=== PATIENT | male | born 1930 | race Caucasian/White ===

== ENCOUNTER → 2017-02-22 | Outpatient (CLI) | payer MEDICARE, OTHER ==
[~2017-02-22] MED LIST: ALPR0.5T7 PO; AMLO2.5T PO; ASP325T PO; ASPI-587 PO; ASPI-983 PO; ASPI325T32 PO; ATOR40TA PO; ATOR40TA70 PO; ATOR80TA2 PO; CETI10TA20 PO; CITA10TA7 PO; CITA10TA70 PO; DOXA2TAB2 PO; ENAL2.5T PO; FEXO180T PO; FINA5TAB6 PO; FNST5T PO; FURO20TA4 PO; MECL12.579 PO; MULT-963 PO; NEBI5TAB8 PO; NITR12SP5 TL; OMEG-13 PO; OMEG1CAP51 PO; POLY17PO6 PO; POTA10CA43 PO; POTA10TA10 PO; RIVA20TA PO; SENN8.6T10 PO; TAMS0.4C2 PO; TMSL.4C PO; TRAM50TA2 PO; WARF5TAB6 PO; WRF10T PO; WRF5T PO
== END ==
LOC: CARD 13:46
PROVIDERS: ATTEND Internal Medicine Cardiovascular Disease
DX: I25.10 Atherosclerotic heart disease of native coronary artery without angina pectoris (principal); I10 Essential (primary) hypertension; E78.2 Mixed hyperlipidemia; R06.02 Shortness of breath
CPT/HCPCS: 93306

== ENCOUNTER → 2017-05-29 | Outpatient (CLI) | payer MEDICARE, OTHER ==
[~2017-05-29] MED LIST changes: +SENN-148 PO; -SENN8.6T10 PO
--- NOTE | 2017-05-29 11:31 | Diagnostic Imaging Report ---
INDICATION: Recent fall. Now with headache. TECHNIQUE: Routine non contrast-enhanced axial images were obtained from the skull base to the vertex. COMPARISON: 05/06/2015. FINDINGS: The ventricles and cortical sulci are diffusely prominent, compatible with age-related volume loss. There are confluent areas of abnormal, low attenuation in the periventricular white matter. This is consistent with chronic small vessel ischemic changes. 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 There is no midline shift or mass-effect. No acute intra-axial hemorrhage is seen. There are no abnormal areas of increased or decreased density to suggest acute hemorrhage or edema. No extra-axial masses or collections are present. The bony calvarium is intact. The visualized paranasal sinuses show minimal mucosal thickening. The mastoid air cells are clear. IMPRESSION: 1. No acute intracranial abnormality. No CT evidence of mass, acute infarct or intracranial hemorrhage. 2. Chronic small vessel ischemic changes in the deep white matter. Dictated by: Dictated on workstation # [id number]
== END ==
LOC: RAD 11:01
PROVIDERS: ATTEND Nurse Practitioner Family
DX: R51 Headache (principal)
CPT/HCPCS: 70450

== ENCOUNTER 2017-05-31 16:06 | Observation (INO) | payer MEDICARE, OTHER ==
[~2017-05-31] VITALS: Ht 188 cm; Wt 75.8 kg
--- OUTSIDE RECORDS SUMMARY | 2017-05-31 16:13 | XMS REPORT | Continuity of Care Document ---
Author Author [facility] Organization [facility] Address Unknown Phone Unavailable Allergies Active Description Code Type Severity Reaction Onset Reported/Identified Relationship to Patient Clinical Status Yes doxycycline [id number] Drug Allergy Unknown N/A 12/23/2008 Yes loratadine [id number] Drug Allergy Unknown N/A 12/23/2008 Yes loratadine [id number] Drug Allergy Moderate HEADACHE 06/22/2015 Yes hydrocodone [id number] Drug Allergy Unknown N/A 06/22/2015 Yes loratadine [id number] Drug Allergy Unknown HEADACHE 06/22/2015 Medications Problems Date Dx Coded Attending Type Code Diagnosis Diagnosed By 04/09/2011 Ot 845.00 04/09/2011 Ot 959.7 04/09/2011 Ot E000.8 04/09/2011 Ot E888.9 08/03/2011 Ot 427.31 08/03/2011 Ot 427.81 08/08/2012 Ot 780.2 SYNCOPE AND COLLAPSE 08/08/2012 Ot 782.0 SKIN SENSATION DISTURB 08/08/2012 Ot V58.61 ANTICOAGULANTS,LT,CURRENT USE 08/08/2012 Ot V58.69 OTH MED,LT,CURRENT USE 10/07/2014 Ot 272.4 HYPERLIPIDEMIA NEC/NOS 10/07/2014 Ot 401.9 HYPERTENSION NOS 10/07/2014 Ot 414.01 CORONARY ATHEROSCLEROSIS OF [place] CORON 10/07/2014 Ot 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[place] 10/07/2014 Ot 427.31 ATRIAL FIBRILLATION 10/07/2014 Ot 427.81 SINOATRIAL NODE DYSFUNCT 10/07/2014 Ot 440.0 AORTIC ATHEROSCLEROSIS 10/07/2014 Ot 441.4 ABDOM AORTIC ANEURYSM 10/07/2014 Ot 786.50 CHEST PAIN NOS 10/07/2014 Ot 794.30 ABN CARDIOVASC STUDY NOS 10/07/2014 Ot V15.82 HISTORY OF TOBACCO USE 10/07/2014 Ot V45.81 AORTOCORONARY BYPASS 10/07/2014 Ot V58.61 ANTICOAGULANTS,LT,CURRENT USE 10/07/2014 Ot V58.69 OT MED,LT,CURRENT USE 05/26/2015 CAMMY DANG, RAJI Marcos Ot 780.4 05/26/2015 CAMMY DANG, RAJI Marcos Ot 781.2 06/03/2015 RAJI CHAWLA MD Ot 780.4 06/03/2015 RAJI CHAWLA MD Ot 781.2 06/22/2015 Ot 414.00 06/22/2015 Ot 424.0 06/22/2015 Ot 397.0 06/22/2015 Ot 401.9 06/22/2015 Ot 414.00 06/22/2015 Ot 424.0 06/22/2015 Ot 428.0 06/22/2015 Ot 427.31 06/22/2015 Ot 427.81 06/22/2015 Ot 272.4 06/22/2015 Ot 397.0 06/22/2015 Ot 401.9 06/22/2015 Ot 414.00 06/22/2015 Ot 424.0 06/22/2015 Ot 272.4 06/22/2015 Ot 401.9 06/22/2015 Ot 414.00 06/22/2015 RASTA DANG, BETZY Whaley Ot 787.91 06/22/2015 BETZY MAGDALENO MD Ot 789.00 06/22/2015 NICOLETTE PA, RASHAD K Ot 397.0 06/22/2015 NICOLETTE PA, RASHAD K Ot 401.9 06/22/2015 SKINNY-ABRAM PA, RASHAD K Ot 414.00 06/22/2015 SKINNY-ABRAM PA, RASHAD K Ot 424.0 06/22/2015 BABB-ABRAM PA, RASHAD K Ot 427.1 06/22/2015 BABB-ABRAM PA, RASHAD K Ot 427.31 06/22/2015 BABB-ABRAM PA, RASHAD K Ot 441.4 06/22/2015 BABB-ABRAM PA, RASHAD K Ot 780.2 06/22/2015 BABB-ABRAM PA, RASHAD K Ot 780.4 06/22/2015 BABB-ABRAM PA, RASHAD K Ot 272.4 06/22/2015 SKINNY-ABRAM PA, RASHAD K Ot 414.00 06/22/2015 SKINNYRASHAD VALVERDE Ot 427.31 06/22/2015 RASHAD DONATO Ot 429.3 06/22/2015 RASHAD DONATO Ot 780.2 06/22/2015 RASHAD DONATO Ot 780.4 06/22/2015 CAMMY DANG, RAJI Marcos Ot 780.4 06/22/2015 RAJI CHAWLA MD Ot 781.2 06/22/2015 ALY BAKER MD Ot I71.4 06/22/2015 Ot 427.31 06/22/2015 Ot 427.81 06/22/2015 Ot 427.31 06/22/2015 Ot 427.81 06/22/2015 Ot 427.31 06/22/2015 Ot 427.81 06/23/2015 RAJI CHAWLA MD Ot D64.9 ANEMIA, UNSPECIFIED 06/23/2015 RAJI CHAWLA MD Ot I10 ESSENTIAL (PRIMARY) HYPERTENSION 06/23/2015 RAJI CHAWLA MD Ot K56.41 FECAL IMPACTION 06/23/2015 RAJI CHAWLA MD Ot R33.9 RETENTION OF URINE, UNSPECIFIED 06/23/2015 RAJI CHAWLA MD Ot T85.698D [facility] COMPL OF INTERNAL PROSTH DEV/GRFT , 07/02/2015 ALY BAKER MD Ot I71.4 07/19/2015 ALY BAKER MD Ot I71.4 10/07/2015 Ot 414.00 10/07/2015 Ot 424.0 10/07/2015 Ot 397.0 10/07/2015 Ot 401.9 10/07/2015 Ot 414.00 10/07/2015 Ot 424.0 10/07/2015 Ot 428.0 10/07/2015 Ot 427.31 10/07/2015 Ot 427.81 10/07/2015 Ot 272.4 10/07/2015 Ot 397.0 10/07/2015 Ot 401.9 10/07/2015 Ot 414.00 10/07/2015 Ot 424.0 10/07/2015 Ot 272.4 10/07/2015 Ot 401.9 10/07/2015 Ot 414.00 10/07/2015 BETZY MAGDALENO MD Ot 787.91 10/07/2015 BETZY MAGDALENO MD Ot 789.00 10/07/2015 BABB-ABRAM PA, RASHAD K Ot 397.0 10/07/2015 BABB-ABRAM PA, RASHAD K Ot 401.9 10/07/2015 BABB-ABRAM PA, RASHAD K Ot 414.00 10/07/2015 BABB-ABRAM PA, RASHAD K Ot 424.0 10/07/2015 BABB-ABRAM PA, RASHAD K Ot 427.1 10/07/2015 BABB-ABRAM PA, RASHAD K Ot 427.31 10/07/2015 BABB-ABRAM PA, RASHAD K Ot 441.4 10/07/2015 BABB-ABRAM PA, RASHAD K Ot 780.2 10/07/2015 BABB-ABRAM PA, RASHAD K Ot 780.4 10/07/2015 BABB-ABRAM PA, RASHAD K Ot 272.4 10/07/2015 BABB-ABRAM PA, RASHAD K Ot 414.00 10/07/2015 BABB-ABRAM PA, RASHAD K Ot 427.31 10/07/2015 BABB-ABRAM PA, RASHAD K Ot 429.3 10/07/2015 BABB-ABRAM PA, RASHAD K Ot 780.2 10/07/2015 BABB-ABRAM PA, RASHAD K Ot 780.4 10/07/2015 CAMMY DANG, RAJI Marcos Ot 780.4 10/07/2015 RAJI CHAWLA MD Ot 781.2 10/07/2015 SAMUEL DANG, ALY Arora Ot I71.4 10/28/2015 JANET DANG, RAS Estrada Ot I48.91 10/28/2015 JANET DANG, RAS Estrada Ot E78.2 10/28/2015 JANET DANG, RAS Estrada Ot I10 10/28/2015 JANET DANG, RAS Estrada Ot I25.10 10/28/2015 JANET DANG, RAS Estrada Ot I48.0 10/28/2015 JANET DANG, RAS Estrada Ot I73.9 11/01/2015 JANET DANG, RAS Estrada Ot I48.91 11/16/2015 JANET DANG, RAS Estrada Ot E78.2 11/16/2015 JANET DANG, RAS Estrada Ot I10 11/16/2015 JANET DANG, RAS Estrada Ot I25.10 11/16/2015 RAS GONZALES MD Ot I48.0 11/16/2015 RAS GONZALES MD Ot I73.9 12/07/2015 RAS GONZALES MD Ot E78.2 MIXED HYPERLIPIDEMIA 12/07/2015 RAS GONZALES MD Ot I10 ESSENTIAL (PRIMARY) HYPERTENSION 12/07/2015 RAS GONZALES MD Ot I25.10 ATHSCL HEART DISEASE OF [place] CORONARY 12/07/2015 RAS GONZALES MD Ot I48.0 PAROXYSMAL ATRIAL FIBRILLATION 12/07/2015 RAS GONZALES MD Ot I73.9 PERIPHERAL VASCULAR DISEASE, UNSPECIFIED 02/22/2017 Ot 272.4 HYPERLIPIDEMIA NEC/NOS 02/22/2017 Ot 397.0 TRICUSPID VALVE DISEASE 02/22/2017 Ot 401.9 HYPERTENSION NOS 02/22/2017 Ot 414.00 CORON ATHEROSCLER NOS TYPE VESSEL, NATIV 02/22/2017 Ot 424.0 MITRAL VALVE DISORDER 02/22/2017 Ot 272.4 HYPERLIPIDEMIA NEC/NOS 02/22/2017 Ot 401.9 HYPERTENSION NOS 02/22/2017 Ot 414.00 CORON ATHEROSCLER NOS TYPE VESSEL, NATIV 02/22/2017 RASTA DANG, BETZY Whaley Ot 787.91 DIARRHEA 02/22/2017 RASTA DANG, BETZY Whaley Ot 789.00 ABDOMINAL PAIN, UNSPECIFIED SITE 02/22/2017 RASHAD DONATO Ot 397.0 TRICUSPID VALVE DISEASE 02/22/2017 RASHAD DONATO Ot 401.9 HYPERTENSION NOS 02/22/2017 RASHAD DONATO Ot 414.00 CORON ATHEROSCLER NOS TYPE VESSEL, NATIV 02/22/2017 RASHAD DONATO Ot 424.0 MITRAL VALVE DISORDER 02/22/2017 RASHAD DONATO Ot 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 02/22/2017 RASHAD DONATO Ot 427.31 ATRIAL FIBRILLATION 02/22/2017 RASHAD DONATO Ot 441.4 ABDOM AORTIC ANEURYSM 02/22/2017 RASHAD DONATO Ot 780.2 SYNCOPE AND COLLAPSE 02/22/2017 RASHAD DONATO Ot 780.4 DIZZINESS AND GIDDINESS 02/22/2017 RASHAD DONATO Ot 272.4 HYPERLIPIDEMIA NEC/NOS 02/22/2017 RASHAD DONATO Ot 414.00 CORON ATHEROSCLER NOS TYPE VESSEL, NATIV 02/22/2017 RASHAD DONATO Ot 427.31 ATRIAL FIBRILLATION 02/22/2017 RASHAD DONATO Ot 429.3 CARDIOMEGALY 02/22/2017 RASHAD DONATO Ot 780.2 SYNCOPE AND COLLAPSE 02/22/2017 RASHAD DONATO Ot 780.4 DIZZINESS AND GIDDINESS 02/22/2017 RAJI CHAWLA MD Ot 780.4 DIZZINESS AND GIDDINESS 02/22/2017 RAJI CHAWLA MD Ot 781.2 ABNORMALITY OF GAIT 02/22/2017 SAMUEL DANG, ALY Arora Ot I71.4 ABDOMINAL AORTIC ANEURYSM, 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 02/22/2017 RAS GONZALES MD Ot I48.91 UNSPECIFIED ATRIAL FIBRILLATION 02/22/2017 RAS GONZALES MD Ot E78.2 MIXED HYPERLIPIDEMIA 02/22/2017 RAS GONZALES MD Ot I10 ESSENTIAL (PRIMARY) HYPERTENSION 02/22/2017 RAS GONZALES MD Ot I25.10 ATHSCL HEART DISEASE OF [place] CORONARY 02/22/2017 RAS GONZALES MD Ot I48.0 PAROXYSMAL ATRIAL FIBRILLATION 02/22/2017 RAS GONZALES MD Ot I73.9 PERIPHERAL VASCULAR DISEASE, UNSPECIFIED 02/23/2017 RAS GONZALES MD Ot E78.2 MIXED HYPERLIPIDEMIA 02/23/2017 RAS GONZALES MD Ot I10 ESSENTIAL (PRIMARY) HYPERTENSION 02/23/2017 RAS GONZALES MD Ot I25.10 ATHSCL HEART DISEASE OF [place] CORONARY 02/23/2017 RAS GONZALES MD Ot R06.02 SHORTNESS OF BREATH 02/26/2017 RAS GONZALES MD Ot E78.2 MIXED HYPERLIPIDEMIA 02/26/2017 RAS GONZALES MD Ot I10 ESSENTIAL (PRIMARY) HYPERTENSION 02/26/2017 RAS GONZALES MD Ot I25.10 ATHSCL HEART DISEASE OF [place] CORONARY 02/26/2017 RAS GONZALES MD Ot R06.02 SHORTNESS OF BREATH 02/26/2017 RAS GONZALES MD Ot E78.2 MIXED HYPERLIPIDEMIA 02/26/2017 RAS GONZALES MD J Ot I10 ESSENTIAL (PRIMARY) HYPERTENSION 02/26/2017 RAS GONZALES MD Ot I25.10 ATHSCL HEART DISEASE OF [place] CORONARY 02/26/2017 RAS GONZALES MD Ot R06.02 SHORTNESS OF BREATH 02/26/2017 RAS GONZALES MD Ot E78.2 MIXED HYPERLIPIDEMIA 02/26/2017 RAS GONZALES MD J Ot I10 ESSENTIAL (PRIMARY) HYPERTENSION 02/26/2017 RAS GONZALES MD Ot I25.10 ATHSCL HEART DISEASE OF [place] CORONARY 02/26/2017 RAS GONZALES MD Ot R06.02 SHORTNESS OF BREATH 02/26/2017 RAS GONZALES MD Ot E78.2 MIXED HYPERLIPIDEMIA 02/26/2017 RAS GONZALES MD Ot I10 ESSENTIAL (PRIMARY) HYPERTENSION 02/26/2017 RAS GONZALES MD Ot I25.10 ATHSCL HEART DISEASE OF [place] CORONARY 02/26/2017 RAS GONZALES MD Ot R06.02 SHORTNESS OF BREATH 02/26/2017 RAS GONZALES MD Ot E78.2 MIXED HYPERLIPIDEMIA 02/26/2017 RAS GONZALES MD Ot I10 ESSENTIAL (PRIMARY) HYPERTENSION 02/26/2017 RAS GONZALES MD Ot I25.10 ATHSCL HEART DISEASE OF [place] CORONARY 02/26/2017 RAS GONZALES MD Ot R06.02 SHORTNESS OF BREATH 02/26/2017 RAS GONZALES MD Ot E78.2 MIXED HYPERLIPIDEMIA 02/26/2017 RAS GONZALES MD Ot I10 ESSENTIAL (PRIMARY) HYPERTENSION 02/26/2017 RAS GONZALES MD Ot I25.10 ATHSCL HEART DISEASE OF [place] CORONARY 02/26/2017 RAS GONZALES MD Ot R06.02 SHORTNESS OF BREATH 03/16/2017 RAS GONZALES MD Ot E78.2 MIXED HYPERLIPIDEMIA 03/16/2017 RAS GONZALES MD J Ot I10 ESSENTIAL (PRIMARY) HYPERTENSION 03/16/2017 RAS GONZALES MD Ot I25.10 ATHSCL HEART DISEASE OF [place] CORONARY 03/16/2017 RAS GONZALES MD J Ot R06.02 SHORTNESS OF BREATH 03/26/2017 RAS GONZALES MD Ot E78.2 MIXED HYPERLIPIDEMIA 03/26/2017 RAS GONZALES MD Ot I10 ESSENTIAL (PRIMARY) HYPERTENSION 03/26/2017 RAS GONZALES MD Ot I25.10 ATHSCL HEART DISEASE OF [place] CORONARY 03/26/2017 RAS GONZALES MD Ot R06.02 SHORTNESS OF BREATH Procedures Results Encounters ACCT No. Visit Date/Time Discharge Status Pt. Type Provider Facility Loc./Unit Complaint [id number] 02/22/2017 13:46:00 2016 23:59:59 CLS Outpatient RAS GONZALES MD [facility] CARD CAD I25.10,HTN I10 [id number] 10/25/2015 08:11:00 2015 23:59:59 CLS Outpatient RAS GONZALES MD [facility] CARD AF,CAD,HTN,MIXED HYPERLIPIDEMIA,PVD [id number] 10/07/2015 13:42:00 2015 23:59:59 CLS Outpatient RAS GONZALES MD [facility] CARD AF NON TRAMATIC TEAR OF SKIN [id number] 06/21/2015 20:56:00 2014 09:36:00 DIS Inpatient RAJI CHAWLA MD [facility] 4TH FECAL IMPACTION,ENDOLEAK OF ANEURYSM, ANEMIA, [id number] 06/09/2015 09:33:00 2014 23:59:59 CLS Outpatient ALY BAKER MD [facility] RT AAA [id number] 05/06/2015 09:07:00 2014 23:59:59 CLS Outpatient RAJI CHAWLA MD [facility] RAD DIZZINESS, GAIT ABNORMALITIY, MILD MEMORY LOSS [id number] 04/22/2014 07:27:00 2013 23:59:59 CLS Outpatient RASHAD DONATO [facility] CARD AF,CAD,HTN,HLP [id number] 04/21/2014 07:34:00 2013 23:59:59 CLS Outpatient NICOLETTE KAPLAN, RASHAD Albarran [facility] CARD AF,CAD,HTN,HLP [id number] 10/22/2013 10:03:00 2013 23:59:59 CLS Outpatient BETZY MAGDALENO MD [facility] RAD DIARRHEA,ABD PAIN [id number] 06/22/2015 01:20:00 Document Registration [id number] 10/07/2014 07:48:00 Document Registration [id number] 09/25/2012 07:16:00 Document Registration [id number] 09/24/2012 10:02:00 Document Registration [id number] 08/08/2012 09:56:00 Document Registration [id number] 08/04/2011 09:00:00 Document Registration [id number] 05/05/2011 08:31:00 Document Registration [id number] 04/25/2011 08:45:00 Document Registration [id number] 04/09/2011 08:37:00 Document Registration [id number] 04/20/2010 08:17:00 Document Registration
--- NOTE | 2017-05-31 16:21 | ED Neurological Problem ---
General Chief Complaint: Neuro-Stroke Like Symptoms Stated Complaint: STROKE SYMPTOMS;NUMB MOUTH AND ARM Nursing Triage Note: per patient has been having difficulty speaking for the last 30 minutes, patient reports that patient has periods that are worse than others and times where he is normal. Patient reports that he has had weakness and was dropping stuff with his L hand yesterday and today Nursing Sepsis Screen: No Definite Risk Source: patient Exam Limitations: no limitations History of Present Illness Time seen by provider: 16:10 Initial Comments Here from home with who reports difficulty speaking for the last 30 minutes. Apparently yesterday he woke up and had weakness and was drop and step with his left hand intermittently yesterday and today. That had resolved and then he was doing okay but then was having intermittent speech difficulty. Complains of headache. Apparently had a fall a couple weeks ago and had a CT scan afterwards. Patient is on Xarelto. He reports that he has the speech staff where he can't get his words out. Timing/Duration: 1/2 hour Severity: moderate Associated Symptoms: confusion, No fever/chills, No loss of consciousness, No muscle spasms, slurred speech, weakness Allergies and Home Medications Allergies Coded Allergies: doxycycline (Verified Allergy, Unknown, 12/23/08) hydrocodone (Unverified Allergy, Unknown, 06/22/15) loratadine (Verified Adverse Reaction, Intermediate, HEADACHE, 06/22/15) Home Medications Alprazolam 0.5 Mg Tablet, 0.25-0.5 MG PO BID PRN for ANXIETY, (Reported) Aspirin 81 Mg Tablet.dr, 81 MG PO DAILY, (Reported) Atorvastatin Calcium 40 Mg Tablet, 40 MG PO HS, (Reported) Cetirizine HCl 10 Mg Tablet, 10 MG PO DAILY, (Reported) Citalopram Hydrobromide 10 Mg Tablet, 10 MG PO DAILY, (Reported) Doxazosin Mesylate 2 Mg Tablet, 2 MG PO HS, (Reported) LAST FILLED 01-12-15 #90 Enalapril Maleate 2.5 Mg Tablet, 2.5 MG PO BID, (Reported) Finasteride 5 Mg Tablet, 5 MG PO DAILY, (Reported) Furosemide 20 Mg Tablet, 20 MG PO DAILY PRN for SWELLING, (Reported) Multivitamin 1 Each Tablet, 1 TAB PO DAILY, (Reported) Nebivolol HCl 5 Mg Tablet, 5 MG PO HS, (Reported) Nitroglycerin 12 Gm [place], 1 SPRAY TL UD PRN for CHEST PAIN, (Reported) [place]-3 Fatty Acids/Fish Oil 1 Each Capsule, 1,200 MG PO BID, (Reported) Polyethylene Glycol 3350 17 Gm Powd.pack, 17 GM PO DAILY, #30 Ref 1 Prescribed by: RAJI PALOMARES on 06/23/15 0935 Potassium Chloride 10 Meq Tablet.er, 10 MEQ PO DAILY PRN for WHEN TAKING FUROSEMIDE, (Reported) Rivaroxaban 20 Mg Tablet, 20 MG PO DAILY @ 1800, (Reported) Sennosides 8.6 Mg Tablet, 8.6 MG PO BID PRN for CONSTIPATION, #60 Ref 1 Prescribed by: RAJI PALOMARES on 06/23/15 0935 Tramadol HCl 50 Mg Tablet, 50 MG PO Q6H PRN for PAIN, (Reported) Constitutional: see HPI, No chills, No fever Eyes: No Symptoms Reported Ears, Nose, Mouth, Throat: no symptoms reported Respiratory: no symptoms reported Cardiovascular: no symptoms reported Gastrointestinal: No abdominal pain, No nausea, No vomiting Genitourinary: no symptoms reported Musculoskeletal: see HPI, muscle weakness Skin: no symptoms reported Psychiatric/Neurological: See HPI, Headache, Weakness Endocrine: No Symptoms Reported All Other Systems Reviewed Negative Unless Noted: Yes Past Shjpuqf-Fkpxjz-Trpfbj Hx Patient Social History Alcohol Use: Denies Use Recreational Drug Use: No Smoking Status: Former Smoker 2nd Hand Smoke Exposure: No Recent Foreign Travel: No Contact w/Someone Who Travel: No Recent Infectious Disease Expo: No Immunizations Up To Date Tetanus Booster (TDap): Unknown Date of Pneumonia Vaccine: May 20, 2013 Date of Influenza Vaccine: May 19, 2015 Surgeries History of Surgeries: Yes Surgeries: Abdominal, CABG, Pacemaker, Vascular Surgery Respiratory History of Respiratory Disorde: No Cardiovascular History of Cardiac Disorders: Yes Cardiac Disorders: Aneurysm, Atrial Fibrillation, Coronary Artery Disease, Hypertension, Valvular Heart Disease Neurological History of Neurological Disord: No Reproductive System Hx Reproductive Disorders: No Sexually Transmitted Disease: No HIV/AIDS: No Genitourinary Genitourinary Disorders: Benign Prostatic Hyperpl Gastrointestinal History of Gastrointestinal Di: Yes (FECAL IMPACTION 06/22/15) Musculoskeletal History of Musculoskeletal Dis: Yes Musculoskeletal Disorders: Arthritis Endocrine History of Endocrine Disorders: No HEENT HEENT Disorders: Cataract Loss of Vision: Denies Hearing Impairment: Denies Cancer History of Cancer: No Psychosocial History of Psychiatric Problem: Yes Behavioral Health Disorders: Anxiety Integumentary History of Skin or Integumenta: No Blood Transfusions History of Blood Disorders: No Adverse Reaction to a Blood Tr: No Reviewed Nursing Assessment Reviewed/Agree w Nursing PMH: Yes Family Medical History Significant Family History: Heart Disease, Hypertension, Stroke Family Medial History: FH: lung cancer G8 BROTHER FH: stroke 19 FATHER Myocardial infarction 19 FATHER G8 SISTER Physical Exam Vital Signs Vital Sign - Last 12Hours 05/31/17 16:12 Temp 98.2 Pulse 76 Resp 18 B/P (MAP) 163/76 Pulse Ox 98 Capillary Refill : Less Than 3 Seconds General Appearance: WD/WN, no apparent distress HEENT: PERRL/EOMI, pharynx normal Neck: full range of motion, supple Respiratory: lungs clear, normal breath sounds Cardiovascular: regular rate, rhythm, no murmur Gastrointestinal: non tender, soft Back: normal inspection, no CVA tenderness, no vertebral tenderness Extremities: normal range of motion, non-tender, normal inspection, no pedal edema Neurologic/Psychiatric: alert, normal mood/affect, oriented x 3 Crainal Nerves: normal hearing, other (intermittent speech difficulty with word searching and garbled speech and then clears) Coordination/Gait: normal finger to nose, normal gait Motor/Sensory: no motor deficit, no sensory deficit, no pronator drift Skin: normal color, warm/dry Progress/Results/Core Measures Results/Orders Lab Results Laboratory Tests Test 05/31/17 16:30 Range/Units White Blood Count 5.5 4.3-11.0 10^3/uL Red Blood Count 3.66 L 4.35-5.85 10^6/uL Hemoglobin 11.8 L 13.3-17.7 G/DL Hematocrit 36 L 40-54 % Mean Corpuscular Volume 98 80-99 FL Mean Corpuscular Hemoglobin 32 25-34 PG Mean Corpuscular Hemoglobin Concent 33 32-36 G/DL Red Cell Distribution Width 14.2 10.0-14.5 % Platelet Count 181 130-400 10^3/uL Mean Platelet Volume 9.3 7.4-10.4 FL Neutrophils (%) (Auto) 70 42-75 % Lymphocytes (%) (Auto) 21 12-44 % Monocytes (%) (Auto) 9 0-12 % Eosinophils (%) (Auto) 0 0-10 % Basophils (%) (Auto) 0 0-10 % Neutrophils # (Auto) 3.9 1.8-7.8 X 10^3 Lymphocytes # (Auto) 1.1 1.0-4.0 X 10^3 Monocytes # (Auto) 0.5 0.0-1.0 X 10^3 Eosinophils # (Auto) 0.0 0.0-0.3 10^3/uL Basophils # (Auto) 0.0 0.0-0.1 10^3/uL Prothrombin Time 15.6 H 12.2-14.7 SEC INR Comment 1.2 0.8-1.4 Activated Partial Thromboplast Time 36 H 24-35 SEC D-Dimer 1.18 H 0.00-0.49 UG/ML Sodium Level 137 135-145 MMOL/L Potassium Level 4.2 3.6-5.0 MMOL/L Chloride Level 104 98-107 MMOL/L Carbon Dioxide Level 25 21-32 MMOL/L Anion Gap 8 5-14 MMOL/L Blood Urea Nitrogen 19 H 7-18 MG/DL Creatinine 1.56 H 0.60-1.30 MG/DL Estimat Glomerular Filtration Rate 42 BUN/Creatinine Ratio 12 Glucose Level 114 H 70-105 MG/DL Calcium Level 9.5 8.5-10.1 MG/DL Total Bilirubin 0.7 0.1-1.0 MG/DL Aspartate Amino Transf (AST/SGOT) 18 5-34 U/L Alanine Aminotransferase (ALT/SGPT) 11 0-55 U/L Alkaline Phosphatase 68 40-136 U/L Troponin I < 0.30 <0.30 NG/ML Total Protein 7.5 6.4-8.2 GM/DL Albumin 4.1 3.2-4.5 GM/DL My Orders Orders - ABHI MOCK MD Cbc With Automated Diff (05/31/17 16:18) Protime With Inr (05/31/17 16:18) Partial Thromboplastin Time (05/31/17 16:18) Comprehensive Metabolic Panel (05/31/17 16:18) Fibrin Degradation Products (05/31/17 16:18) Troponin I (05/31/17 16:18) Ua Culture If Indicated (05/31/17 16:18) Chest 1 View, Ap/Pa Only (05/31/17 16:18) Ekg Tracing (05/31/17 16:18) Nothing By Mouth (05/31/17 Dinner) Accucheck Stat ONCE (05/31/17:18) Saline Lock/Iv-Start (05/31/17 16:18) Vital Signs - Stroke Q15M (05/31/17 16:18) Ct Head Wo-R/O Stroke (05/31/17 16:18) O2 (05/31/17:18) Intake & Output 06,14,22 (05/31/17 16:18) Monitor-Rhythm Ecg Trace Only (05/31/17 16:18) Dysphagia Screening Tool (05/31/17:) Vital Signs/I&O Vital Sign - Last 12Hours 05/31/17 16:12 Temp 98.2 Pulse 76 Resp 18 B/P (MAP) 163/76 Pulse Ox 98 Blood Pressure Mean: 105 Progress Note : Progress Note Seen and evaluated on arrival. Stroke team activation initiated. Rapid assessment completed. Patient's symptoms resolved after removing the patient but then had garbled speech to for a few minutes and then that resolved again. Stroke scale 0 at time of evaluation. Rapid CT assessment ordered. Patient is not candidate for TPA due to low stroke scale and rapidly resolving symptoms as well as being on Xarelto. Labs, UA, EKG and chest x-ray ordered. Monitor patient. Patient was able to walk without difficulty and passed his dysphagia screen. I did discuss the case with Dr. Palomares at 1728. We will admit the patient for observation. Patient has elevated d-dimer. He is on Xarelto 20 mg daily and is taking that as directed. We will go ahead and initiate a dose of that now and give ASA 325 milligrams by mouth. Patient is complaining of headache. Tramadol 50 mg by mouth given as he said Tylenol is not helping. Admit, observation status. Dr. Palomares accepts patient for admission. Patient and family agree with plan. Carotid ultrasound in a.m. ECG Initial ECG Impression Date: May 31, 2017 Initial ECG Impression Time: 16:31 Initial ECG Rate: 72 Comment Ventricular paced rhythm with nonspecific intraventricular conduction delay. No evidence of ST elevation [place]. Similar to previous. Interpreted by me. Diagnostic Imaging Diagonstic Imaging: CT Plain Films/CT/US/NM/MRI: head Comments NAME: VISHAL MILLER [facility] REC#: [id number] PT STATUS: REG ER : 1929 PHYSICIAN: ABHI MOCK MD ADMIT DATE: 05/31/17/ER Signed Date of Exam: 05/31/17 CT HEAD WO-R/O STROKE CLINICAL INDICATION: Patient with intermittent left hand weakness, numbness x2 days. Patient has intermittent slurred speech. EXAM: Axial CT scan of brain performed without IV contrast. COMPARISON: Head CT without IV contrast dated 05/29/2017. Head CT without IV contrast dated 04/23/2008. FINDINGS: There is no evidence of acute cerebral infarct, intracranial hemorrhage, or gross mass effect. Stable prominent perivascular space versus chronic lacunar infarct involving right basal ganglia region. There is stable focal area of low attenuation involving the medial right thalamus which is seen on the comparison head CT dated 04/23/2008. Again seen diffuse brain parenchymal volume loss. There is normal tim-white matter distinction. There is no significant midline shift or herniation. There is no evidence of hydrocephalus. The basal cisterns are unremarkable. The skull, extracranial soft tissue, and orbits are unremarkable. The paranasal sinuses are unremarkable. IMPRESSION: Stable CT scan of brain with no evidence of interval acute intracranial process. If there is continued concern for acute cerebral infarct, then MRI of the brain would better evaluate. Dictated by: Dictated on workstation # [id number] Dict: 05/31/17 1629 Trans: 05/31/17 173 Interpreted by: ENEDINA SARAVIA MD Electronically signed by: ENEDINA SARAVIA MD 05/31/17 1734 Diagonstic Imaging: Xray Plain Films/CT/US/NM/MRI: chest Comments NAME: VISHAL MILLER [facility] REC#: [id number] PT STATUS: REG ER : 1929 PHYSICIAN: ABHI MOCK MD ADMIT DATE: 05/31/17/ER Signed Date of Exam: 05/31/17 CHEST 1 VIEW, AP/PA ONLY INDICATION: Stroke protocol. COMPARISON: 10/07/2014. EXAMINATION: Single frontal radiographic view of the chest was obtained. FINDINGS: Moderate cardiomegaly. Pulmonary vasculature, however, is within normal limits. Left-sided single lead pacemaker and sternotomy wires are noted. There is aortic atherosclerosis. Lungs are clear and show no focal consolidations, large effusion or pneumothoraces. Bony structures show no gross acute abnormality. IMPRESSION: Moderate cardiomegaly, but no evidence of overt failure. Dictated by: Dictated on workstation # [id number] Dict: 05/31/17 1629 Trans: 05/31/17 1737 Interpreted by: KISHORE DAVIS MD Electronically signed by: KISHORE DAVIS MD 05/31/17 1737 Departure Communication (Admissions) Time/Spoke to Admitting Phy: 17:28 Impression Impression: Primary Impression: Transient cerebral ischemia Qualified Codes: G45.9 - Transient cerebral ischemic attack, unspecified Disposition: ADMITTED INPATIENT Condition: Stable Admissions Decision to Admit Reason: Admit from ER (General) Decision to Admit/Date: May 31, 2017 Time/Decision to Admit Time: 17:28 Departure-Patient Inst. Referrals: RAJI PALOMARES MD (PCP/Family) Primary Care Physician ABHI MOCK MD May 31, 2017 16:21
--- NOTE | 2017-05-31 16:34 | Diagnostic Imaging Report ---
INDICATION: Stroke protocol. COMPARISON: 10/07/2014. EXAMINATION: Single frontal radiographic view of the chest was obtained. FINDINGS: Moderate cardiomegaly. Pulmonary vasculature, however, is within normal limits. Left-sided single lead pacemaker and sternotomy wires are noted. There is aortic atherosclerosis. Lungs are clear and show no focal consolidations, large effusion or pneumothoraces. Bony structures show no gross acute abnormality. IMPRESSION: Moderate cardiomegaly, but no evidence of overt failure. Dictated by: Dictated on workstation # [id number]
--- NOTE | 2017-05-31 16:38 | Diagnostic Imaging Report ---
CLINICAL INDICATION: Patient with intermittent left hand weakness, numbness x2 days. Patient has intermittent slurred speech. EXAM: Axial CT scan of brain performed without IV contrast. COMPARISON: Head CT without IV contrast dated 05/29/2017. Head CT without IV contrast dated 04/23/2008. FINDINGS: There is no evidence of acute cerebral infarct, intracranial hemorrhage, or gross mass effect. Stable prominent perivascular space versus chronic lacunar infarct involving right basal ganglia region. There is stable focal area of low attenuation involving the medial right thalamus which is seen on the comparison head CT dated 04/23/2008. Again seen diffuse brain parenchymal volume loss. There is normal tim-white matter distinction. There is no significant midline shift or herniation. There is no evidence of hydrocephalus. The basal cisterns are unremarkable. The skull, extracranial soft tissue, and orbits are unremarkable. The paranasal sinuses are unremarkable. IMPRESSION: Stable CT scan of brain with no evidence of interval acute intracranial process. If there is continued concern for acute cerebral infarct, then MRI of the brain would better evaluate. Dictated by: Dictated on workstation # [id number]
[2017-05-31 16:39] LABS: BASOPHILS % (AUTO) 0 % (0-10); EOSINOPHILS % (AUTO) 0 % (0-10); LYMPHOCYTES # (AUTO) 1.1 X 10^3 (1.0-4.0); LYMPHOCYTES % (AUTO) 21 % (12-44); MEAN CORPUSCULAR HEMOGLOBIN 32 PG (25-34); MEAN CORPUSCULAR HGB CONC 33 G/DL (32-36); MEAN CORPUSCULAR VOLUME 98 FL (80-99); MEAN PLATELET VOLUME 9.3 FL (7.4-10.4); MONOCYTES # (AUTO) 0.5 X 10^3 (0.0-1.0); MONOCYTES % (AUTO) 9 % (0-12); NEUTROPHILS # (AUTO) 3.9 X 10^3 (1.8-7.8); NEUTROPHILS % (AUTO) 70 % (42-75); PLATELET COUNT 181 10^3/uL (130-400); RED BLOOD COUNT 3.66 10^6/uL (4.35-5.85); RED CELL DISTRIBUTION WIDTH 14.2 % (10.0-14.5); WHITE BLOOD COUNT 5.5 10^3/uL (4.3-11.0)
[2017-05-31 16:49] LABS: INR 1.2 (0.8-1.4); PROTHROMBIN TIME PATIENT 15.6 SEC (12.2-14.7)
[2017-05-31 16:57] LABS: ALANINE AMINOTRANSFERASE 11 U/L (0-55); ALBUMIN 4.1 GM/DL (3.2-4.5); ANION GAP 8 MMOL/L (5-14); ASPARTATE AMINO TRANSFERASE 18 U/L (5-34); BILIRUBIN,TOTAL 0.7 MG/DL (0.1-1.0); BLOOD UREA NITROGEN 19 MG/DL (7-18); BUN/CREATININE RATIO 12; CALCIUM 9.5 MG/DL (8.5-10.1); CARBON DIOXIDE 25 MMOL/L (21-32); CHLORIDE 104 MMOL/L (98-107); CREATININE SERUM 1.56 MG/DL (0.60-1.30); GFR ESTIMATED 42; GLUCOSE 114 MG/DL (70-105); POTASSIUM 4.2 MMOL/L (3.6-5.0); SODIUM 137 MMOL/L (135-145); TOTAL PROTEIN 7.5 GM/DL (6.4-8.2)
[2017-05-31 17:03] LABS: TROPONIN I < 0.30 NG/ML (<0.30)
[2017-05-31] MEDS ORDERED: NS IV 1000 ML 1,000 ML IV ONE (17:36)
[2017-05-31] MEDS ORDERED: ASPIRIN 325 MG (5 GR) TABLET PO STA (17:43)
[2017-05-31] MEDS ORDERED: RIVAROXABAN 20 MG TABLET (XARELTO) PO ONE (17:45)
--- OUTSIDE RECORDS SUMMARY | 2017-05-31 17:53 | XMS REPORT | Continuity of Care Document ---
Author Author [facility] Organization [facility] Address Unknown Phone Unavailable Allergies Active Description Code Type Severity Reaction Onset Reported/Identified Relationship to Patient Clinical Status Yes doxycycline [id number] Drug Allergy Unknown N/A 12/23/2008 Yes loratadine [id number] Drug Allergy Unknown N/A 12/23/2008 Yes loratadine [id number] Drug Allergy Moderate HEADACHE 06/22/2015 Yes hydrocodone [id number] Drug Allergy Unknown N/A 06/22/2015 Yes loratadine [id number] Drug Allergy Unknown HEADACHE 06/22/2015 Medications Problems [...] NOS 10/07/2014 Ot 414.01 CORONARY ATHEROSCLEROSIS OF [place] CORON 10/07/2014 Ot 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 [...] UNSPECIFIED 06/23/2015 RAJI CHAWLA MD Ot T85.698D [facility] COMPL OF INTERNAL PROSTH DEV/GRFT , 07/02/2015 [...] BETZY MAGDALENO MD Ot 787.91 10/07/2015 BETZY MAGDALNEO MD Ot 789.00 10/07/2015 BABB-ABRAM PA, RASHAD [...] MD Ot I25.10 ATHSCL HEART DISEASE OF [place] CORONARY 12/07/2015 RAS GONZALES MD Ot I48.0 [...] MD Ot I25.10 ATHSCL HEART DISEASE OF [place] CORONARY 02/22/2017 RAS GONZALES MD Ot I48.0 PAROXYSMAL ATRIAL FIBRILLATION 02/22/2017 RAS GONZALES MD Ot I73.9 PERIPHERAL VASCULAR DISEASE, UNSPECIFIED 02/23/2017 RAS GONZALES MD Ot E78.2 MIXED HYPERLIPIDEMIA 02/23/2017 RAS GONZALES MD Ot I10 ESSENTIAL (PRIMARY) HYPERTENSION 02/23/2017 RAS GONZALES MD Ot I25.10 ATHSCL HEART DISEASE OF [place] CORONARY 02/23/2017 RAS GONZALES MD Ot R06.02 SHORTNESS OF BREATH 02/26/2017 RAS GONZALES MD Ot E78.2 MIXED HYPERLIPIDEMIA 02/26/2017 RAS GONZALES MD Ot I10 ESSENTIAL (PRIMARY) HYPERTENSION 02/26/2017 RAS GONZALES MD Ot I25.10 ATHSCL HEART DISEASE OF [place] CORONARY 02/26/2017 RAS GONZALES MD Ot R06.02 SHORTNESS OF BREATH 02/26/2017 RAS GONZALES MD Ot E78.2 MIXED HYPERLIPIDEMIA 02/26/2017 RAS GONZALES MD J Ot I10 ESSENTIAL (PRIMARY) HYPERTENSION 02/26/2017 RAS GONZALES MD Ot I25.10 ATHSCL HEART DISEASE OF [place] CORONARY 02/26/2017 RAS GONZALES MD Ot R06.02 SHORTNESS OF BREATH 02/26/2017 RAS GONZALES MD Ot E78.2 MIXED HYPERLIPIDEMIA 02/26/2017 RAS GONZALES MD J Ot I10 ESSENTIAL (PRIMARY) HYPERTENSION 02/26/2017 RAS GONZALES MD Ot I25.10 ATHSCL HEART DISEASE OF [place] CORONARY 02/26/2017 RAS GONZALES MD Ot R06.02 SHORTNESS OF BREATH 02/26/2017 RAS GONZALES MD Ot E78.2 MIXED HYPERLIPIDEMIA 02/26/2017 RAS GONZALES MD Ot I10 ESSENTIAL (PRIMARY) HYPERTENSION 02/26/2017 RAS GONZALES MD Ot I25.10 ATHSCL HEART DISEASE OF [place] CORONARY 02/26/2017 RAS GONZALES MD Ot R06.02 SHORTNESS OF BREATH 02/26/2017 RAS GONZALES MD Ot E78.2 MIXED HYPERLIPIDEMIA 02/26/2017 RAS GONZALES MD Ot I10 ESSENTIAL (PRIMARY) HYPERTENSION 02/26/2017 RAS GONZALES MD Ot I25.10 ATHSCL HEART DISEASE OF [place] CORONARY 02/26/2017 RAS GONZALES MD Ot R06.02 SHORTNESS OF BREATH 02/26/2017 RAS GONZALES MD Ot E78.2 MIXED HYPERLIPIDEMIA 02/26/2017 RAS GONZALES MD Ot I10 ESSENTIAL (PRIMARY) HYPERTENSION 02/26/2017 RAS GONZALES MD Ot I25.10 ATHSCL HEART DISEASE OF [place] CORONARY 02/26/2017 RAS GONZALES MD Ot R06.02 SHORTNESS OF BREATH 03/16/2017 RAS GONZALES MD Ot E78.2 MIXED HYPERLIPIDEMIA 03/16/2017 RAS GONZALES MD J Ot I10 ESSENTIAL (PRIMARY) HYPERTENSION 03/16/2017 RAS GONZALES MD Ot I25.10 ATHSCL HEART DISEASE OF [place] CORONARY 03/16/2017 RAS GONZALES MD J Ot R06.02 SHORTNESS OF BREATH 03/26/2017 RAS GONZALES MD Ot E78.2 MIXED HYPERLIPIDEMIA 03/26/2017 RAS GONZALES MD Ot I10 ESSENTIAL (PRIMARY) HYPERTENSION 03/26/2017 RAS GONZALES MD Ot I25.10 ATHSCL HEART DISEASE OF [place] CORONARY 03/26/2017 RAS GONZALES MD Ot R06.02 SHORTNESS OF BREATH Procedures Results Encounters ACCT No. Visit Date/Time Discharge Status Pt. Type Provider Facility Loc./Unit Complaint [id number] 02/22/2017 13:46:00 2016 23:59:59 CLS Outpatient RAS GONZALES MD [facility] CARD CAD I25.10,HTN I10 [id number] 10/25/2015 08:11:00 2015 23:59:59 CLS Outpatient RAS GONZALES MD [facility] CARD AF,CAD,HTN,MIXED HYPERLIPIDEMIA,PVD [id number] 10/07/2015 13:42:00 2015 23:59:59 CLS Outpatient RAS GONZALES MD [facility] CARD AF NON TRAMATIC TEAR OF SKIN [id number] 06/21/2015 20:56:00 2014 09:36:00 DIS Inpatient RAJI CHAWLA MD [facility] 4TH FECAL IMPACTION,ENDOLEAK OF ANEURYSM, ANEMIA, [id number] 06/09/2015 09:33:00 2014 23:59:59 CLS Outpatient ALY BAKER MD [facility] RT AAA [id number] 05/06/2015 09:07:00 2014 23:59:59 CLS Outpatient RAJI CHAWLA MD [facility] RAD DIZZINESS, GAIT ABNORMALITIY, MILD MEMORY LOSS [id number] 04/22/2014 07:27:00 2013 23:59:59 CLS Outpatient RASHAD DONATO [facility] CARD AF,CAD,HTN,HLP [id number] 04/21/2014 07:34:00 2013 23:59:59 CLS Outpatient NICOLETTE KAPLAN, RASHAD Albarran [facility] CARD AF,CAD,HTN,HLP [id number] 10/22/2013 10:03:00 2013 23:59:59 CLS Outpatient BETZY MAGDALENO MD [facility] RAD DIARRHEA,ABD PAIN [id number] 06/22/2015 01:20:00 Document Registration [id number] 10/07/2014 07:48:00 Document Registration [id number] 09/25/2012 07:16:00 Document Registration [id number] 09/24/2012 10:02:00 Document Registration [id number] 08/08/2012 09:56:00 Document Registration [id number] 08/04/2011 09:00:00 Document Registration [id number] 05/05/2011 08:31:00 Document Registration [id number] 04/25/2011 08:45:00 Document Registration [id number] 04/09/2011 08:37:00 Document Registration [id number] 04/20/2010 08:17:00 Document Registration
[2017-05-31 18:30] VITALS: BP 128/61
[2017-05-31] MEDS ORDERED: CATHETER FLUSH 10 ML SYR IV PRN (18:45)
[2017-05-31] MEDS: NS IV 1000 ML 1,000 ML IV SCH (18:58)
[2017-05-31 19:35] VITALS: BP 149/66
[2017-05-31] MEDS ORDERED: ACETAMINOPHEN 325 MG TABLET/CAPLET (TYLENOL) ONE (21:50)
[2017-05-31] MEDS: ACETAMINOPHEN 325 MG TABLET/CAPLET (TYLENOL) PO PRN (22:01)
[2017-05-31 22:27] LABS: BILIRUBIN,URINE NEGATIVE (NEGATIVE); KETONES,URINE 2+ (NEGATIVE); LEUKOCYTE ESTERASE ,URINE 1+ (NEGATIVE); NITRITE,URINE NEGATIVE (NEGATIVE); PH,URINE 5 (5-9); PROTEIN,URINE 2+ (NEGATIVE); UROBILINOGEN,URINE NORMAL (NORMAL)
[2017-05-31 23:35] VITALS: BP 128/64
[2017-06-01 04:15] VITALS: BP 120/61
[2017-06-01] MEDS: NS IV 1000 ML 1,000 ML IV SCH ×2 (04:51→15:11)
[2017-06-01 06:21] LABS: BASOPHILS % (AUTO) 0 % (0-10); EOSINOPHILS # (AUTO) 0.1 10^3/uL (0.0-0.3); EOSINOPHILS % (AUTO) 1 % (0-10); LYMPHOCYTES % (AUTO) 22 % (12-44); MEAN CORPUSCULAR HEMOGLOBIN 33 PG (25-34); MEAN CORPUSCULAR HGB CONC 33 G/DL (32-36); MEAN CORPUSCULAR VOLUME 99 FL (80-99); MEAN PLATELET VOLUME 10.2 FL (7.4-10.4); MONOCYTES # (AUTO) 0.4 X 10^3 (0.0-1.0); MONOCYTES % (AUTO) 9 % (0-12); NEUTROPHILS # (AUTO) 3.1 X 10^3 (1.8-7.8); NEUTROPHILS % (AUTO) 67 % (42-75); PLATELET COUNT 133 10^3/uL (130-400); RED BLOOD COUNT 3.25 10^6/uL (4.35-5.85); RED CELL DISTRIBUTION WIDTH 14.2 % (10.0-14.5); WHITE BLOOD COUNT 4.6 10^3/uL (4.3-11.0)
[2017-06-01 06:52] LABS: ALANINE AMINOTRANSFERASE 10 U/L (0-55); ALBUMIN 3.4 GM/DL (3.2-4.5); ANION GAP 9 MMOL/L (5-14); ASPARTATE AMINO TRANSFERASE 18 U/L (5-34); BILIRUBIN,TOTAL 0.6 MG/DL (0.1-1.0); BLOOD UREA NITROGEN 19 MG/DL (7-18); BUN/CREATININE RATIO 18; CALCIUM 8.5 MG/DL (8.5-10.1); CARBON DIOXIDE 19 MMOL/L (21-32); CHLORIDE 108 MMOL/L (98-107); CREATININE SERUM 1.07 MG/DL (0.60-1.30); GFR ESTIMATED > 60; GLUCOSE 87 MG/DL (70-105); POTASSIUM 4.1 MMOL/L (3.6-5.0); SODIUM 136 MMOL/L (135-145); TOTAL PROTEIN 6.3 GM/DL (6.4-8.2)
[2017-06-01] MEDS: ASPIRIN 325 MG (5 GR) TABLET PO SCH (07:54)
[2017-06-01] MEDS: ACETAMINOPHEN 325 MG TABLET/CAPLET (TYLENOL) PO PRN ×2 (07:55→16:43)
[2017-06-01 08:00] VITALS: BP 159/72
[2017-06-01] MEDS ORDERED: TAMS0.4C2 PO (08:27)
[2017-06-01] MEDS ORDERED: MULT-35 PO (08:27)
[2017-06-01] MEDS ORDERED: OMEG-109 PO (08:27)
[2017-06-01] MEDS ORDERED: NFNEB10T PO (08:27)
--- NOTE | 2017-06-01 08:52 | ST Cognitive Linguistic Eval ---
Speech Evaluation-General Medical Diagnosis TIA Onset Date: May 31, 2017 Therapy Diagnosis Therapy Diagnosis: Cognitive Lingiustic Skills WNL Precautions Precautions/Isolations: Fall Prevention, Standard Precautions Referral Referring Physician: Dr. Deepti Palomares Reason for Referral: Evaluation/Treatment Cognitive, Speech, and Language Evaluation Medical History Pertinent Medical History: Atrial Fib, Arthritis, CABG, CAD, HTN Current History The patient arrived at [facility] on 05/31/17 with "garbled speech" and reports of weakness. Reviewed History: Yes Speech PLF-Current Status Prior Level of Function The patient reported he was independent with all communication interactions prior to the TIA. Additionally, the patient and the patient's report the patient's speech and language skills have returned to baseline. Subjective The patient was seated upright in bed upon entrance. The patient greeted the clinician appropriately and was agreeable to participation in the speech and language evaluation. Language Eval: Auditory Comprehends Simple Yes/No Ques: Functional Indent/Objects Multiple [place]: Functional Ident/Pics in Multiple [place]: Functional Follows 1-Step Commands: Functional Follows General Conversations: Functional Language Eval: Verbal Language Completes Spontaneous Greeting: Functional Produces Auto, Serial Info: Functional Imitates Simple Words/Phrases: Functional Word Finding: Functional Requests Basic Needs: Functional States Basic Personal Info: Functional Expresses Complex Ideas: Functional Language Evaluation: Reading Per patient, reading is difficult due to double vision which he had experienced prior to admission. Cognitive Patient Orientation The patient was oriented to month, location, city, and day of week. Objective Cognitive Domain Attention: WNL Memory: WNL Problem Solving: Functional Executive Functions: WNL Objective Impression The patient displayed speech and language skills within normal limits. Per patient and , the patient's speech and language has returned to baseline. Speech-Plan Treatment Plan Speech Therapy Treatment Plan: Discontinue ST Evaluation, only. If signs/symptoms of aphasia return, please reconsult speech pathology. Frequency: 1 time per week (Evaluation, only.) Estimated Hrs Per Day: Other (Evaluation, only.) Rehab Potential: Good Safety Risks/Education Teaching Recipient: Patient, Significant Other Teaching Methods: Discussion Response to Teaching: Verbalize Understanding Education Topics Provided: Results, Recommendations Time Speech Therapy Time In: 08:15 Speech Therapy Time Out: 08:30 Total Billed Time: 15 Billed Treatment Time 1, SPSNDCOMP Speech GCodes Complexity Level Test(s)/Tool Used to Determine: Level of Assistance Scale Functional Limitation-Current Current: JENNIFER Modifier: Functional Limitation-Goal Goal: SPELANGOAL Modifier: Functional Limitation-D/C Discharge: [facility] Modifier: DARRON LEWIS Jun 01, 2017 08:52
[2017-06-01] MEDS ORDERED: methylPREDNISolone 125 MG (Solu-MEDROL) VIAL IM NR (09:15)
--- NOTE | 2017-06-01 09:16 | History & Physicial ---
History of Present Illness History of Present Illness Reason for visit/HPI PT REPORTS THAT HE WAS HAVING SOME ISSUES WITH WEAKNESS OF HIS LEFT ARM/HAND TWICE ON SUNDAY - THIS PROMPTED HIM TO GO TO THE HOSPITAL. HIS REPORTS THAT HE HAD SOME CONFUSION OF HIS SPEECH YESTERDAY IN THE EMERGENCY DEPARTMENT AND HE THEN QUICKLY HAD RESOLUTION OF HIS ABNORMAL SPEECH PATTERNS. HE ALSO HAS REPORTED TO THIS PROVIDER THAT HE HAS SOME "FLOATERS" IN HIS VISION WITH THE FLOATERS TURNING INTO FIGURES THAT HE THINKS ABOUT - SUCH A SPIDERWEB ON THE WALL, THE OUTLINE OF A PERSON, OR A NET AROUND MY HEAD. Date of Admission May 31, 2017 at 17:35 Date Seen by Provider: Jun 01, 2017 Time Seen by Provider: 09:00 Attending Physician Raji Palomares MD Admitting Physician Raji Palomares MD Consult Allergies and Home Medications Allergies Coded Allergies: doxycycline (Verified Allergy, Severe, DIZZINESS/NAUSEA, 06/01/17) hydrocodone (Verified Allergy, Intermediate, DIZZINESS, 06/01/17) loratadine (Verified Adverse Reaction, Intermediate, HEADACHE, 06/22/15) Home Medications Acetaminophen 500 Mg Tablet, 1,000 MG PO Q6H PRN for PAIN-MILD, (Reported) Atorvastatin Calcium 40 Mg Tablet, 40 MG PO HS, (Reported) Cetirizine HCl 10 Mg Tablet, 10 MG PO DAILY, (Reported) Citalopram Hydrobromide 10 Mg Tablet, 15 MG PO DAILY, (Reported) TAKES 1 & 1/2 (10MG) TABLET Enalapril Maleate 2.5 Mg Tablet, 2.5 MG PO BID, (Reported) Finasteride 5 Mg Tablet, 5 MG PO DAILY, (Reported) Multivitamin 1 Each Tablet, 1 TAB PO DAILY, (Reported) Nebivolol HCl 10 Mg Tab, 10 MG PO HS, (Reported) Nitroglycerin 12 Gm [place], 1 SPRAY TL UD PRN for CHEST PAIN, (Reported) [place]-3 Fatty Acids/Fish Oil 1 Each Capsule, 1,200 MG PO BID, (Reported) Rivaroxaban 20 Mg Tablet, 20 MG PO 1800, (Reported) Tamsulosin HCl 0.4 Mg Cap.er.24h, 0.4 MG PO HS, (Reported) Past Mgmzuzi-Ortqbh-Ezmemd Hx Patient Social History Marrital Status: Living Status: LIVES AT HOME WITH SPOUSE Employed/Student: retired Alcohol Use: Denies Use Recreational Drug Use: No Smoking Status: Former Smoker Former Smoker, Quit: Aug 20, 1978 2nd Hand Smoke Exposure: No Physical Abuse Screen: No Sexual Abuse: No Recent Foreign Travel: No Contact w/other who traveled: No Recent Hopitalizations: No Recent Infectious Disease Expo: No Immunizations Up To Date Tetanus Booster (TDap): Unknown Date of Pneumonia Vaccine: May 20, 2013 Date of Influenza Vaccine: May 16, 2017 Seasonal Allergies Seasonal Allergies: Yes Surgeries Yes Abdominal, CABG, Pacemaker, Vascular Surgery Respiratory No Cardiovascular Yes Aneurysm, Atrial Fibrillation, Coronary Artery Disease, Hypertension, Valvular Heart Disease Neurological Yes Headaches /Migraines Reproductive System Hx Reproductive Disorders: No Sexually Transmitted Disease: No HIV/AIDS: No Genitourinary Yes Benign Prostatic Hyperpl Gastrointestinal Yes (FECAL IMPACTION 06/22/15) Chronic Constipation Musculoskeletal Yes Arthritis Endocrine History of Endocrine Disorders: No HEENT History of HEENT Disorders: Yes HEENT Disorders: Cataract Loss of Vision: Denies Hearing Impairment: Denies Cancer No Psychosocial History of Psychiatric Problem: Yes Behavioral Health Disorders: Anxiety Integumentary History of Skin or Integumenta: No Blood Transfusions History of Blood Disorders: No Adverse Reaction to a Blood Tr: No Reviewed Nursing Assessment Reviewed/Agree w Nursing PMH: Yes Family Medical History Significant Family History: Heart Disease, Cancer, Hypertension, Stroke Family Hx: FH: lung cancer G8 BROTHER FH: stroke 19 FATHER Myocardial infarction 19 FATHER G8 SISTER Constitutional: No chills, No diaphoresis, No fever, malaise, No weakness EENTM: hearing loss, blurred vision (WITH "FLOATERS") Respiratory: No cough, No dyspnea on exertion, No short of breath Cardiovascular: Hx of Intervention, No palpitations, No syncope Gastrointestinal: No abdominal pain, No constipation, No diarrhea Genitourinary: no symptoms reported, No decreased output, frequency Musculoskeletal: back pain, No muscle weakness Skin: other (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 - TENDER TO PALPATION OVER THOSE SITES) Psychiatric/Neurological: Denies Anxiety, Denies Depressed, Weakness All Other Systems Reviewed Negative Unless Noted: Yes Physical Exam Vital Signs Vital Sign - Last 12Hours 05/31/17 16:12 Temp 98.2 Pulse 76 Resp 18 B/P (MAP) 163/76 Pulse Ox 98 O2 Delivery Room Air Capillary Refill : Less Than 3 Seconds General Appearance: No Apparent Distress, WD/WN Eyes: Bilateral Eye Normal Inspection, Bilateral Eye PERRL, Bilateral Eye EOMI HEENT: PERRL/EOMI, Pharynx Normal, Other (TTP OVER RIGHT ADVENTISM) Neck: Full Range of Motion, Supple Respiratory: Chest Non Tender, Lungs Clear, Normal Breath Sounds, No Accessory Muscle Use Cardiovascular: Regular Rate, Rhythm, Systolic Murmur (II/) Gastrointestinal: Normal Bowel Sounds, No Organomegaly, No Pulsatile Mass, Non Tender, Soft Rectal: Deferred Back: Normal Inspection Extremity: Normal Capillary Refill, Non Tender, No Pedal Edema Neurologic/Psychiatric: Alert, Oriented x3, No Motor/Sensory Deficits, Normal Mood/Affect, computer systems manager II-XII Norm as Tested Skin: Normal Color, Warm/Dry, No Diaphoresis, No Ecchymosis, No Erythema, No Jaundice, No Mottled Lymphatic: No Adenopathy Assessment/Plan Assessment and Plan HEADACHE VISION CHANGES TIA HX OF AORTIC ANEURYSM HYPERTENSION CHRONIC ANTICOAGULATION HEADACHE WITH VISION CHANGES - HX OF MIGRAINE HEADACHES - REPEAT CT OF HEAD WITH CONTRAST DID NOT SHOW THAT HE HAD A RECENT STROKE - PT IS UNABLE TO UNDERGO AN MRI - WILL CONTINUE WITH FLUIDS, WATCH PT OVERNIGHT, IF NO REPEAT SYMPTOMS, WILL THEN RELEASE TO HOME. CRP AND ESR WERE NEGATIVE - THEREFORE POSSIBILITY OF TEMPORAL ARTERITIS IS RULED OUT. TIA - LIKELY - WILL KEEP PT ON XARELTO, ADD LOW DOSE ASPIRIN DAILY TO REGIMEN ON DISCHARGE. HX OF AORTIC ANEURYSM - PT IS STATUS POST REPAIR - CONTINUE CHRONIC ANTICOAGULATION PER DR. BAKER. HYPERTENSION - RESUME HOME MEDICATION. HYPERLIPIDEMIA - RESUME HOME MEDICATION. CHRONIC ANTICOAGULATION - RESUMED XARELTO LAST NIGHT. Problems: Admission Diagnosis HEADACHE VISION CHANGES TIA HX OF AORTIC ANEURYSM HYPERTENSION CHRONIC ANTICOAGULATION Clinical Quality Measures DVT/VTE Risk/Contraindication: Risk Factor Score Per Nursin RFS Level Per Nursing on Admit: 4+=Very High RAJI PALOMARES MD Jun 01, 2017 09:16
[2017-06-01] MEDS ORDERED: ACET-2267 PO (09:22)
--- NOTE | 2017-06-01 10:26 | Diagnostic Imaging Report ---
PROCEDURE: US Carotid Duplex Bilateral. TECHNIQUE: Multiple real-time grayscale images were obtained over the carotid arteries in various projections bilaterally. Additional duplex Doppler and color Doppler images were also obtained. INDICATION: TIA FINDINGS: Grayscale images demonstrate mild atherosclerotic plaque along the carotid bifurcations bilaterally. The color Doppler demonstrates patency of the left common, internal and external carotid arteries and the common and internal carotid arteries on the right side. The external carotid artery on the right side is not seen suggestive of occlusion. The vertebral arteries demonstrate antegrade flow bilaterally. Peak systolic velocities in the right ICA are 111, 114 and 120 cm/s from proximal to distal and on the left are 74, and 94 and 152 cm/s. ICA versus a ratios are to one point the 7 on the right and up to 1.7 and the left. IMPRESSION: 1. The velocities are minimally elevated and the internal carotid artery is more on the left side without significant suggested stenosis. Estimated underlying stenosis is less than 50% bilaterally. 2. The right external carotid artery is not visualized suggestive of occlusion. Dictated by: Dictated on workstation # [id number]
[2017-06-01] MEDS ORDERED: NS 100 ML (IVPB) BAG IV ONE (10:45)
[2017-06-01] MEDS ORDERED: IOHEXOL 350 MG/ML 100 ML (OMNIPAQUE 350) VIAL IV ONE (10:45)
[2017-06-01 12:00] VITALS: BP 145/68
--- NOTE | 2017-06-01 14:56 | Diagnostic Imaging Report ---
PROCEDURE: CT head with contrast. TECHNIQUE: Multiple contiguous axial images were obtained through the brain after the administration of intravenous contrast. INDICATION: Headache. COMPARISON: Noncontrast CT head 05/31/2017. FINDINGS: No space-occupying mass or pathologic enhancement. No large central arterial occlusion. Sau[place]a-white matter differentiation is preserved. No hydrocephalus or midline shift. Age-appropriate atrophy. No acute calvarial abnormality. Paranasal sinuses and mastoid air cells are clear. Visualized orbits are unremarkable. IMPRESSION: 1. No acute intracranial process by postcontrast imaging. Dictated by: Dictated on workstation # [id number]
[2017-06-01] MEDS ORDERED: ASPI-983 PO (15:31)
[2017-06-01 16:29] VITALS: BP 131/60
[2017-06-01] MEDS ORDERED: RIVAROXABAN 20 MG TABLET (XARELTO) PO SCH (17:00)
[2017-06-01 20:00] VITALS: BP 141/65
[2017-06-02] VITALS: BP 156/74
[2017-06-02] MEDS: ACETAMINOPHEN 325 MG TABLET/CAPLET (TYLENOL) PO PRN (00:56)
[2017-06-02] MEDS: NS IV 1000 ML 1,000 ML IV SCH ×2 (01:19→10:45)
[2017-06-02 04:00] VITALS: BP 146/68
[2017-06-02 08:00] VITALS: BP 150/66
[2017-06-02] MEDS: ASPIRIN 325 MG (5 GR) TABLET PO SCH (09:01)
[2017-06-02] MEDS ORDERED: ACETAMINOPHEN 500 MG TAB (TYLENOL) PO PRN (11:30)
[2017-06-02] MEDS ORDERED: NITROGLYCERIN TL PRN (11:30)
--- NOTE | 2017-06-02 13:25 | Discharge Summary-Hospitalist ---
Diagnosis/Chief Complaint Date of Admission May 31, 2017 at 18:20 Date of Discharge Discharge Date: Jun 02, 2017 Discharge Diagnosis (1) TIA (transient ischemic attack) Status: Resolved Assessment & Plan: ASA 81mg daily (2) Hallucinations Status: Resolved (3) Hypertension Status: Chronic Discharge Summary Discharge Physical Examination Allergies: Coded Allergies: doxycycline (Verified Allergy, Severe, DIZZINESS/NAUSEA, 06/01/17) hydrocodone (Verified Allergy, Intermediate, DIZZINESS, 06/01/17) loratadine (Verified Adverse Reaction, Intermediate, HEADACHE, 06/22/15) Vitals & I&Os Vital Signs Date Time Temp Pulse Resp B/P (MAP) Pulse Ox O2 Delivery O2 Flow Rate FiO2 06/02/17 08:00 Room Air 06/02/17 08:00 99.3 79 20 150/66 97 Hospital Course 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 Pt is aware that he is seeing things Pt has a Pt has showered and ate breakfast Pt would like BP meds. Patient Interview: Pt states he is doing well and ready to go. DC was discussed Issues that might occur after his mini-stroke/TIA were discussed Pt states Dr. Palomares is okay with DC today Pt states that the steroid shot he was given stopped his pain and he wondered if he could have it again. I informed him that buttermaker helper use can have risks and this was discussed, Tylenol was suggested for further pain issues. Pt was advised to talk to Dr. Palomares for further pain management. Pt was assured that the steroid's benefits will last for awhile yet. Physical exam stable. Lungs sound perfect Pt confirms eating breakfast Pt asked my opinion one whether he should have his teeth pulled and I informed him that he will need to discuss this with Dr. Palomares Pt also asked when he could drive, I informed him that this will also need to be discussed with Dr. Palomares AFVSS, Ple[place], sitting in bed, at bedside, O x 3 RRR, CTAB No edema Assessment: TIA HTN Hallucinations? Plan: Follow up with Dr. Palomares next week No driving until ok with PCP ASA at [place] Scribed by Cassidy Gonzalez under the direct supervision of Dr. Zamora. Discharge Home Medications: Active Scripts Active Aspirin EC (Aspirin) 81 Mg Tablet. 81 Mg PO DAILY 30 Days Reported Tylenol Extra Strength (Acetaminophen) 500 Mg Tablet 1,000 Mg PO Q6H PRN Bystolic (Nebivolol HCl) 10 Mg Tab 10 Mg PO HS Tamsulosin HCl 0.4 Mg Cap.er.24h 0.4 Mg PO HS Fish Oil 1,200 mg Softgel ([place]-3 Fatty Acids/Fish Oil) 1 Each Capsule 1,200 Mg PO BID Daily Multiple Vitamin (Multivitamin) 1 Each Tablet 1 Tab PO DAILY Nitrolingual (Nitroglycerin) 12 Gm [place] 1 [place] TL UD PRN Zyrtec (Cetirizine HCl) 10 Mg Tablet 10 Mg PO DAILY Finasteride 5 Mg Tablet 5 Mg PO DAILY Citalopram HBr (Citalopram Hydrobromide) 10 Mg Tablet 15 Mg PO DAILY TAKES 1 & 1/2 (10MG) TABLET Atorvastatin Calcium 40 Mg Tablet 40 Mg PO HS Enalapril Maleate 2.5 Mg Tablet 2.5 Mg PO BID Xarelto (Rivaroxaban) 20 Mg Tablet 20 Mg PO 1800 Instructions to patient/family Please see electronic discharge instructions given to patient. Clinical Quality Measures DVT/VTE Risk/Contraindication: Risk Factor Score Per Nursin RFS Level Per Nursing on Admit: 4+=Very High Problem Qualifiers (1) TIA (transient ischemic attack): Transient cerebral ischemia type: unspecified Qualified Codes: G45.9 - Transient cerebral ischemic attack, unspecified (2) Hypertension: Hypertension type: essential hypertension Qualified Codes: I10 - Essential ( primary) hypertension PLACIDO ZAMORA DO Jun 02, 2017 13:25
[2017-06-02] MEDS ORDERED: RIVAROXABAN 20 MG TABLET (XARELTO) PO SCH (18:00)
[2017-06-02] MEDS ORDERED: NON-FORMULARY MEDICATION 1 EA EA (Omega-3 Fatty Acids/Fish Oil (Fish Oil 1,200 mg Softgel) PO SCH (21:00)
[2017-06-02] MEDS ORDERED: NON-FORMULARY MEDICATION 1 EA EA (Nebivolol HCl (Bystolic) 10 MG) PO SCH (21:00)
[2017-06-02] MEDS ORDERED: ATORVASTATIN 40 MG (LIPITOR) TABLET PO SCH (21:00)
[2017-06-02] MEDS ORDERED: ENALAPRIL 2.5 MG (VASOTEC) TAB PO SCH (21:00)
[2017-06-02] MEDS ORDERED: NON-FORMULARY MEDICATION 1 EA EA (Tamsulosin HCl 0.4 MG) PO SCH (21:00)
[2017-06-03] MEDS ORDERED: NON-FORMULARY MEDICATION 1 EA EA (Finasteride 5 MG) PO SCH (09:00)
[2017-06-03] MEDS ORDERED: NON-FORMULARY MEDICATION 1 EA EA (Cetirizine HCl (Zyrtec) 10 MG) PO SCH (09:00)
[2017-06-03] MEDS ORDERED: NON-FORMULARY MEDICATION 1 EA EA (Multivitamin (Daily Multiple Vitamin) 1 TAB) PO SCH (09:00)
== END 2017-06-02 12:36 | disposition home or self-care (01) ==
LOC: EDUNIT# 16:06 → ER 16:08 → UNDOADMOB 17:35 → 4TH 17:35
PROVIDERS: ADMIT Family Medicine; ATTEND Family Medicine
DX: G45.9 Transient cerebral ischemic attack, unspecified (principal); H53.9 Unspecified visual disturbance; I51.7 Cardiomegaly; I25.10 Atherosclerotic heart disease of native coronary artery without angina pectoris; I48.2 Chronic atrial fibrillation; I10 Essential (primary) hypertension; E78.5 Hyperlipidemia, unspecified; Z79.82 Long term (current) use of aspirin; Z79.01 Long term (current) use of anticoagulants; Z79.899 Other long term (current) drug therapy; Z95.0 Presence of cardiac pacemaker; Z95.1 Presence of aortocoronary bypass graft; Z86.79 Personal history of other diseases of the circulatory system
CPT/HCPCS: 36415; 70450; 70460; 71010; 80053; 81000; 84484; 85025; 85379; 85610; 85652; 85730; 86141; 93005; 93041; 93880; 96360; G0378

== ENCOUNTER 2017-06-09 13:19 | Emergency (ER) | payer MEDICARE, OTHER ==
[~2017-06-09] VITALS: Ht 185.4 cm; Wt 76.2 kg
[~2017-06-09 13:19] MED LIST changes: +ACET-2267 PO; +MULT-35 PO; +NFNEB10T PO; +OMEG-109 PO
[2017-06-09] MEDS ORDERED: fentaNYL INJECTION 100 MCG/2 ML AMP ONE (13:36)
[2017-06-09] MEDS ORDERED: ONDANSETRON 4 MG/2 ML (SDV) Z0FRAN ONE (13:45)
[2017-06-09 13:54] LABS: BASOPHILS % (AUTO) 0 % (0-10); EOSINOPHILS % (AUTO) 0 % (0-10); LYMPHOCYTES # (AUTO) 1.5 X 10^3 (1.0-4.0); LYMPHOCYTES % (AUTO) 21 % (12-44); MEAN CORPUSCULAR HEMOGLOBIN 32 PG (25-34); MEAN CORPUSCULAR HGB CONC 33 G/DL (32-36); MEAN CORPUSCULAR VOLUME 99 FL (80-99); MEAN PLATELET VOLUME 9.9 FL (7.4-10.4); MONOCYTES # (AUTO) 0.7 X 10^3 (0.0-1.0); MONOCYTES % (AUTO) 10 % (0-12); NEUTROPHILS % (AUTO) 68 % (42-75); PLATELET COUNT 192 10^3/uL (130-400); RED BLOOD COUNT 3.68 10^6/uL (4.35-5.85); RED CELL DISTRIBUTION WIDTH 14.3 % (10.0-14.5); WHITE BLOOD COUNT 7.2 10^3/uL (4.3-11.0)
--- NOTE | 2017-06-09 13:57 | ED Neurological Problem ---
General Chief Complaint: Neuro-Stroke Like Symptoms Stated Complaint: MIGRANE Source: patient Exam Limitations: no limitations (AARON ALTMAN APRN) History of Present Illness Time seen by provider: 13:53 Initial Comments To ER accompanied by his with reports of "the worst headache ever". This began this morning at just after 1030 a.m. At 1030 a.m. and the patient both report that he began dropping things with both hands and both upper extremities were very weak but there was no one side was weaker than the other. Just after the weakness he developed a severe headache also states that he was confused. She called a friend to bring him to the hospital and he asked who they were when she states he should've known who the person was. She also states that he kind of gave her a blank stare after she would say something to him but he wouldn't respond to her as he typically does. The bilateral weakness has improved, his speech has returned and is clear and appropriate in the confusion seems gone at this time. His only complaint is of severe headache. He states that he was recently treated with steroids for his headaches and that it did improve his symptoms but he finished them about 3 or 4 days ago. He is also on aspirin and Xarelto Timing/Duration: 1 week Associated Symptoms: confusion (AARON ALTMAN APRN) Allergies and Home Medications Allergies Coded Allergies: doxycycline (Verified Allergy, Severe, DIZZINESS/NAUSEA, 06/01/17) hydrocodone (Verified Allergy, Intermediate, DIZZINESS, 06/01/17) loratadine (Verified Adverse Reaction, Intermediate, HEADACHE, 06/22/15) Home Medications Acetaminophen 500 Mg Tablet, 1,000 MG PO Q6H PRN for PAIN-MILD, (Reported) Alprazolam 0.5 Mg Tablet, (Reported) Aspirin 81 Mg Tablet., 81 MG PO DAILY for 30 Days, #30 Ref 3 Prescribed by: RAJI CHAWLA on 06/01/17 1531 Atorvastatin Calcium 40 Mg Tablet, 40 MG PO HS, (Reported) Cetirizine HCl 10 Mg Tablet, 10 MG PO DAILY, (Reported) Citalopram Hydrobromide 10 Mg Tablet, 15 MG PO DAILY, (Reported) TAKES 1 & 1/2 (10MG) TABLET Enalapril Maleate 2.5 Mg Tablet, 2.5 MG PO BID, (Reported) Finasteride 5 Mg Tablet, 5 MG PO DAILY, (Reported) Multivitamin 1 Each Tablet, 1 TAB PO DAILY, (Reported) Nebivolol HCl 10 Mg Tab, 10 MG PO HS, (Reported) Nitroglycerin 12 Gm [place], 1 SPRAY TL UD PRN for CHEST PAIN, (Reported) Minter-3 Fatty Acids/Fish Oil 1 Each Capsule, 1,200 MG PO BID, (Reported) Rivaroxaban 20 Mg Tablet, 20 MG PO 1800, (Reported) Tamsulosin HCl 0.4 Mg Cap.er.24h, 0.4 MG PO HS, (Reported) Tramadol HCl 50 Mg Tablet, (Reported) Constitutional: see HPI Eyes: No Symptoms Reported Ears, Nose, Mouth, Throat: no symptoms reported Respiratory: no symptoms reported Cardiovascular: no symptoms reported Genitourinary: no symptoms reported Musculoskeletal: no symptoms reported Skin: no symptoms reported Psychiatric/Neurological: See HPI, Cognitive Dysfunction, Headache (AARON ALTMAN APRN) Past Jqcubxp-Xqasut-Rfvrvw Hx Patient Social History Former Smoker, Quit: Aug 20, 1978 2nd Hand Smoke Exposure: No Recent Foreign Travel: No Contact w/Someone Who Travel: No Recent Hopitalizations: No (AARON ALTMAN APRN) Immunizations Up To Date Tetanus Booster (TDap): Unknown Date of Pneumonia Vaccine: May 20, 2013 Date of Influenza Vaccine: May 16, 2017 (AARON ALTMAN APRN) Seasonal Allergies Seasonal Allergies: Yes (AARON ALTMAN APRN) Surgeries History of Surgeries: Yes Surgeries: Abdominal, CABG, Pacemaker, Vascular Surgery (AARON ALTMAN APRN) Respiratory History of Respiratory Disorde: No (AARON ALTMAN APRN) Cardiovascular History of Cardiac Disorders: Yes Cardiac Disorders: Aneurysm, Atrial Fibrillation, Coronary Artery Disease, Hypertension, Valvular Heart Disease (AARON ALTMAN APRN) Neurological History of Neurological Disord: Yes Neurological Disorders: Headaches /Migraines (AARON ALTMAN APRN) Reproductive System Hx Reproductive Disorders: No Sexually Transmitted Disease: No HIV/AIDS: No (AARON ALTMAN APRN) Genitourinary History of Genitourinary Disor: Yes Genitourinary Disorders: Benign Prostatic Hyperpl (AARON ALTMAN APRN) Gastrointestinal History of Gastrointestinal Di: Yes (FECAL IMPACTION 06/22/15) Gastrointestinal Disorders: Chronic Constipation (AARON ALTMAN APRN) Musculoskeletal History of Musculoskeletal Dis: Yes Musculoskeletal Disorders: Arthritis (AARON ALTMAN APRN) Endocrine History of Endocrine Disorders: No (AARON ALTMAN APRN) HEENT History of HEENT Disorders: Yes HEENT Disorders: Cataract Loss of Vision: Denies Hearing Impairment: Denies (AARON ALTMAN APRN) Cancer History of Cancer: No (AARON ALTMAN APRN) Psychosocial History of Psychiatric Problem: Yes Behavioral Health Disorders: Anxiety (AARON ALTMAN APRN) Integumentary History of Skin or Integumenta: No (AARON ALTMAN APRN) Blood Transfusions History of Blood Disorders: No Adverse Reaction to a Blood Tr: No (AARON ALTMAN APRN) Family Medical History Significant Family History: Heart Disease, Cancer, Hypertension, Stroke Family Medial History: FH: lung cancer G8 BROTHER FH: stroke 19 FATHER Myocardial infarction 19 FATHER G8 SISTER (AARON ALTMAN APRN) Family Medial History: FH: lung cancer G8 BROTHER FH: stroke 19 FATHER Myocardial infarction 19 FATHER G8 SISTER (ABHI MOCK MD) Physical Exam Vital Signs Vital Sign - Last 12Hours 06/09/17 13:45 Temp 97.9 Pulse 72 Resp 18 B/P (MAP) 139/85 Pulse Ox 97 (ABHI MOCK MD) Vital Signs Capillary Refill : (AARON ALTMAN APRN) General Appearance: WD/WN, no apparent distress, other (very talkative and well -appearing without any neurologic deficits. His initial NIH stroke scale score is 0.) HEENT: PERRL/EOMI, normal ENT inspection, TMs normal Neck: non-tender, full range of motion Respiratory: normal breath sounds, no respiratory distress, no accessory muscle use Cardiovascular: regular rate, rhythm, no murmur Gastrointestinal: normal bowel sounds, non tender, soft Extremities: normal range of motion, non-tender, other (fisher dip net and strength are equal and both upper extremities. Strength is equal in both lower 20s. No drift.) Neurologic/Psychiatric: alert, normal mood/affect, oriented x 3 Crainal Nerves: normal hearing, normal speech, PERRL Skin: normal color, warm/dry (AARON ALTMAN APRN) Stroke Onset of Symptoms Date of Onset of Symptoms: Jun 09, 2017 Time of Symptom Onset: 10:30 Onset of Symptoms: Yes (AARON ALTMAN APRN) NIH Stroke Scale Assessment Select: Initial Level of Consciousness: 0=Alert (0), Level of Consciousness- Questions: 0=Answers both month/age (0), LOC Commands: 0=Performs both tasks (0) , Visual [place]berg: 0=No visual loss (0), Facial Movement (Facial Paresis): 0= Normal symmetrical mnt (0), Motor Function-Arms Right: 0=No drift (0), Motor Function-Arms Left: 0=No drift (0), Motor Function-Legs Right: 0=No drift (0), Motor Function-Legs Left: 0=No drift (0), Limb Ataxia: 0=Absent (0), Sensory: 0= Normal:no loss (0), Best Language: 0=No aphasia (0), Dysarthria: 0=Normal (0), Extinction & Inattention: 0=No abnormality (0), Total: 0 Stroke Thrombolytic Exclusion Age 18 or Over: Yes (AARON ALTMAN APRN) Progress/Results/Core Measures Results/Orders Lab Results Laboratory Tests Test 06/09/17 13:45 06/09/17 14:15 06/09/17 14:40 06/09/17 14:54 Range/Units White Blood Count 7.2 4.3-11.0 10^3/uL Red Blood Count 3.68 L 4.35-5.85 10^6/uL Hemoglobin 11.9 L 13.3-17.7 G/DL Hematocrit 36 L 40-54 % Mean Corpuscular Volume 99 80-99 FL Mean Corpuscular Hemoglobin 32 25-34 PG Mean Corpuscular Hemoglobin Concent 33 32-36 G/DL Red Cell Distribution Width 14.3 10.0-14.5 % Platelet Count 192 130-400 10^3/uL Mean Platelet Volume 9.9 7.4-10.4 FL Neutrophils (%) (Auto) 68 42-75 % Lymphocytes (%) (Auto) 21 12-44 % Monocytes (%) (Auto) 10 0-12 % Eosinophils (%) (Auto) 0 0-10 % Basophils (%) (Auto) 0 0-10 % Neutrophils # (Auto) 5.0 1.8-7.8 X 10^3 Lymphocytes # (Auto) 1.5 1.0-4.0 X 10^3 Monocytes # (Auto) 0.7 0.0-1.0 X 10^3 Eosinophils # (Auto) 0.0 0.0-0.3 10^3/uL Basophils # (Auto) 0.0 0.0-0.1 10^3/uL Prothrombin Time 18.1 H 12.2-14.7 SEC INR Comment 1.5 H 0.8-1.4 Activated Partial Thromboplast Time 30 24-35 SEC Sodium Level 134 L 135-145 MMOL/L Potassium Level 4.6 3.6-5.0 MMOL/L Chloride Level 102 98-107 MMOL/L Carbon Dioxide Level 27 21-32 MMOL/L Anion Gap 5 5-14 MMOL/L Blood Urea Nitrogen 14 7-18 MG/DL Creatinine 0.97 0.60-1.30 MG/DL Estimat Glomerular Filtration Rate > 60 BUN/Creatinine Ratio 14 Glucose Level 102 70-105 MG/DL Calcium Level 8.8 8.5-10.1 MG/DL Magnesium Level 1.6 L 1.8-2.4 MG/DL Total Bilirubin 0.8 0.1-1.0 MG/DL Aspartate Amino Transf (AST/SGOT) 14 5-34 U/L Alanine Aminotransferase (ALT/SGPT) 13 0-55 U/L Alkaline Phosphatase 59 40-136 U/L C-Reactive Protein High Sensitivity 0.03 0.00-0.50 MG/DL Total Protein 6.8 6.4-8.2 GM/DL Albumin 3.7 3.2-4.5 GM/DL Urine Color YELLOW Urine Clarity CLEAR Urine pH 5 5-9 Urine Specific [place] 1.005 L 1.016-1.022 Urine Protein 1+ H NEGATIVE Urine Glucose (UA) NEGATIVE NEGATIVE Urine Ketones 1+ H NEGATIVE Urine Nitrite NEGATIVE NEGATIVE Urine Bilirubin NEGATIVE NEGATIVE Urine Urobilinogen NORMAL NORMAL MG/DL Urine Leukocyte Esterase NEGATIVE NEGATIVE Urine RBC (Auto) 1+ H NEGATIVE Urine RBC NONE /HPF Urine WBC NONE /HPF Urine Squamous Epithelial Cells RARE /HPF Urine Crystals NONE /LPF Urine Bacteria NEGATIVE /HPF Urine Casts NONE /LPF Urine Mucus NEGATIVE /LPF Urine Culture Indicated NO (ABHI MOCK MD) Medications Given in ED Current Medications Medications Dose Ordered Sig/Neli Route Start Time Stop Time Status Last Admin Dose Admin Fentanyl Citrate 100 mcg STK-MED ONCE .ROUTE 10/21/17 13:36 06/09/17 13:45 DC 06/09/17 13:45 100 MCG Iohexol 100 ml ONCE ONCE IV 06/09/17 14:00 06/09/17 14:01 DC 06/09/17 14:10 100 ML Ketorolac Tromethamine 15 mg ONCE ONCE IVP 06/09/17 14:30 06/09/17 14:31 DC 06/09/17 14:28 15 MG Ondansetron HCl 8 mg ONCE ONCE IVP 06/09/17 14:00 06/09/17 14:01 DC 06/09/17 13:55 8 MG Sodium Chloride 100 ml ONCE ONCE IV 06/09/17 14:00 06/09/17 14:01 DC 06/09/17 14:10 80 ML Tetracaine HCl 4 ml STK-MED ONCE .ROUTE 06/09/17 14:20 06/09/17 14:28 DC 06/09/17 14:28 4 ML (ABHI MOCK MD) Vital Signs/I&O Vital Sign - Last 12Hours 06/09/17 13:45 Temp 97.9 Pulse 72 Resp 18 B/P (MAP) 139/85 Pulse Ox 97 (ABHI MOCK MD) Progress Note : Progress Note I have seen and evaluated the patient with Aaron Altman APRN. I have reviewed the data from this visit as well as from the previous visit when I admitted him for similar symptoms. CT is do not indicate any stroke. This is likely TIA although there is a component of migraine as well. He does have abnormality of the mediastinum that can be evaluated as outpatient. We will give 10 mg of Decadron IV prior to discharge. Patient states he would like to go home. Discharged home with return precautions. Patient verbalize understanding instructions and agreement with plan. (ABHI MOCK MD) Diagnostic Imaging Diagonstic Imaging: CT Comments NAME: VISHAL MILLER Lakshmi MED REC#: [id number] PT STATUS: REG ER : 1930 PHYSICIAN: AARON ALTMAN APRN ADMIT DATE: 06/09/17/ER Draft Date of Exam:06/09/17 CT HEAD WO PROCEDURE: CT head without contrast. TECHNIQUE: Multiple contiguous axial images were obtained through the brain without the use of intravenous contrast. INDICATION: Migraine. FINDINGS: There is no mass, shift of the midline or hemorrhage to suggest an acute intracranial abnormality. 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 These findings are similar to the prior exam of 06/01/17. The cortical atrophy and the periventricular encephalomalacia seen on the previous study are again evident and no different. There is no sign of an asymmetric hyperdense vessel. The bone window shows no evidence for fracture or for a destructive lesion. The orbits are symmetrical and within normal limits. The sinuses are generally clear. IMPRESSION: 1. There is no evidence for acute intracranial abnormality. When compared to the prior study, there has been no significant change. 2. If clinical concern regarding an underlying abnormality persists, a short-term (24 hour) followup CT head exam would be recommended. The patient does have a pacemaker in place and this would preclude further evaluation by MRI. Dictated on workstation # [id number] Dict: 06/09/17 1411 Trans: 06/09/17 1419 [facility] [id number] Interpreted by: ILENE GOOD MD Electronically signed by: MED REC#: [id number] PT STATUS: REG ER : 1930 PHYSICIAN: AARON ALTMAN APRN ADMIT DATE: 06/09/17/ER Draft Date of Exam:06/09/17 CT ANGIO HEAD/NECK PROCEDURE: CT angiography of the head and CT angiography of the neck with and without contrast. TECHNIQUE: Contiguous noncontrast images were obtained from the skull base through the vertex. After intravenous contrast administration, helical CT angiography of the neck was performed. Source data was reformatted into multiple MIP projections. Delayed post contrast acquisition was also obtained. INDICATION: Migraine. FINDINGS: The CT head exam performed earlier today failed to show any sign of an acute intracranial abnormality. On this study, there is no defect within the intracranial arterial system to suggest a thrombus. There is no sign of an aneurysm of the [place] of [place] either. The vertebrobasilar system is generally unremarkable. The right vertebral artery is dominant. The images through the neck failed to show any sign of a hemodynamically significant stenosis of the common or internal carotid arteries. 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 There is blood flow within the vessel, however. There is no mass or adenopathy involving the neck. The jugular vein is quite prominent on the right. This is most likely a developmental variant. The images through the lung apices do show pleural thickening bilaterally. However, there is an asymmetric pleural-based density along the superior mediastinum on the right. This density measures approximately 1.3 x 1.6 cm. This could be neoplastic in nature. Unless there are previous CT chest examinations available to demonstrate that this finding is stable, then CT of the chest would be recommended for further evaluation. The bone window show no evidence for a fracture or for destructive lesion. IMPRESSION: 1. There is no defect within the intracranial arterial system to suggest a thrombus. There is no sign of an aneurysm of the [place] either. 2. 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 3. The vertebral arteries are opacified and the right vertebral artery is dominant. 4. The parenchymal density adjacent to the superior mediastinum on the right is of uncertain etiology. This could be neoplastic in nature, however. Recommendations as above. These results will be discussed with Aaron Altman APRN. Dictated on workstation # [id number] Dict: 06/09/17 1421 Trans: 06/09/17 1442 [id number] Interpreted by: ILENE GOOD MD Electronically signed by: (AARON ALTMAN APRN) Departure Communication (Admissions) Progress Notes 1435-patient is very talkative and smiling and interactive with staff. When he is speaking he doesn't appear to be in much pain. I feel that anxiety is at least contributing to his headache. I did check intraocular pressures. Right is 17mmHg, left is 18mmHg so I'm not worried about glaucoma. His sedimentation rate and CRP were both normal last week and I would presume them to remain normal this week so temporal arteritis appears to be out of the question. He states that this time his headache has moved to the back of his head.. (AARON ALTMAN APRN) Impression Impression: Primary Impression: Headache Additional Impression: Mediastinal Incidentaloma Disposition: HOME, SELF-CARE Condition: Stable Departure-Patient Inst. Decision time for Depature: 16:17 (AARON ALTMAN APRN) Referrals: RAJI CHAWLA MD (PCP/Family) Primary Care Physician Patient Instructions: Headache, Adult (DC) Add. Discharge Instructions: 1. Follow-up with Dr. Chawla later this week 2. Return to ER for any concerns All discharge instructions reviewed with patient and/or family. Voiced understanding. Copy Copies To 1: RAJI CHAWLA MD, PETER J APRN Jun 09, 2017 13:57 ABHI MOCK MD Jun 09, 2017 16:26
[2017-06-09] MEDS ORDERED: ONDANSETRON 4 MG/2 ML (SDV) Z0FRAN IVP ONE (14:00)
[2017-06-09] MEDS ORDERED: IOHEXOL 350 MG/ML 100 ML (OMNIPAQUE 350) VIAL IV ONE (14:00)
[2017-06-09] MEDS ORDERED: NS 100 ML (IVPB) BAG IV ONE (14:00)
--- NOTE | 2017-06-09 14:19 | Diagnostic Imaging Report ---
PROCEDURE: CT head without contrast. TECHNIQUE: Multiple contiguous axial images were obtained through the brain without the use of intravenous contrast. INDICATION: Migraine. FINDINGS: There is no mass, shift of the midline or hemorrhage to suggest an acute intracranial abnormality. 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 These findings are similar to the prior exam of 06/01/17. The cortical atrophy and the periventricular encephalomalacia seen on the previous study are again evident and no different. There is no sign of an asymmetric hyperdense vessel. The bone window shows no evidence for fracture or for a destructive lesion. The orbits are symmetrical and within normal limits. The sinuses are generally clear. IMPRESSION: 1. There is no evidence for acute intracranial abnormality. When compared to the prior study, there has been no significant change. 2. If clinical concern regarding an underlying abnormality persists, a short-term (24 hour) followup CT head exam would be recommended. The patient does have a pacemaker in place and this would preclude further evaluation by MRI. Dictated by: Dictated on workstation # [id number]
[2017-06-09] MEDS ORDERED: TETRACAINE 0.5% OPHTH SOLN 4 ML BTL (SINGLE DOSE ONLY) ONE (14:20)
[2017-06-09] MEDS: NS IV 500 ML 500 ML IV SCH ×2 (14:28→14:41)
--- NOTE | 2017-06-09 14:29 | Diagnostic Imaging Report ---
INDICATION: Weakness and nausea. Stroke-like symptoms. COMPARISON: 05/31/2017 FINDINGS: Upright portable view of the chest is obtained. Pacer device in the left chest is stable. Postoperative changes in the mediastinum from prior CABG are again noted. Heart size is moderately enlarged but unchanged. There is no central venous congestion. No pneumothorax or pleural fluid suspected. There are chronic findings of COPD. The lungs are otherwise clear. IMPRESSION: Stable cardiomegaly without evidence of failure. No new or acute abnormality is seen when compared to the prior exam. Dictated by: Dictated on workstation # [id number]
[2017-06-09] MEDS ORDERED: KETOROLAC 30 MG/ML VIAL IVP ONE (14:30)
[2017-06-09 14:35] LABS: INR 1.5 (0.8-1.4); PROTHROMBIN TIME PATIENT 18.1 SEC (12.2-14.7)
[2017-06-09] MEDS ORDERED: ALPR0.5T7 (14:35)
[2017-06-09] MEDS ORDERED: TRAM50TA2 (14:35)
--- NOTE | 2017-06-09 14:42 | Diagnostic Imaging Report ---
PROCEDURE: CT angiography of the head and CT angiography of the neck with and without contrast. TECHNIQUE: Contiguous noncontrast images were obtained from the skull base through the vertex. After intravenous contrast administration, helical CT angiography of the neck was performed. Source data was reformatted into multiple MIP projections. Delayed post contrast acquisition was also obtained. INDICATION: Migraine. FINDINGS: The CT head exam performed earlier today failed to show any sign of an acute intracranial abnormality. On this study, there is no defect within the intracranial arterial system to suggest a thrombus. There is no sign of an aneurysm of the [place] either. The vertebrobasilar system is generally unremarkable. The right vertebral artery is dominant. The images through the neck failed to show any sign of a hemodynamically significant stenosis of the common or internal carotid arteries. 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 There is blood flow within the vessel, however. There is no mass or adenopathy involving the neck. The jugular vein is quite prominent on the right. This is most likely a developmental variant. The images through the lung apices do show pleural thickening bilaterally. However, there is an asymmetric pleural-based density along the superior mediastinum on the right. This density measures approximately 1.3 x 1.6 cm. This could be secondary to scar formation. The possibility that this is neoplastic in nature should also be considered. Unless there are previous CT chest examinations available to demonstrate that this finding is stable, then CT of the chest would be recommended for further evaluation. The bone window show no evidence for a fracture or for destructive lesion. IMPRESSION: 1. There is no defect within the intracranial arterial system to suggest a thrombus. There is no sign of an aneurysm of the [place] either. 2. 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 3. The vertebral arteries are opacified and the right vertebral artery is dominant. 4. The parenchymal density adjacent to the superior mediastinum on the right is of uncertain etiology. This could be neoplastic in nature, however. Recommendations as above. These results were discussed with Dr. Afshin Yadav in the ER. Dictated by: Dictated on workstation # [id number]
[2017-06-09] MEDS ORDERED: ALPRAZolam 0.5 MG (XANAX) TAB PO SCH (14:45)
[2017-06-09 15:01] LABS: BILIRUBIN,URINE NEGATIVE (NEGATIVE); KETONES,URINE 1+ (NEGATIVE); LEUKOCYTE ESTERASE ,URINE NEGATIVE (NEGATIVE); NITRITE,URINE NEGATIVE (NEGATIVE); PH,URINE 5 (5-9); PROTEIN,URINE 1+ (NEGATIVE); UROBILINOGEN,URINE NORMAL (NORMAL)
[2017-06-09 15:05] LABS: ALANINE AMINOTRANSFERASE 13 U/L (0-55); ALBUMIN 3.7 GM/DL (3.2-4.5); ANION GAP 5 MMOL/L (5-14); ASPARTATE AMINO TRANSFERASE 14 U/L (5-34); BILIRUBIN,TOTAL 0.8 MG/DL (0.1-1.0); BLOOD UREA NITROGEN 14 MG/DL (7-18); BUN/CREATININE RATIO 14; CALCIUM 8.8 MG/DL (8.5-10.1); CARBON DIOXIDE 27 MMOL/L (21-32); CHLORIDE 102 MMOL/L (98-107); CREATININE SERUM 0.97 MG/DL (0.60-1.30); GFR ESTIMATED > 60; GLUCOSE 102 MG/DL (70-105); MAGNESIUM 1.6 MG/DL (1.8-2.4); POTASSIUM 4.6 MMOL/L (3.6-5.0); SODIUM 134 MMOL/L (135-145); TOTAL PROTEIN 6.8 GM/DL (6.4-8.2); hs C REACTIVE PROTEIN 0.03 MG/DL (0.00-0.50)
[2017-06-09 15:10] LABS: SQUAMOUS EPITHELIAL CELL,UR RARE /HPF
[2017-06-09] MEDS ORDERED: DEXAMETHASONE 10 MG/ML (DECADRON) 1 ML VIAL ONE (16:11)
[2017-06-09] MEDS ORDERED: DEXAMETHASONE PF 10 MG/ML (DECADRON) VIAL IV ONE (16:15)
[2017-06-09 16:25] VITALS: BP 139/85
== END 2017-06-09 16:32 | disposition home or self-care (01) ==
LOC: EDUNIT# 13:19 → ER 13:20
DX: G43.909 Migraine, unspecified, not intractable, without status migrainosus (principal); D35.1 Benign neoplasm of parathyroid gland; N40.0 Benign prostatic hyperplasia without lower urinary tract symptoms; F41.9 Anxiety disorder, unspecified; I48.91 Unspecified atrial fibrillation; I25.10 Atherosclerotic heart disease of native coronary artery without angina pectoris; I10 Essential (primary) hypertension; Z95.0 Presence of cardiac pacemaker; Z79.82 Long term (current) use of aspirin; Z95.1 Presence of aortocoronary bypass graft; Z79.01 Long term (current) use of anticoagulants; Z87.891 Personal history of nicotine dependence; Z80.1 Family history of malignant neoplasm of trachea, bronchus and lung; Z82.49 Family history of ischemic heart disease and other diseases of the circulatory system
CPT/HCPCS: 36415; 70450; 70496; 70498; 71010; 80053; 81000; 83735; 85025; 85610; 85730; 86141; 93005; 96361; 96374; 96375

== ENCOUNTER → 2017-06-15 | Outpatient (CLI) | payer MEDICARE, OTHER ==
[~2017-06-15] MED LIST changes: +ALPR0.5T7; +CATHETER FLUSH 10 ML SYR IV PRN; +IOHEXOL 350 MG/ML 100 ML (OMNIPAQUE 350) VIAL IV ONE; +NS 100 ML (IVPB) BAG IV ONE; +TRAM50TA2
--- NOTE | 2017-06-15 11:42 | Diagnostic Imaging Report ---
PROCEDURE: CT chest with contrast only. TECHNIQUE: Multiple contiguous axial images were obtained through the chest after administration of intravenous contrast. INDICATION: Lung nodule seen on CTA of the neck from 06/09/2017. There is no prior study for comparison available otherwise. FINDINGS: The nodule seen in the medial aspect of the right upper lobe is again noted measuring 1.5 cm in size. It is not significantly different from 06/09/2017. There is a mild groundglass halo around it. There is pleural thickening in the lung apices. This however appears to be a nodule within the lung parenchyma. There are no other suspicious nodules or masses seen. A focal area of consolidation in the left lung base is favored to be atelectasis or scarring. Similar finding was seen on 06/21/2015 CTA. The thoracic aorta is mildly ectatic with atherosclerotic changes seen. The heart is mildly enlarged. There is a healed sternotomy. Pacemaker leads are seen. The right atrium and left atrium are particularly dilated. There is no mediastinal mass or significantly enlarged lymph node. Visualized portions of the upper abdomen demonstrate tiny cyst in the liver less than a centimeter in size and top portion of a stented graft in the abdominal aorta is seen. The osseous structures demonstrate depressed fracture of the inferior endplate of T9 of indeterminate age. IMPRESSION: 1. A 1.5 cm nodule in the medial aspect of the right upper lobe is indeterminate, and neoplasm is not excluded. Further evaluation with PET/CT is recommended. 2. Cardiomegaly with prominent dilatation of the right and left atria seen. Dictated by: Dictated on workstation # [id number]
== END ==
LOC: RAD 09:44
PROVIDERS: ATTEND Nurse Practitioner Family
DX: R91.8 Other nonspecific abnormal finding of lung field (principal)
CPT/HCPCS: 71260

== ENCOUNTER → 2017-07-03 | Outpatient (CLI) | payer MEDICARE, OTHER ==
[~2017-07-03] MED LIST changes: -CATHETER FLUSH 10 ML SYR IV PRN; -IOHEXOL 350 MG/ML 100 ML (OMNIPAQUE 350) VIAL IV ONE; -NS 100 ML (IVPB) BAG IV ONE
--- NOTE | 2017-07-03 18:58 | Diagnostic Imaging Report ---
EXAMINATION: PET-CT TECHNIQUE: Serum glucose level at the time of the study is: 103 mg/dL. 11.8 mCi of FDG was administered intravenously followed by obtaining PET images with corresponding noncontrast CT scan images. The CT scan was performed for anatomic correlation and attenuation correction and was not performed according to the diagnostic protocol of the areas covered. The scan was performed from the head to mid thighs. INDICATION: Lung mass. Correlation with CT chest from 06/15/17 is reviewed. FINDINGS: There is symmetric FDG uptake in the brain. In the right side of the neck, there is a mild focus of hypermetabolism with maximum SUV of 3.6. This appears to project over the right carotid space with no significant lymphadenopathy seen at this location. The degree of FDG uptake is not significant to be specific for a neoplastic process and is probably secondary to an inflammatory process. There is a nodule seen in the medial aspect of the right upper lobe on previous CT scan. This is not associated with significantly increased degree of hypermetabolism with maximum SUV of 2.7 which would favor a benign etiology such as focal pneumonitis. The nodule maximum dimension is 1.5 cm similar to the prior studies. There is unchanged groundglass opacity around it. In the abdomen and pelvis: There is an abdominal aortic aneurysm with an endograft repair seen. There is physiologic uptake and excretion in the urinary tract and in bowel loops with suspicious hypermetabolism seen. IMPRESSION: Minimal increased FDG uptake with an 1.5 cm nodule in the medial aspect of the right upper lobe is in favor of benign etiology. A followup CT chest in 3 months is recommended to reevaluate and ensure stability. Dictated by: Dictated on workstation # [id number]
== END ==
LOC: RAD 11:44
PROVIDERS: ATTEND Thoracic Surgery (Cardiothoracic Vascular Surgery)
DX: R91.1 Solitary pulmonary nodule (principal); Z85.118 Personal history of other malignant neoplasm of bronchus and lung

== ENCOUNTER → 2017-10-16 | Outpatient (CLI) | payer MEDICARE, OTHER ==
[~2017-10-16] MED LIST changes: +IOHEXOL 350 MG/ML 100 ML (OMNIPAQUE 350) VIAL IV ONE; +NS 250 ML (IVPB) BAG IV ONE
[2017-10-16 08:23] LABS: CALCIUM 9.3 MG/DL (8.5-10.1); CREATININE SERUM 1.2 MG/DL (0.60-1.30); POTASSIUM 3.9 MMOL/L (3.6-5.0)
--- NOTE | 2017-10-16 12:28 | Diagnostic Imaging Report ---
PROCEDURE: CT chest with contrast only. TECHNIQUE: Multiple contiguous axial images were obtained through the chest after administration of intravenous contrast. INDICATION: Followup lung nodule. COMPARISON: 06/08/2017 FINDINGS: Evaluation of lung lopez again demonstrates juxtapleural nodular density within the medial margins of the right upper lobe. There is some surrounding groundglass density. Abdominal portion of the lesion measures 1.1 x 1.7 cm. This is essentially stable compared to 1 x 1.6 cm on exam dated 06/15/2017. There is some mild image degradation of the left apex secondary to metallic streak artifact from patient's left-sided pacemaker. There is also small left effusion with some associated atelectasis. Otherwise, no other suspicious pulmonary nodules or masses are seen. There is no focal consolidation or pneumothorax on either side. Cardiomediastinal structures show moderate cardiomegaly. There is no large pericardial effusion. There is moderate calcified aortic and coronary atherosclerosis. Note is also made of reflux of contrast in the IVC and hepatic veins. Bony structures show age-related degenerative changes. No acute osseous abnormalities are identified. Included portions of the upper abdomen show postsurgical changes of previous aortobiiliac stent graft repair. Nonobstructive right renal calculus is also noted. IMPRESSION: 1. Stable juxtapleural pulmonary nodule in the right upper lobe. Continued short interval 3-4 month followup is recommended to ensure ongoing stability. 2. Small left effusion with some associated left basilar atelectasis. 3. Moderate cardiomegaly. 4. Moderate calcified aortic and coronary atherosclerosis. 5. Reflux of contrast into the IVC and hepatic veins. Findings raise suspicion for underlying right heart failure. Dictated by: Dictated on workstation # [id number]
== END ==
LOC: RAD 07:47
PROVIDERS: ATTEND Thoracic Surgery (Cardiothoracic Vascular Surgery)
DX: I25.10 Atherosclerotic heart disease of native coronary artery without angina pectoris (principal); J90 Pleural effusion, not elsewhere classified; J98.11 Atelectasis; I51.7 Cardiomegaly; I70.0 Atherosclerosis of aorta; R91.8 Other nonspecific abnormal finding of lung field
CPT/HCPCS: 36415; 71260; 80048

== ENCOUNTER 2017-10-27 09:02 | Observation (INO) | payer MEDICARE, OTHER ==
[~2017-10-27] VITALS: Ht 185.4 cm; Wt 78.3 kg
[~2017-10-27 09:02] MED LIST changes: -ALPR0.5T7; -IOHEXOL 350 MG/ML 100 ML (OMNIPAQUE 350) VIAL IV ONE; -NS 250 ML (IVPB) BAG IV ONE
[2017-10-27] MEDS ORDERED: ONDANSETRON 4 MG/2 ML (SDV) Z0FRAN IVP ONE (09:15)
[2017-10-27] MEDS ORDERED: SCOPOLAMINE 1.5 MG (TRANSDERM-SCOP) PATCH TD ONE (09:15)
[2017-10-27 09:19] LABS: BASOPHILS % (AUTO) 0 % (0-10); EOSINOPHILS % (AUTO) 1 % (0-10); HEMATOCRIT 27 % (40-54); LYMPHOCYTES % (AUTO) 24 % (12-44); MEAN CORPUSCULAR HEMOGLOBIN 33 PG (25-34); MEAN CORPUSCULAR HGB CONC 33 G/DL (32-36); MEAN CORPUSCULAR VOLUME 100 FL (80-99); MEAN PLATELET VOLUME 9.9 FL (7.4-10.4); MONOCYTES # (AUTO) 0.3 X 10^3 (0.0-1.0); MONOCYTES % (AUTO) 8 % (0-12); NEUTROPHILS # (AUTO) 2.8 X 10^3 (1.8-7.8); NEUTROPHILS % (AUTO) 68 % (42-75); PLATELET COUNT 142 10^3/uL (130-400); RED BLOOD COUNT 2.72 10^6/uL (4.35-5.85); RED CELL DISTRIBUTION WIDTH 13.4 % (10.0-14.5); WHITE BLOOD COUNT 4.1 10^3/uL (4.3-11.0)
--- NOTE | 2017-10-27 09:25 | ED General ---
General Chief Complaint: Dizziness/Syncope Source of Information: Patient, EMS, Old Records History of Present Illness Date Seen by Provider: Oct 27, 2017 Time Seen by Provider: 09:02 Initial Comments PT ARRIVES VIA EMS FROM HOME STATES HE GOT UP AROUND 0730 AND WALKED TO THE CLOSET AND SUDDENLY FELT LIKE HE MIGHT PASS OUT AND THEN GOT VERY DIZZY--SPINNING SENSATION. THEN HE STARTED GETTING NAUSEATED MUCH WORSE WITH POSITION CHANGES AND WALKING--EMS STATE THAT PT WAS ABLE TO WALK A SHORT DISTANCE ON HIS OWN AT THE SCENE. STATES HE HAS HAD THIS SEVERAL TIMES, AND LAST TIME WAS 5 MONTHS AGO ( ACTUALLY 05/2017 ) AND STATES DR. GONZALES TOLD HIM HE HAD A STROKE--PT TAKES XARELTO STATES HE TOOK HIS BP AND IT WAS FINE--133/57. ACCUCHECK 112 BY EMS NO CHEST PAIN NO SWEATS NO SHORTNESS OF BREATH NO PALPITATIONS--PT HAS HAD A PACEMAKER FOR 20 YEARS. NO HEADACHE NO VISION CHANGES NO PARESTHESIAS OR MOTOR DEFICITS PT HAS CHRONIC LEG EDEMA, BUT STATES HIS STOMACH HAS BEEN ALOT BIGGER LATELY AND HASN'T BEEN ABLE TO BEND OVER TO TIE HIS SHOES LATELY--NOT EXACTLY SURE HOW LONG THAT HAS BEEN GOING ON, BUT STATES IS FAIRLY RECENT NO VOMITING, NO ABDOMINAL PAIN, AND HAD A NORMAL BM YESTERDAY STATES NOW HIS "HEAD FEELS FULL" "LIKE I GOT A COLD OR SOMETHING" PT STATES HE DID GET AN "ALLERGY SHOT" YESTERDAY PCP: DR. CHAWLA PERSONAL INJURY SPECIALIST: DR. GONZALES Allergies and Home Medications Allergies Coded Allergies: doxycycline (Verified Allergy, Severe, DIZZINESS/NAUSEA, 06/01/17) hydrocodone (Verified Allergy, Intermediate, DIZZINESS, 06/01/17) loratadine (Verified Adverse Reaction, Intermediate, HEADACHE, 06/22/15) Home Medications Acetaminophen 500 Mg Tablet, 1,000 MG PO Q6H PRN for PAIN-MILD, (Reported) Aspirin 81 Mg Tablet., 81 MG PO DAILY Prescribed by: RAJI CHAWLA on 06/01/17 1531 Atorvastatin Calcium 40 Mg Tablet, 40 MG PO HS, (Reported) Cetirizine HCl 10 Mg Tablet, 10 MG PO DAILY, (Reported) Citalopram Hydrobromide 10 Mg Tablet, 15 MG PO DAILY, (Reported) TAKES 1 & 1/2 (10MG) TABLET Enalapril Maleate 2.5 Mg Tablet, 2.5 MG PO BID, (Reported) Finasteride 5 Mg Tablet, 5 MG PO DAILY, (Reported) Multivitamin 1 Each Tablet, 1 TAB PO DAILY, (Reported) Nebivolol HCl 10 Mg Tab, 10 MG PO HS, (Reported) Nitroglycerin 12 Gm [place], 1 SPRAY TL UD PRN for CHEST PAIN, (Reported) [place]-3 Fatty Acids/Fish Oil 1 Each Capsule, 1,200 MG PO BID, (Reported) Rivaroxaban 20 Mg Tablet, 20 MG PO 1800, (Reported) Tamsulosin HCl 0.4 Mg Cap.er.24h, 0.4 MG PO HS, (Reported) Constitutional: No chills, No diaphoresis, dizziness, No fever, No malaise, No weakness EENTM: see HPI, nose congestion, No ear pain, No blurred vision, No double vision, No vision loss Respiratory: no symptoms reported, No cough, No dyspnea on exertion, No short of breath, No stridor, No wheezing Cardiovascular: No chest pain, edema, Hx of Intervention, No palpitations, No syncope (BUT FELT LIKE HE WAS GOING TO PASS OUT), vascular heart diseas Gastrointestinal: see HPI, No abdominal pain, No constipation, No diarrhea, nausea, No vomiting Genitourinary: no symptoms reported Musculoskeletal: no symptoms reported Skin: no symptoms reported Psychiatric/Neurological: See HPI (DIZZINESS), Denies Headache, Denies Numbness , Denies Paresthesia, Denies Seizure, Denies Tingling, Denies Tremors, Denies Weakness Hematologic/Lymphatic: No Symptoms Reported (ON XARELTO) Immunological/Allergic: no symptoms reported Past Ifniexx-Ecnmqh-Rvcgip Hx Patient Social History Type Used: Cigarettes Former Smoker, Quit: Aug 20, 1978 2nd Hand Smoke Exposure: No Recent Hopitalizations: Yes (TIA/MIGRAINE) Immunizations Up To Date Tetanus Booster (TDap): Unknown Date of Pneumonia Vaccine: May 20, 2013 Date of Influenza Vaccine: May 16, 2017 Seasonal Allergies Seasonal Allergies: Yes Surgeries History of Surgeries: Yes Surgeries: Abdominal, CABG, Pacemaker, Vascular Surgery Respiratory History of Respiratory Disorde: No Cardiovascular History of Cardiac Disorders: Yes Cardiac Disorders: Aneurysm, Atrial Fibrillation, Coronary Artery Disease, Hypertension, Valvular Heart Disease Neurological History of Neurological Disord: Yes Neurological Disorders: Headaches /Migraines Reproductive System Hx Reproductive Disorders: No Sexually Transmitted Disease: No HIV/AIDS: No Genitourinary History of Genitourinary Disor: Yes Genitourinary Disorders: Benign Prostatic Hyperpl Gastrointestinal History of Gastrointestinal Di: Yes (FECAL IMPACTION 06/22/15) Gastrointestinal Disorders: Chronic Constipation Musculoskeletal History of Musculoskeletal Dis: Yes Musculoskeletal Disorders: Arthritis Endocrine History of Endocrine Disorders: No HEENT History of HEENT Disorders: Yes HEENT Disorders: Cataract Loss of Vision: Denies Hearing Impairment: Denies Cancer History of Cancer: No Psychosocial History of Psychiatric Problem: Yes Behavioral Health Disorders: Anxiety Integumentary History of Skin or Integumenta: No Blood Transfusions History of Blood Disorders: No Adverse Reaction to a Blood Tr: No Family Medical History Significant Family History: Heart Disease, Cancer, Hypertension, Stroke Family Medial History: FH: lung cancer G8 BROTHER FH: stroke 19 FATHER Myocardial infarction 19 FATHER G8 SISTER Physical Exam Vital Signs Capillary Refill : Progress/Results/Core Measures Suspected Sepsis SIRS Temperature: Pulse: Respiratory Rate: Laboratory Tests 10/27/17 09:10: Blood Pressure / Mean: Laboratory Tests 10/27/17 09:10: Results/Orders Lab Results Laboratory Tests Test 10/27/17 09:10 Range/Units My Orders Orders - BETH,NAGA K DO Saline Lock/Iv-Start (10/27/17 09:08) Ekg Tracing (10/27/17 09:08) Monitor-Rhythm Ecg Trace Only (10/27/17 09:08) Ct Head Wo-R/O Stroke (10/27/17 09:08) Cbc With Automated Diff (10/27/17 09:08) Comprehensive Metabolic Panel (10/27/17 09:08) Creatine Kinase (10/27/17 09:08) Creatine Kinase Mb (10/27/17 09:08) Magnesium (10/27/17 09:08) Protime With Inr (10/27/17 09:08) Partial Thromboplastin Time (10/27/17 09:08) Thyroid Analyzer (10/27/17 09:08) Troponin I (10/27/17 09:08) Ua Culture If Indicated (10/27/17 09:08) Chest 1 View, Ap/Pa Only (10/27/17 09:08) Ondansetron Injection (Zofran Injectio (10/27/17 09:15) Scopolamine Patch (Transderm-Scop Patch) (10/27/17 09:15) BNP (10/27/17 09:10) Medications Given in ED Current Medications Medications Dose Ordered Sig/Neli Route Start Time Stop Time Status Last Admin Dose Admin Ondansetron HCl 4 mg ONCE ONCE IVP 10/27/17 09:15 10/27/17 09:16 DC 10/27/17 09:19 4 MG Scopolamine 1.5 mg ONCE ONCE TD 10/27/17 09:15 10/27/17 09:16 DC 10/27/17 09:19 1.5 MG Vital Signs/I&O Capillary Refill : Departure Departure-Patient Inst. Referrals: RAJI CHAWLA MD (PCP/Family) Primary Care Physician NAGA CAMPOS DO Oct 27, 2017 09:25
[2017-10-27 09:35] LABS: PROTHROMBIN TIME PATIENT 22.2 SEC (12.2-14.7)
[2017-10-27 09:43] LABS: ALANINE AMINOTRANSFERASE 15 U/L (0-55); ALBUMIN 3.6 GM/DL (3.2-4.5); ALKALINE PHOSPHATASE 56 U/L (40-136); BILIRUBIN,TOTAL 0.8 MG/DL (0.1-1.0); BUN/CREATININE RATIO 14; CALCIUM 8.6 MG/DL (8.5-10.1); CARBON DIOXIDE 24 MMOL/L (21-32); CHLORIDE 107 MMOL/L (98-107); CREATINE KINASE 91 U/L (30-200); CREATININE SERUM 1.09 MG/DL (0.60-1.30); GFR ESTIMATED > 60; GLUCOSE 103 MG/DL (70-105); MAGNESIUM 1.6 MG/DL (1.8-2.4); POTASSIUM 4.1 MMOL/L (3.6-5.0); SODIUM 139 MMOL/L (135-145); TOTAL PROTEIN 6.2 GM/DL (6.4-8.2)
[2017-10-27] MEDS ORDERED: IOHEXOL 350 MG/ML 150 ML (OMNIPAQUE 350) VIAL IV ONE (09:45)
[2017-10-27] MEDS ORDERED: NS 100 ML (IVPB) BAG IV ONE (09:45)
[2017-10-27 10:02] LABS: CREATINE KINASE MB 1.9 NG/ML (<6.6); TSH (THYROID ANALYZER) 1.29 UIU/ML (0.35-4.94)
--- NOTE | 2017-10-27 10:08 | Diagnostic Imaging Report ---
Indication: Vertigo with nausea Comparison: 06/09/2017 Procedure: Unenhanced helical CT imaging of the brain is performed. Findings: No acute intracranial hemorrhage, mass effect or edema is seen. Sauceda-white junction is preserved. Ventricles appear normal. No acute focal abnormality is suspected. Paranasal sinuses and mastoids are clear as visualized. Impression: No evidence of an acute intracranial abnormality. No significant interval change from the prior study. Dictated by: Dictated on workstation # [id number]
--- NOTE | 2017-10-27 10:39 | Diagnostic Imaging Report ---
EXAM: CT KARMA CHEST/NOANG ABD-PELV W INDICATION: Shortness of air. History of abdominal aortic aneurysm. COMPARISON: CT chest with IV contrast 10/16/2017. Nuclear medicine FDG PET/CT 07/03/2017. FINDINGS: CTA chest: Small occlusive pulmonary artery filling defects in subsegmental branches of the left lower lobe. No other pulmonary artery filling defects. Moderate atherosclerotic calcifications in the thoracic aorta. No thoracic aortic aneurysm or dissection. Cardiomegaly. No evidence of right heart strain. Stable juxtapleural pulmonary nodule along the medial right upper lobe measuring up to 1.7 cm. Increasing bilateral pleural effusions. Mildly increasing consolidation in the left lung base. No pneumothorax. Prominent mediastinal lymph nodes remain subcentimeter in short axis dimension. No hilar or axillary lymphadenopathy. No pericardial effusion. Sternotomy. No acute osseous findings. CTA abdomen and pelvis: The aortobiiliac stent graft is widely patent. No evidence of an endoleak. The celiac, superior mesenteric, bilateral renal arteries are widely patent. The inferior mesenteric artery is reconstituted by collaterals. Benign-appearing subcentimeter cyst in the liver. Cholelithiasis. The pancreas, spleen, adrenals, kidneys and collecting systems are unremarkable. Colonic diverticulosis without evidence of active diverticulitis. Normal appendix. No free intraperitoneal air or fluid. No lymphadenopathy. No evidence of bowel obstruction. IMPRESSION: 1. Small pulmonary emboli in a few sub-segmental branches of the left lower lobe. Mildly increasing consolidation in the left lower lobe. 2. Enlarging bilateral pleural effusions. 3. Stable juxtapleural pulmonary nodule in the medial right upper lobe. 4. Stable aortobiiliac stent graft. No evidence of endoleak. 5. Colonic diverticulosis without evidence of active diverticulitis. Report was called to Dr. Love [facility] by dana at 10:39 am. Dictated by: Dictated on workstation # [id number]
--- NOTE | 2017-10-27 10:41 | Diagnostic Imaging Report ---
EXAM: CHEST 1 VIEW, AP/PA ONLY INDICATION: Vertigo. Shortness of air. COMPARISON: CTA chest also performed today. FINDINGS: Cardiomegaly. Sternotomy. Cardiac pacer. Mild atelectasis in the left lung base. Small bilateral pleural effusions. No acute osseous findings. IMPRESSION: 1. Cardiomegaly. 2. Atelectasis in left lung base. Dictated by: Dictated on workstation # [id number]
[2017-10-27] MEDS ORDERED: FUROSEMIDE 40 MG/4 ML INJ (LASIX) IVP ONE (11:00)
[2017-10-27] MEDS ORDERED: MECLIZINE 25 MG (ANTIVERT) TAB PO ONE (11:00)
[2017-10-27] MEDS ORDERED: KCL 20 MEQ TAB (K-DUR) PO ONE (11:15)
[2017-10-27] MEDS ORDERED: KCL 10 MEQ TAB (MICRO K) PO ONE (11:47)
[2017-10-27 11:50] LABS: BILIRUBIN,URINE NEGATIVE (NEGATIVE); CLARITY,URINE CLEAR; COLOR,URINE YELLOW; GLUCOSE, URINE (UA) NEGATIVE (NEGATIVE); KETONES,URINE NEGATIVE (NEGATIVE); LEUKOCYTE ESTERASE ,URINE NEGATIVE (NEGATIVE); NITRITE,URINE NEGATIVE (NEGATIVE); PH,URINE 8 (5-9); PROTEIN,URINE NEGATIVE (NEGATIVE); UROBILINOGEN,URINE NORMAL (NORMAL)
[2017-10-27 12:00] VITALS: BP 136/62
[2017-10-27 12:31] LABS: BACTERIA,URINE NEGATIVE /HPF; SQUAMOUS EPITHELIAL CELL,UR 0-5 /HPF; WBC,URINE 0-2 /HPF
[2017-10-27] MEDS ORDERED: ONDANSETRON 4 MG/2 ML (SDV) Z0FRAN IV PRN (13:15)
[2017-10-27] MEDS ORDERED: CATHETER FLUSH 10 ML SYR IV PRN (13:15)
[2017-10-27] MEDS ORDERED: MECLIZINE 25 MG (ANTIVERT) TAB PO PRN (13:15)
--- NOTE | 2017-10-27 13:55 | Consultation-Cardiology ---
HPI-Cardiology Cardiology Consultation: Date of Consultation 10/27/17 Time Seen by Provider: 13:50 Date of Admission Attending Physician Raji Palomares MD Admitting Physician Raji Palomares MD Consulting Physician VINOD DASILVA MD, MA, FACP, FACC, FSCAI, CCDS HPI: Chief Complaint: Vertigo HPI: 87 yo man with chronic dizziness who had a more profound event this am: profound dizziness and vertigo associated with nausea. This prompted him to come to the ER. No syncope. Has chronic exertional shortness of breath. This has been more pronounced lately. Also has chronic bilat leg swelling that has been worse lately. Denies cp or leg discomfort. Denies fever or chills. Notes gen malaise and weakness Review of Systems-Cardiology Review of Systems Constitutional: lightheadedness, malaise, No weight loss, No weight gain Eyes: No vision change Ears/Nose/Throat: No ear discharge, No nasal drainage, No recent hearing loss Respiratory: As described under HPI Cardiovascular: As described under HPI Gastrointestinal: No constipation, No diarrhea, nausea, No vomiting Genitourinary: No dysuria, No urine frequency changes Musculoskeletal: back pain (chronic) Skin: No rash, No ulcerations Psychiatric/Neurological: No seizure, No focal weakness, No syncope Hematologic: No bleeding abnormalities OFU-Xkolsl-Gvkysk Hx Patient Social History Former smoker/When Quit: Oct 07, 1969 Type Used: Cigarettes 2nd Hand Smoke Exposure: No Recent Foreign Travel: No Recent Infectious Disease Expo: No Hospitalization with Isolation: Denies Immunizations Up To Date Tetanus Booster (TDap): Unknown Date of Pneumonia Vaccine: May 20, 2013 Date of Influenza Vaccine: May 16, 2017 Past Medical History PMH As described under Assessment. Family Medical History Family History: FH: lung cancer G8 BROTHER FH: stroke 19 FATHER Myocardial infarction 19 FATHER G8 SISTER Allergies and Home Medications Allergies Coded Allergies: doxycycline (Verified Allergy, Severe, DIZZINESS/NAUSEA, 06/01/17) hydrocodone (Verified Allergy, Intermediate, DIZZINESS, 06/01/17) loratadine (Verified Adverse Reaction, Intermediate, HEADACHE, 06/22/15) Home Medications Acetaminophen 500 Mg Tablet, 1,000 MG PO Q6H PRN for PAIN-MILD, (Reported) Aspirin 81 Mg Tablet.dr, 81 MG PO DAILY Prescribed by: RAJI PALOMARES on 06/01/17 1531 Atorvastatin Calcium 40 Mg Tablet, 40 MG PO HS, (Reported) Cetirizine HCl 10 Mg Tablet, 10 MG PO DAILY, (Reported) Citalopram Hydrobromide 10 Mg Tablet, 15 MG PO DAILY, (Reported) TAKES 1 & 1/2 (10MG) TABLET Enalapril Maleate 2.5 Mg Tablet, 2.5 MG PO BID, (Reported) Finasteride 5 Mg Tablet, 5 MG PO DAILY, (Reported) Multivitamin 1 Each Tablet, 1 TAB PO DAILY, (Reported) Nebivolol HCl 10 Mg Tab, 10 MG PO HS, (Reported) Nitroglycerin 12 Gm [place], 1 SPRAY TL UD PRN for CHEST PAIN, (Reported) [place]-3 Fatty Acids/Fish Oil 1 Each Capsule, 1,200 MG PO BID, (Reported) Rivaroxaban 20 Mg Tablet, 20 MG PO 1800, (Reported) Tamsulosin HCl 0.4 Mg Cap.er.24h, 0.4 MG PO HS, (Reported) Patient Home Medication List Home Medication List Reviewed: Yes Physical Exam-Cardiology Physical Exam Vital Signs/I&O Vital Sign - Last 12Hours 10/27/17 10/27/17 09:05 12:09 Temp 97.7 Pulse 72 72 Resp 12 18 B/P (MAP) 143/73 (96) 139/63 Pulse Ox 97 99 O2 Delivery Room Air Capillary Refill : Less Than 3 Seconds Data Review Labs Laboratory Tests 10/27/17 09:10: White Blood Count 4.1L, Red Blood Count 2.72L, Hemoglobin 9.0L, Hematocrit 27L, Mean Corpuscular Volume 100H, Mean Corpuscular Hemoglobin 33, Mean Corpuscular Hemoglobin Concent 33, Red Cell Distribution Width 13.4, Platelet Count 142, Mean Platelet Volume 9.9, Neutrophils (%) (Auto) 68, Lymphocytes (%) (Auto) 24, Monocytes (%) (Auto) 8, Eosinophils (%) (Auto) 1, Basophils (%) (Auto) 0, Neutrophils # (Auto) 2.8, Lymphocytes # (Auto) 1.0, Monocytes # (Auto) 0.3, Eosinophils # (Auto) 0.0, Basophils # (Auto) 0.0, Prothrombin Time 22.2H, INR Comment 2.0H, Activated Partial Thromboplast Time 45H, Sodium Level 139, Potassium Level 4.1, Chloride Level 107, Carbon Dioxide Level 24, Anion Gap 8, Blood Urea Nitrogen 15, Creatinine 1.09, Estimat Glomerular Filtration Rate > 60 , BUN/Creatinine Ratio 14, Glucose Level 103, Calcium Level 8.6, Magnesium Level 1.6L, Total Bilirubin 0.8, Aspartate Amino Transf (AST/SGOT) 19, Alanine Aminotransferase (ALT/SGPT) 15, Alkaline Phosphatase 56, Total Creatine Kinase 91, Creatine Kinase MB 1.9, Troponin I < 0.30, B-Type Natriuretic Peptide 439.9H , Total Protein 6.2L, Albumin 3.6, TSH [place] Testing 1.29 10/27/17 11:25: Urine Color YELLOW, Urine Clarity CLEAR, Urine pH 8, Urine Specific [place] 1.010L, Urine Protein NEGATIVE, Urine Glucose (UA) NEGATIVE, Urine Ketones NEGATIVE, Urine Nitrite NEGATIVE, Urine Bilirubin NEGATIVE, Urine Urobilinogen NORMAL, Urine Leukocyte Esterase NEGATIVE, Urine RBC (Auto) NEGATIVE, Urine RBC NONE, Urine WBC 0-2, Urine Squamous Epithelial Cells 0-5, Urine Crystals NONE, Urine Bacteria NEGATIVE, Urine Casts NONE, Urine Mucus NEGATIVE, Urine Culture Indicated NO A/P-Cardiology Assessment/Admission Diagnosis Vertigo and dizzines Worsening anemia of undetermined etiology, treated by the Medical Service Pulm emboli of unknown age: small pulmonary emboli in a few sub-segmental branches of the left lower lobe on CT angio of the chest on 10/27/17 Cannot exclude L-sided pneumonia: mildly increasing consolidation in the left lower lobe on CT angio of the chest on 10/27/17 Bilateral pleural effusions and peripheral edema; CHF suspected Acute on chronic systolic and diastolic congestive heart failure; last echocardiogram done February 2017 revealed EF 45-50 percent. Left atrium moderately dilated. Moderate tricuspid regurgitation, PA pressure 40 mmHg. Coronary artery disease status post CABG 5 in 1996 with last cardiac catheterization was in September 2014 showed severe [place] coronary artery disease, patent GUAN to LAD, one vein graft bifurcating into 5 branches, the branches to the first and second obtuse marginal branches and PDA and PLV were patent. The vein graft to the diagonal artery has severe stenosis at the anastomosis point, the artery is fairly small not amenable to intervention with small vessel disease distally. Normal left ventricular size and function, ejection fraction 60 percent Stress test of 10/25/15 showed diaphragmatic attenuation with typical male pattern no sig ischemia or infarction Paroxysmal atrial fibrillation/ sick sinus syndrome; status post permanent pacemaker placement functioning normally on eval of Jul [address] Squires's Chronic oral anticoagulation with rivaroxaban Hypertension Hyperlipidemia Abdominal aortic aneurysm, infrarenal, measuring 4.3 x 4.5 cm, monitor by [facility]; has had endovascular repair of the aneurysm with Dr. Js Lakhani in May 2015 using [id number] x166 Endurant main body inserted through right femoral access and 16 x 13 x 124 Endurant contralateral limb via the left femoral access with balloon angioplasty to the right and left common iliac arteries. PAD with BEKA 0.9 on the right and 0.72 on the left; monitored by Dr Squires and [facility] H/o carotid artery stenosis and R CEA; monitored by [facility] Orthostatic dizziness, chronic. Discussion and Recomendations * iv diuretics for CHF * Rivaroxaban for a h/o a fib and pulm emboli * Eval and treat anemia as needed ([facility]) * Eval for pneumonia ([facility]) * Monitor labs * Repeat echo * Consider IVC filter VINOD DASILVA MD FACP FACC CCDS Oct 27, 2017 13:55
[2017-10-27] MEDS: CATHETER FLUSH 10 ML SYR IV SCH ×2 (14:05→22:42)
--- NOTE | 2017-10-27 15:00 | History & Physical-Hospitalist ---
HPI History of Present Illness: HPI/Chief Complaint This is an 87-year-old white male who has had increased shortness of breath over the last day or 2. He denies having any PND or orthopnea. This morning he felt like the world was spinning and he got very dizzy and became pale and presented to the emergency room with similar complaints. The patient is well known to me and appears slightly puffy. Cardiac history is reviewed. He had a similar episode in the fall of 2016 and was diagnosed with a TIA or a small CVA. Because of his pacemaker MRI is not possible. Source: patient, old records Exam Limitations: no limitations Date Seen 10/27/17 Time Seen by Provider: 14:00 Attending Physician Deepti Palomares MD PCP Deepti Palomares MD Referring Physician Date of Admission Oct 27, 2017 at 11:00 Home Medications & Allergies Home Medications Reviewed patient Home Medication Reconciliation Form Allergies Allergies Coded Allergies doxycycline (Verified Allergy, Severe, DIZZINESS/NAUSEA, 10/27/17) hydrocodone (Verified Allergy, Intermediate, DIZZINESS, 10/27/17) loratadine (Verified Adverse Reaction, Intermediate, HEADACHE, 10/27/17) Past [id number] Hx Patient Social History Marrital Status: Employed/Student: retired Alcohol Use: Denies Use Former Smoker, Quit: Aug 20, 1978 Type Used: Cigarettes 2nd Hand Smoke Exposure: No Recent Foreign Travel: No Contact w/other who traveled: No Recent Hopitalizations: Yes (TIA/MIGRAINE) Recent Infectious Disease Expo: No Immunizations Up To Date Tetanus Booster (TDap): Unknown Date of Pneumonia Vaccine: May 20, 2013 Date of Influenza Vaccine: May 16, 2017 Seasonal Allergies Seasonal Allergies: Yes Surgeries Yes Abdominal, CABG, Pacemaker, Vascular Surgery Respiratory No Cardiovascular Yes Aneurysm, Atrial Fibrillation, Coronary Artery Disease, Hypertension, Valvular Heart Disease Neurological Yes Headaches /Migraines Reproductive System Hx Reproductive Disorders: No Sexually Transmitted Disease: No HIV/AIDS: No Genitourinary Yes Benign Prostatic Hyperpl Gastrointestinal Yes (FECAL IMPACTION 06/22/15) Chronic Constipation Musculoskeletal Yes Arthritis Endocrine History of Endocrine Disorders: No HEENT History of HEENT Disorders: Yes HEENT Disorders: Cataract Loss of Vision: Denies Hearing Impairment: Denies Cancer No Psychosocial History of Psychiatric Problem: Yes Behavioral Health Disorders: Anxiety Integumentary History of Skin or Integumenta: No Blood Transfusions History of Blood Disorders: No Adverse Reaction to a Blood Tr: No Family Medical History Significant Family History: Heart Disease, Cancer, Hypertension, Stroke Family Hx: FH: lung cancer G8 BROTHER FH: stroke 19 FATHER Myocardial infarction 19 FATHER G8 SISTER Review of Systems Constitutional: see HPI, weakness EENTM: no symptoms reported Respiratory: dyspnea on exertion Cardiovascular: no symptoms reported Gastrointestinal: no symptoms reported Genitourinary: no symptoms reported Musculoskeletal: muscle weakness Skin: no symptoms reported Psychiatric/Neurological: No Symptoms Reported Physical Exam Physical Exam Vital Signs Vital Signs - First Documented 10/27/17 09:05 Temp 97.7 Pulse 72 Resp 12 B/P (MAP) 143/73 (96) Pulse Ox 97 O2 Delivery Room Air Capillary Refill : Less Than 3 Seconds General Appearance: No Apparent Distress, WD/WN HEENT: Normal ENT Inspection Neck: Supple, Other (Witt wave) Respiratory: Lungs Clear, Decreased Breath Sounds Cardiovascular: Regular Rate, Rhythm, Systolic Murmur (10/23) Gastrointestinal: No Organomegaly, Non Tender, Soft Rectal: Deferred Back: Normal Inspection Extremity: No Pedal Edema Neurologic/Psychiatric: Alert, Oriented x3, No Motor/Sensory Deficits, Normal Mood/Affect, net applications developer II-XII Norm as Tested Skin: Normal Color, Warm/Dry Results Results/Procedures Lab Laboratory Tests 10/27/17 09:10 10/28/17 05:58 Assessment/Plan Admission Diagnosis 1. Subsegmental pulmonary emboli-on Xarelto-may require vena caval filter 2. Possible increased congestive heart failure as evidenced by pleural effusions and dyspnea-we'll repeat echo 3. History of November atrial fibrillation with sick sinus syndrome status post pacemaker placement 4. Valvular heart disease possible increased mitral valve regurgitation as evidenced by possible witt wave 5. History of abdominal aneurysm with repair by Dr. Jack no evidence of leak 6. Peripheral vascular disease- both of t extremities and carotid arteries 7. Anemia we'll check iron studies B12 and Hemoccult stools, will also check for re-tic rate 8. Neutropenia new- may require hematology consult Admission Status: Observation BETZY MAGDALENO MD Oct 27, 2017 3:00 pm
[2017-10-27] MEDS ORDERED: ALPRAZolam 0.5 MG (XANAX) TAB PO PRN (15:15)
[2017-10-27 15:40] LABS: RED BLOOD COUNT 3.37 10^6/uL (4.35-5.85); RETICULOCYTE % 1.91 % (0.50-2.40)
[2017-10-27 16:00] VITALS: BP 116/59
[2017-10-27] MEDS: RIVAROXABAN 20 MG TABLET (XARELTO) PO SCH (17:08)
[2017-10-27] MEDS: FUROSEMIDE 40 MG/4 ML INJ (LASIX) IV SCH (17:08)
[2017-10-27] MEDS: KCL 20 MEQ TAB (K-DUR) PO SCH (17:08)
[2017-10-27] MEDS: ENALAPRIL 2.5 MG (VASOTEC) TAB PO SCH ×2 (18:50→22:42)
[2017-10-27 21:00] VITALS: BP 105/53
[2017-10-27] MEDS ORDERED: ENALAPRIL 2.5 MG (VASOTEC) TAB PO SCH (21:00)
[2017-10-27] MEDS ORDERED: NON-FORMULARY MEDICATION 1 EA EA (Nebivolol HCl (Bystolic) 10 MG) PO SCH (21:00)
[2017-10-27 22:36] VITALS: BP 98/54
[2017-10-27] MEDS: NEBIVOLOL 5 MG TAB (BYSTOLIC) PO SCH (22:41)
[2017-10-27] MEDS: TAMSULOSIN 0.4 MG (FLOMAX) CAP PO SCH (22:42)
[2017-10-27] MEDS: ATORVASTATIN 40 MG (LIPITOR) TABLET PO SCH (22:42)
[2017-10-28 00:30] VITALS: BP 149/79
[2017-10-28 04:44] VITALS: BP 126/60
[2017-10-28 06:15] LABS: BASOPHILS % (AUTO) 0 % (0-10); EOSINOPHILS # (AUTO) 0.1 10^3/uL (0.0-0.3); EOSINOPHILS % (AUTO) 1 % (0-10); HEMATOCRIT 30 % (40-54); HEMOGLOBIN 9.9 G/DL (13.3-17.7); LYMPHOCYTES # (AUTO) 1.1 X 10^3 (1.0-4.0); LYMPHOCYTES % (AUTO) 20 % (12-44); MEAN CORPUSCULAR HEMOGLOBIN 33 PG (25-34); MEAN CORPUSCULAR HGB CONC 33 G/DL (32-36); MEAN CORPUSCULAR VOLUME 100 FL (80-99); MEAN PLATELET VOLUME 10.1 FL (7.4-10.4); MONOCYTES # (AUTO) 0.5 X 10^3 (0.0-1.0); MONOCYTES % (AUTO) 9 % (0-12); NEUTROPHILS # (AUTO) 3.8 X 10^3 (1.8-7.8); NEUTROPHILS % (AUTO) 70 % (42-75); PLATELET COUNT 155 10^3/uL (130-400); RED BLOOD COUNT 3.02 10^6/uL (4.35-5.85); RED CELL DISTRIBUTION WIDTH 13.6 % (10.0-14.5); WHITE BLOOD COUNT 5.4 10^3/uL (4.3-11.0)
[2017-10-28 06:33] LABS: ALBUMIN 3.7 GM/DL (3.2-4.5); BILIRUBIN,TOTAL 0.6 MG/DL (0.1-1.0); CALCIUM 9.5 MG/DL (8.5-10.1); CREATININE SERUM 1.29 MG/DL (0.60-1.30); POTASSIUM 4.1 MMOL/L (3.6-5.0); TOTAL PROTEIN 6.4 GM/DL (6.4-8.2)
[2017-10-28] MEDS: FUROSEMIDE 40 MG/4 ML INJ (LASIX) IV SCH (06:45)
[2017-10-28] MEDS: CATHETER FLUSH 10 ML SYR IV SCH ×3 (06:45→20:54)
[2017-10-28] MEDS: KCL 20 MEQ TAB (K-DUR) PO SCH (06:45)
--- OUTSIDE RECORDS SUMMARY | 2017-10-28 07:45 | XMS REPORT | Continuity of Care Document ---
Author Author [facility] Organization [facility] Address Unknown Phone Unavailable Allergies Active Description Code Type Severity Reaction Onset Reported/Identified Relationship to Patient Clinical Status Yes doxycycline [id number] Drug Allergy Unknown N/A 12/23/2008 Yes loratadine [id number] Drug Allergy Unknown N/A 12/23/2008 Yes loratadine [id number] Drug Allergy Moderate HEADACHE 06/22/2015 Yes hydrocodone [id number] Drug Allergy Unknown N/A 06/22/2015 Yes loratadine [id number] Drug Allergy Unknown HEADACHE 06/22/2015 Yes doxycycline [id number] Drug Allergy Severe DIZZINESS/NAUSE 06/01/2017 Yes hydrocodone [id number] Drug Allergy Moderate DIZZINESS 06/01/2017 Medications There is no data. 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 [...] Ot V58.61 ANTICOAGULANTS,LT,CURRENT USE 10/07/2014 Ot V58.69 OTH MED,LT, CURRENT USE 05/26/2015 CAMMY DANG, RAJI Marcos Ot 780.4 05/26/2015 CAMMY DANG, RAJI Marcos Ot 781.2 06/03/2015 CAMMY DANG, RAJI Marcos Ot 780.4 06/03/2015 CAMMY DANG, RAJI Marcos Ot 781.2 06/22/2015 Ot 414.00 06/22/2015 Ot [...] 06/22/2015 BETZY MAGDALENO MD Ot 789.00 06/22/2015 RASHAD DONATO Ot 397.0 06/22/2015 RASHAD DONATO Ot 401.9 06/22/2015 NICOLETTE PA, RASHAD K Ot 414.00 06/22/2015 RASHAD DONATO Ot 424.0 06/22/2015 RASHAD DONATO Ot 427.1 06/22/2015 RASHAD DONATO Ot 427.31 06/22/2015 RASHAD DONATO Ot 441.4 06/22/2015 RASHAD DONATO Ot 780.2 06/22/2015 RASHAD DONATO Ot 780.4 06/22/2015 RASHAD DONATO Ot 272.4 06/22/2015 NICOLETTE PA, RASHAD K Ot 414.00 06/22/2015 NICOLETTE KAPLAN, RASHAD K Ot 427.31 06/22/2015 NICOLETTE KAPLAN, RASHAD K Ot 429.3 06/22/2015 NICOLETTE KAPLAN, RASHAD K Ot 780.2 06/22/2015 NICOLETTE KAPLAN, RASHAD Albarran Ot 780.4 06/22/2015 CAMMY DANG, RAJI Marcos Ot 780.4 06/22/2015 RAJI CHAWLA MD Ot 781.2 06/22/2015 SAMUEL DANG, ALY Arora Ot I71.4 06/22/2015 Ot 427.31 06/22/2015 Ot 427.81 06/22/2015 Ot 427.31 06/22/2015 Ot 427.81 06/22/2015 Ot 427.31 06/22/2015 Ot 427.81 06/23/2015 RAJI CHAWLA MD Ot D64.9 ANEMIA, UNSPECIFIED 06/23/2015 RAJI CHAWLA MD Ot I10 ESSENTIAL (PRIMARY) HYPERTENSION 06/23/2015 RAJI CHAWLA MD Ot K56.41 FECAL IMPACTION 06/23/2015 RAJI CHAWLA MD Ot R33.9 RETENTION OF URINE, UNSPECIFIED 06/23/2015 RAJI CHAWLA MD Ot T85.698D [facility] COMPL OF INTERNAL PROSTH DEV/GRFT, 07/02/2015 ALY BAKER MD Ot I71.4 07/19/2015 [...] 10/07/2015 Ot 401.9 10/07/2015 Ot 414.00 10/07/2015 RASTA DANG, BETZY M Ot 787.91 10/07/2015 RASTA DANG, BETZY Whaley Ot 789.00 10/07/2015 BABB-ABRAM PA, RASHAD K [...] CAMMY DANG, RAJI Marcos Ot 780.4 10/07/2015 CAMMY DANG, RAJI Marcos Ot 781.2 10/07/2015 SAMUEL DANG, ALY Arora Ot I71.4 10/28/2015 JANET DANG, RAS Estrada Ot I48.91 10/28/2015 JANET DANG, RAS Estrada Ot E78.2 10/28/2015 JANET DANG, RAS Estrada Ot I10 10/28/2015 JANET DANG, RAS Estrada Ot I25.10 10/28/2015 JANET DANG, RAS Estrada Ot I48.0 10/28/2015 JANET DANG, RAS Estrada Ot I73.9 11/01/2015 JANET DANG, RAS Estrada Ot I48.91 11/16/2015 RAS GONZALES MD Ot E78.2 11/16/2015 RAS GONZALES MD Ot I10 11/16/2015 RAS GONZALES MD Ot I25.10 11/16/2015 RAS GONZALES MD Ot I48.0 11/16/2015 RAS GONZALES MD Ot I73.9 12/07/2015 RAS GONZALES MD Ot E78.2 MIXED HYPERLIPIDEMIA 12/07/2015 RAS GONZALES MD Ot I10 ESSENTIAL (PRIMARY) HYPERTENSION 12/07/2015 RAS GONZALES MD Ot I25.10 ATHSCL HEART DISEASE OF [place] CORONARY 12/07/2015 RSA GONZALES MD Ot I48.0 PAROXYSMAL ATRIAL FIBRILLATION [...] MD Ot I25.10 ATHSCL HEART DISEASE OF [place] CORONARY 02/22/2017 RAS GONZALES MD Ot I48.0 PAROXYSMAL ATRIAL FIBRILLATION 02/22/2017 RAS GONZALES MD Ot I73.9 PERIPHERAL VASCULAR DISEASE, UNSPECIFIED 02/23/2017 RAS GONZALES MD Ot E78.2 MIXED HYPERLIPIDEMIA 02/23/2017 RAS GONZALES MD Ot I10 ESSENTIAL (PRIMARY) HYPERTENSION 02/23/2017 RAS GONZALES MD Ot I25.10 ATHSCL HEART DISEASE OF [place] CORONARY 02/23/2017 RAS GONZALES MD Ot R06.02 SHORTNESS OF BREATH 02/26/2017 RAS GONZALES MD Ot E78.2 MIXED HYPERLIPIDEMIA 02/26/2017 RAS GONZALES MD Ot I10 ESSENTIAL (PRIMARY) HYPERTENSION 02/26/2017 RAS GONZALES MD Ot I25.10 ATHSCL HEART DISEASE OF [place] CORONARY 02/26/2017 RAS GONZALES MD Ot R06.02 SHORTNESS OF BREATH 02/26/2017 RAS GONZALES MD Ot E78.2 MIXED HYPERLIPIDEMIA 02/26/2017 RAS GONZALES MD J Ot I10 ESSENTIAL (PRIMARY) HYPERTENSION 02/26/2017 RAS GONZALES MD J Ot I25.10 ATHSCL HEART DISEASE OF [place] CORONARY 02/26/2017 RAS GONZALES MD J Ot R06.02 SHORTNESS OF BREATH 02/26/2017 RAS GONZALES MD Ot E78.2 MIXED HYPERLIPIDEMIA 02/26/2017 RAS GONZALES MD J Ot I10 ESSENTIAL (PRIMARY) HYPERTENSION 02/26/2017 RAS GONZALES MD Ot I25.10 ATHSCL HEART DISEASE OF [place] CORONARY 02/26/2017 RAS GONZALES MD Ot R06.02 SHORTNESS OF BREATH 02/26/2017 RAS GONZALES MD Ot E78.2 MIXED HYPERLIPIDEMIA 02/26/2017 RAS GONZALES MD J Ot I10 ESSENTIAL (PRIMARY) HYPERTENSION 02/26/2017 RAS GONZALES MD Ot I25.10 ATHSCL HEART DISEASE OF [place] CORONARY 02/26/2017 RAS GONZALES MD Ot R06.02 SHORTNESS OF BREATH 02/26/2017 RAS GONZALES MD Ot E78.2 MIXED HYPERLIPIDEMIA 02/26/2017 RAS GONZALES MD J Ot I10 ESSENTIAL (PRIMARY) HYPERTENSION 02/26/2017 RAS GONZALES MD Ot I25.10 ATHSCL HEART DISEASE OF [place] CORONARY 02/26/2017 RAS GONZALES MD Ot R06.02 SHORTNESS OF BREATH 02/26/2017 RAS GONZALES MD Ot E78.2 MIXED HYPERLIPIDEMIA 02/26/2017 RAS GONZALES MD J Ot I10 ESSENTIAL (PRIMARY) HYPERTENSION 02/26/2017 RAS GONZALES MD Ot I25.10 ATHSCL HEART DISEASE OF [place] CORONARY 02/26/2017 RAS GONZALES MD J Ot R06.02 SHORTNESS OF BREATH 03/16/2017 RAS GONZALES MD Ot E78.2 MIXED HYPERLIPIDEMIA 03/16/2017 RAS GONZALES MD J Ot I10 ESSENTIAL (PRIMARY) HYPERTENSION 03/16/2017 RAS GONZALES MD Ot I25.10 ATHSCL HEART DISEASE OF [place] CORONARY 03/16/2017 RAS GONZALES MD Ot R06.02 SHORTNESS OF BREATH 03/26/2017 RAS GONZALES MD Ot E78.2 MIXED HYPERLIPIDEMIA 03/26/2017 RAS GONZALES MD Ot I10 ESSENTIAL (PRIMARY) HYPERTENSION 03/26/2017 RAS GONZALES MD Ot I25.10 ATHSCL HEART DISEASE OF [place] CORONARY 03/26/2017 RAS GONZALES MD Ot R06.02 SHORTNESS OF BREATH 05/29/2017 Ot 272.4 HYPERLIPIDEMIA NEC/NOS 05/29/2017 Ot 397.0 TRICUSPID VALVE DISEASE 05/29/2017 Ot 401.9 HYPERTENSION NOS 05/29/2017 Ot 414.00 CORON ATHEROSCLER NOS TYPE VESSEL, NATIV 05/29/2017 Ot 424.0 MITRAL VALVE DISORDER 05/29/2017 Ot 272.4 HYPERLIPIDEMIA NEC/NOS 05/29/2017 Ot 401.9 HYPERTENSION NOS 05/29/2017 Ot 414.00 CORON ATHEROSCLER NOS TYPE VESSEL, NATIV 05/29/2017 RASTA DANG, BETZY Whaley Ot 787.91 DIARRHEA 05/29/2017 BETZY MAGDALENO MD Ot 789.00 ABDOMINAL PAIN, UNSPECIFIED SITE 05/29/2017 RASHAD DONATO Ot 397.0 TRICUSPID VALVE DISEASE 05/29/2017 RASHAD DONATO Ot 401.9 HYPERTENSION NOS 05/29/2017 RASHAD DONATO Ot 414.00 CORON ATHEROSCLER NOS TYPE VESSEL, NATIV 05/29/2017 RASHAD DONATO Ot 424.0 MITRAL VALVE DISORDER 05/29/2017 RASHAD DONATO Ot 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 05/29/2017 RASHAD DONATO Ot 427.31 ATRIAL FIBRILLATION 05/29/2017 RASHAD DONATO Ot 441.4 ABDOM AORTIC ANEURYSM 05/29/2017 RASHAD DONATO Ot 780.2 SYNCOPE AND COLLAPSE 05/29/2017 RASHAD DONATO Ot 780.4 DIZZINESS AND GIDDINESS 05/29/2017 RASHAD DONATO Ot 272.4 HYPERLIPIDEMIA NEC/NOS 05/29/2017 NICOLETTE KAPLAN RASHAD K Ot 414.00 CORON ATHEROSCLER NOS TYPE VESSEL, NATIV 05/29/2017 RASHAD DONATO Ot 427.31 ATRIAL FIBRILLATION 05/29/2017 RASHAD DONATO Ot 429.3 CARDIOMEGALY 05/29/2017 RASHAD DONATO Ot 780.2 SYNCOPE AND COLLAPSE 05/29/2017 RASHAD DONATO Ot 780.4 DIZZINESS AND GIDDINESS 05/29/2017 RAJI CHAWLA MD Ot 780.4 DIZZINESS AND GIDDINESS 05/29/2017 RAJI CHAWLA MD Ot 781.2 ABNORMALITY OF GAIT 05/29/2017 SAMUEL DANG, ALY Arora Ot I71.4 ABDOMINAL AORTIC ANEURYSM, 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 05/29/2017 RAS GONZALES MD Ot I48.91 UNSPECIFIED ATRIAL FIBRILLATION 05/29/2017 RAS GONZALES MD Ot E78.2 MIXED HYPERLIPIDEMIA 05/29/2017 RAS GONZALES MD Ot I10 ESSENTIAL (PRIMARY) HYPERTENSION 05/29/2017 RAS GONZALES MD Ot I25.10 ATHSCL HEART DISEASE OF [place] CORONARY 05/29/2017 RAS GONZALES MD Ot I48.0 PAROXYSMAL ATRIAL FIBRILLATION 05/29/2017 RAS GNOZALES MD Ot I73.9 PERIPHERAL VASCULAR DISEASE, UNSPECIFIED 05/29/2017 RAS GONZALES MD Ot E78.2 MIXED HYPERLIPIDEMIA 05/29/2017 RAS GONZALES MD Ot I10 ESSENTIAL (PRIMARY) HYPERTENSION 05/29/2017 RAS GONZALES MD Ot I25.10 ATHSCL HEART DISEASE OF [place] CORONARY 05/29/2017 RAS GONZALES MD Ot R06.02 SHORTNESS OF BREATH 05/30/2017 EDGARDO TY APRN Ot R51 HEADACHE 06/02/2017 RAJI CHAWLA MD Ot E78.5 HYPERLIPIDEMIA, UNSPECIFIED 06/02/2017 RAJI CHAWLA MD Ot G45.9 TRANSIENT CEREBRAL ISCHEMIC ATTACK, UNSP 06/02/2017 RAJI CHAWLA MD Ot H53.9 UNSPECIFIED VISUAL DISTURBANCE 06/02/2017 RAJI CHAWLA MD Ot I10 ESSENTIAL (PRIMARY) HYPERTENSION 06/02/2017 RJAI CHAWLA MD Ot I25.10 ATHSCL HEART DISEASE OF [place] CORONARY 06/02/2017 RAJI CHAWLA MD Ot I48.2 CHRONIC ATRIAL FIBRILLATION 06/02/2017 RAJI CHAWLA MD Ot 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 06/02/2017 RAJI CHAWLA MD Ot 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 06/02/2017 RAJI CHAWLA MD Ot 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 06/02/2017 RAJI CHAWLA MD Ot Z79.899 OTHER DETENTION (CURRENT) DRUG THERAPY 06/02/2017 RAJI CHAWLA MD Ot Z86.79 PERSONAL HISTORY OF OTHER DISEASES OF 06/02/2017 RAJI CHAWLA MD Ot Z95.0 PRESENCE OF CARDIAC PACEMAKER 06/02/2017 RAJI CHAWLA MD Ot Z95.1 PRESENCE OF AORTOCORONARY BYPASS GRAFT 06/02/2017 RAJI CHAWLA MD Ot E78.5 HYPERLIPIDEMIA, UNSPECIFIED 06/02/2017 RAJI CHAWLA MD Ot G45.9 TRANSIENT CEREBRAL ISCHEMIC ATTACK, UNSP 06/02/2017 RAJI CHAWLA MD Ot H53.9 UNSPECIFIED VISUAL DISTURBANCE 06/02/2017 RAJI CHAWLA MD Ot I10 ESSENTIAL (PRIMARY) HYPERTENSION 06/02/2017 RAJI CHAWLA MD Ot I25.10 ATHSCL HEART DISEASE OF [place] CORONARY 06/02/2017 RAJI CHAWLA MD Ot I48.2 CHRONIC ATRIAL FIBRILLATION 06/02/2017 RAJI CHAWLA MD Ot 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 06/02/2017 RAJI CHAWLA MD Ot Z79.01 DETENTION (CURRENT) USE OF ANTICOAGULANT 06/02/2017 RAJI CHAWLA MD Ot 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 06/02/2017 RAJI CHAWLA MD Ot Z79.899 OTHER DETENTION (CURRENT) DRUG THERAPY 06/02/2017 RAJI CHAWLA MD Ot Z86.79 PERSONAL HISTORY OF OTHER DISEASES OF TH 06/02/2017 RAJI CHAWLA MD Ot Z95.0 PRESENCE OF CARDIAC PACEMAKER 06/02/2017 RAJI CHAWLA MD Ot Z95.1 PRESENCE OF AORTOCORONARY BYPASS GRAFT 06/09/2017 ABHI MOCK MD, Ot 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 06/09/2017 ABHI MOCK MD Ot F41.9 ANXIETY DISORDER, UNSPECIFIED 06/09/2017 ABHI MOCK MD Ot G43.909 MIGRAINE, UNSP, NOT INTRACTABLE, WITHOUT 06/09/2017 ABHI MOCK MD Ot I10 ESSENTIAL (PRIMARY) HYPERTENSION 06/09/2017 ABHI MOCK MD Ot I25.10 ATHSCL HEART DISEASE OF [place] CORONARY 06/09/2017 ABHI MOCK MD Ot I48.91 UNSPECIFIED ATRIAL FIBRILLATION 06/09/2017 ABHI MOCK MD Ot N40.0 BENIGN PROSTATIC HYPERPLASIA WITHOUT LOW 06/09/2017 ABHI MOCK MD Ot R51 HEADACHE 06/09/2017 ABHI MOCK MD Ot 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 06/09/2017 ABHI MOCK MD Ot Z79.82 DETENTION (CURRENT) USE OF ASPIRIN 06/09/2017 ABHI MOCK MD Ot Z80.1 FAMILY HISTORY OF MALIG NEOPLASM OF [place] 06/09/2017 ABHI MOCK MD Ot Z82.49 FAMILY HX OF ISCHEM HEART DIS AND OTH DI 06/09/2017 ABHI MOCK MD Ot Z87.891 PERSONAL HISTORY OF NICOTINE DEPENDENCE 06/09/2017 ABHI MOCK MD Ot Z95.0 PRESENCE OF CARDIAC PACEMAKER 06/09/2017 ABHI MOCK MD Ot Z95.1 PRESENCE OF AORTOCORONARY BYPASS GRAFT 06/15/2017 ABHI MOCK MD Ot 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 06/15/2017 ABHI MOCK MD Ot F41.9 ANXIETY DISORDER, UNSPECIFIED 06/15/2017 ABHI MOCK MD Ot G43.909 MIGRAINE, UNSP, NOT INTRACTABLE, WITHOUT 06/15/2017 ABHI MOCK MD Ot I10 ESSENTIAL (PRIMARY) HYPERTENSION 06/15/2017 ABHI MOCK MD Ot I25.10 ATHSCL HEART DISEASE OF [place] CORONARY 06/15/2017 ABHI MOCK MD Ot I48.91 UNSPECIFIED ATRIAL FIBRILLATION 06/15/2017 ABHI MOCK MD Ot N40.0 BENIGN PROSTATIC HYPERPLASIA WITHOUT LOW 06/15/2017 ABHI MOCK MD Ot R51 HEADACHE 06/15/2017 ABHI MOCK MD Ot 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 06/15/2017 ABHI MOCK MD Ot Z79.82 DETENTION (CURRENT) USE OF ASPIRIN 06/15/2017 ABHI MOCK MD Ot Z80.1 FAMILY HISTORY OF MALIG NEOPLASM OF [place] 06/15/2017 ABHI MOCK MD Ot Z82.49 FAMILY HX OF ISCHEM HEART DIS AND OTH DI 06/15/2017 ABHI MOCK MD Ot Z87.891 PERSONAL HISTORY OF NICOTINE DEPENDENCE 06/15/2017 ABHI MOCK MD Ot Z95.0 PRESENCE OF CARDIAC PACEMAKER 06/15/2017 ABHI MOCK MD Ot Z95.1 PRESENCE OF AORTOCORONARY BYPASS GRAFT 06/19/2017 EDGARDO TY CALL WORKER PERSON Ot R51 HEADACHE 06/26/2017 EDGARDO TY CALL WORKER PERSON Ot R51 HEADACHE 07/02/2017 Ot 272.4 HYPERLIPIDEMIA NEC/NOS 07/02/2017 Ot 397.0 TRICUSPID VALVE DISEASE 07/02/2017 Ot 401.9 HYPERTENSION NOS 07/02/2017 Ot 414.00 CORON ATHEROSCLER NOS TYPE VESSEL, NATIV 07/02/2017 Ot 424.0 MITRAL VALVE DISORDER 07/02/2017 Ot 272.4 HYPERLIPIDEMIA NEC/NOS 07/02/2017 Ot 401.9 HYPERTENSION NOS 07/02/2017 Ot 414.00 CORON ATHEROSCLER NOS TYPE VESSEL, NATIV 07/02/2017 BETZY MAGDALENO MD Ot 787.91 DIARRHEA 07/02/2017 BETZY MAGDALENO MD Ot 789.00 ABDOMINAL PAIN, UNSPECIFIED SITE 07/02/2017 RASHAD DONATO Ot 397.0 TRICUSPID VALVE DISEASE 07/02/2017 RASHAD DONATO Ot 401.9 HYPERTENSION NOS 07/02/2017 RASHAD DONATO Ot 414.00 CORON ATHEROSCLER NOS TYPE VESSEL, NATIV 07/02/2017 NICOLETTE KAPLAN RASHAD K Ot 424.0 MITRAL VALVE DISORDER 07/02/2017 NICOLETTE KAPLAN RASHAD K Ot 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 07/02/2017 NICOLETTE KAPLAN RASHAD K Ot 427.31 ATRIAL FIBRILLATION 07/02/2017 NICOLETTE KAPLAN RASHAD K Ot 441.4 ABDOM AORTIC ANEURYSM 07/02/2017 NICOLETTE KAPLAN RASHAD K Ot 780.2 SYNCOPE AND COLLAPSE 07/02/2017 NICOLETTE KAPLAN RASHAD K Ot 780.4 DIZZINESS AND GIDDINESS 07/02/2017 NICOLETTE KAPLAN RASHAD K Ot 272.4 HYPERLIPIDEMIA NEC/NOS 07/02/2017 NICOLETTE KAPLAN RASHAD K Ot 414.00 CORON ATHEROSCLER NOS TYPE VESSEL, NATIV 07/02/2017 NICOLETTE KAPLAN RASHAD K Ot 427.31 ATRIAL FIBRILLATION 07/02/2017 NICOLETTE KAPLAN RASHAD K Ot 429.3 CARDIOMEGALY 07/02/2017 NICOLETTE KAPLAN RASHAD K Ot 780.2 SYNCOPE AND COLLAPSE 07/02/2017 NICOLETTE KAPLAN RASHAD K Ot 780.4 DIZZINESS AND GIDDINESS 07/02/2017 CAMMY DANG, RAJI aMrcos Ot 780.4 DIZZINESS AND GIDDINESS 07/02/2017 CAMMY DANG, RAJI Marcos Ot 781.2 ABNORMALITY OF GAIT 07/02/2017 SAMUEL DANG, ALY Arora Ot I71.4 ABDOMINAL AORTIC ANEURYSM, 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 07/02/2017 RAS GONZALES MD Ot I48.91 UNSPECIFIED ATRIAL FIBRILLATION 07/02/2017 RAS GONZALES MD Ot E78.2 MIXED HYPERLIPIDEMIA 07/02/2017 RAS GONZALES MD Ot I10 ESSENTIAL (PRIMARY) HYPERTENSION 07/02/2017 RAS GONZALES MD Ot I25.10 ATHSCL HEART DISEASE OF [place] CORONARY 07/02/2017 RAS GONZALES MD Ot I48.0 PAROXYSMAL ATRIAL FIBRILLATION 07/02/2017 RAS GONZALES MD Ot I73.9 PERIPHERAL VASCULAR DISEASE, UNSPECIFIED 07/02/2017 RAS GONZALES MD Ot E78.2 MIXED HYPERLIPIDEMIA 07/02/2017 RAS GONZALES MD Ot I10 ESSENTIAL (PRIMARY) HYPERTENSION 07/02/2017 RAS GONZALES MD Ot I25.10 ATHSCL HEART DISEASE OF [place] CORONARY 07/02/2017 RAS GONZALES MD Ot R06.02 SHORTNESS OF BREATH 07/02/2017 EDGARDO TY APRN Ot R51 HEADACHE 07/02/2017 EDGARDO TY CALL WORKER PERSON Ot R91.8 OTHER NONSPECIFIC ABNORMAL FINDING OF [place] 07/04/2017 ALY BAKER MD Ot R91.1 SOLITARY PULMONARY NODULE 07/04/2017 ALY BAKER MD Ot Z85.118 PERSONAL HISTORY OF MALIGNANT NEOPLASM O 07/09/2017 EDGARDO TY CALL WORKER PERSON Ot R91.8 OTHER NONSPECIFIC ABNORMAL FINDING OF [place] 07/24/2017 EDGARDO TY APRN Ot R91.8 OTHER NONSPECIFIC ABNORMAL FINDING OF [place] 07/24/2017 ALY BAKER MD Ot R91.1 SOLITARY PULMONARY NODULE 07/24/2017 ALY BAKER MD Ot Z85.118 PERSONAL HISTORY OF MALIGNANT NEOPLASM O 08/06/2017 ALY BAKER MD Ot R91.1 SOLITARY PULMONARY NODULE 08/06/2017 ALY BAKER MD Ot Z85.118 PERSONAL HISTORY OF MALIGNANT NEOPLASM O 10/17/2017 ALY BAKER MD Ot I25.10 ATHSCL HEART DISEASE OF [place] CORONARY 10/17/2017 ALY BAKER MD Ot 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 10/17/2017 ALY BAKER MD Ot I70.0 ATHEROSCLEROSIS OF AORTA 10/17/2017 ALY BAKER MD Ot J90 PLEURAL EFFUSION, NOT ELSEWHERE CLASSIFI 10/17/2017 ALY BAKER MD Ot J98.11 ATELECTASIS 10/17/2017 ALY BAKER MD Ot R91.8 OTHER NONSPECIFIC ABNORMAL FINDING OF [place] Procedures There is no data. Results Test Result Range Complete blood count (CBC) with automated white blood cell (WBC) differential - 05/31/17 16:30 Blood leukocytes automated count (number/volume) 5.5 10*3/uL 4.3-11.0 Blood erythrocytes automated count (number/volume) 3.66 10*6/uL 4.35-5.85 Venous blood hemoglobin measurement (mass/volume) 11.8 g/dL 13.3-17.7 Blood hematocrit (volume fraction) 36 % 40-54 Automated erythrocyte mean corpuscular volume 98 [foz_us] 80-99 Automated erythrocyte mean corpuscular hemoglobin (mass per erythrocyte) 32 pg 25-34 Automated erythrocyte mean corpuscular hemoglobin concentration measurement ( mass/volume) 33 g/dL 32-36 Automated erythrocyte distribution width ratio 14.2 % 10.0-14.5 Automated blood platelet count (count/volume) 181 10*3/uL 130-400 Automated blood platelet mean volume measurement 9.3 [foz_us] 7.4-10.4 Automated blood neutrophils/100 leukocytes 70 % 42-75 Automated blood lymphocytes/100 leukocytes 21 % 12-44 Blood monocytes/100 leukocytes 9 % 0-12 Automated blood eosinophils/100 leukocytes 0 % 0-10 Automated blood basophils/100 leukocytes 0 % 0-10 Blood neutrophils automated count (number/volume) 3.9 10*3 1.8-7.8 Blood lymphocytes automated count (number/volume) 1.1 10*3 1.0-4.0 Blood monocytes automated count (number/volume) 0.5 10*3 0.0-1.0 Automated eosinophil count 0.0 10*3/uL 0.0-0.3 Automated blood basophil count (count/volume) 0.0 10*3/uL 0.0-0.1 PT panel in platelet poor plasma by coagulation assay - 05/31/17 16:30 Prothrombin time (PT) in platelet poor plasma by coagulation assay 15.6 s 12.2-14.7 INR in platelet poor plasma or blood by coagulation assay 1.2 0.8-1.4 Activated partial thromboplastin time (aPTT) in platelet poor plasma bycoagulation assay - 05/31/17 16:30 Activated partial thromboplastin time (aPTT) in platelet poor plasma bycoagulation assay 36 s 24-35 Fibrin D-dimer FEU measurement in platelet poor plasma (mass/volume) - 16:30 Fibrin D-dimer FEU measurement in platelet poor plasma (mass/volume) 1.18 ug/mL 0.00-0.49 Comprehensive metabolic panel - 05/31/17 16:30 Serum or plasma sodium measurement (moles/volume) 137 mmol/L 135-145 Serum or plasma potassium measurement (moles/volume) 4.2 mmol/L 3.6-5.0 Serum or plasma chloride measurement (moles/volume) 104 mmol/L 98-107 Carbon dioxide 25 mmol/L 21-32 Serum or plasma anion gap determination (moles/volume) 8 mmol/L 5-14 Serum or plasma urea nitrogen measurement (mass/volume) 19 mg/dL 7-18 Serum or plasma creatinine measurement (mass/volume) 1.56 mg/dL 0.60-1.30 Serum or plasma urea nitrogen/creatinine mass ratio 12 NRG Serum or plasma creatinine measurement with calculation of estimated glomerular filtration rate 42 NRG Serum or plasma glucose measurement (mass/volume) 114 mg/dL 70-105 Serum or plasma calcium measurement (mass/volume) 9.5 mg/dL 8.5-10.1 Serum or plasma total bilirubin measurement (mass/volume) 0.7 mg/dL 0.1-1.0 Serum or plasma alkaline phosphatase measurement (enzymatic activity/volume) 68 U/L 40-136 Serum or plasma aspartate aminotransferase measurement (enzymatic activity/ volume) 18 U/L 5-34 Serum or plasma alanine aminotransferase measurement (enzymatic activity/volume ) 11 U/L 0-55 Serum or plasma protein measurement (mass/volume) 7.5 g/dL 6.4-8.2 Serum or plasma albumin measurement (mass/volume) 4.1 g/dL 3.2-4.5 Serum or plasma troponin i.cardiac measurement (mass/volume) - 05/31/17 16:30 Serum or plasma troponin i.cardiac measurement (mass/volume) < ng/ mL <0.30 Complete urinalysis with reflex to culture - 05/31/17 22:16 Urine color determination YELLOW NRG Urine clarity determination CLEAR NRG Urine pH measurement by test strip 5 5-9 Specific gravity of urine by test strip 1.020 1.016- 1.022 Urine protein assay by test strip, semi-quantitative 2+ NEGATIVE Urine glucose detection by automated test strip NEGATIVE NEGATIVE Erythrocytes detection in urine sediment by light microscopy NEGATIVE NEGATIVE Urine ketones detection by automated test strip 2+ NEGATIVE Urine nitrite detection by test strip NEGATIVE NEGATIVE Urine total bilirubin detection by test strip NEGATIVE NEGATIVE Urine urobilinogen measurement by automated test strip (mass/volume) NORMAL NORMAL Urine leukocyte esterase detection by dipstick 1+ NEGATIVE Automated urine sediment erythrocyte count by microscopy (number/high power field) NONE NRG Automated urine sediment leukocyte count by microscopy (number/high power field ) [HPF] NRG Bacteria detection in urine sediment by light microscopy NEGATIVE NRG Crystals detection in urine sediment by light microscopy NONE NRG Casts detection in urine sediment by light microscopy PRESENT NRG Mucus detection in urine sediment by light microscopy LARGE NRG Complete urinalysis with reflex to culture NO NRG Hyaline casts detection in urine sediment by light microscopy 10-25 NRG Coarse granular casts detection in urine sediment by light microscopy 0-2 NRG Complete blood count (CBC) with automated white blood cell (WBC) differential - 06/01/17 05:35 Blood leukocytes automated count (number/volume) 4.6 10*3/uL 4.3-11.0 Blood erythrocytes automated count (number/volume) 3.25 10*6/uL 4.35-5.85 Venous blood hemoglobin measurement (mass/volume) 10.6 g/dL 13.3-17.7 Blood hematocrit (volume fraction) 32 % 40-54 Automated erythrocyte mean corpuscular volume 99 [foz_us] 80-99 Automated erythrocyte mean corpuscular hemoglobin (mass per erythrocyte) 33 pg 25-34 Automated erythrocyte mean corpuscular hemoglobin concentration measurement ( mass/volume) 33 g/dL 32-36 Automated erythrocyte distribution width ratio 14.2 % 10.0-14.5 Automated blood platelet count (count/volume) 133 10*3/uL 130-400 Automated blood platelet mean volume measurement 10.2 [foz_us] 7.4-10.4 Automated blood neutrophils/100 leukocytes 67 % 42-75 Automated blood lymphocytes/100 leukocytes 22 % 12-44 Blood monocytes/100 leukocytes 9 % 0-12 Automated blood eosinophils/100 leukocytes 1 % 0-10 Automated blood basophils/100 leukocytes 0 % 0-10 Blood neutrophils automated count (number/volume) 3.1 10*3 1.8-7.8 Blood lymphocytes automated count (number/volume) 1.0 10*3 1.0-4.0 Blood monocytes automated count (number/volume) 0.4 10*3 0.0-1.0 Automated eosinophil count 0.1 10*3/uL 0.0-0.3 Automated blood basophil count (count/volume) 0.0 10*3/uL 0.0-0.1 Comprehensive metabolic panel - 06/01/17 05:35 Serum or plasma sodium measurement (moles/volume) 136 mmol/L 135-145 Serum or plasma potassium measurement (moles/volume) 4.1 mmol/L 3.6-5.0 Serum or plasma chloride measurement (moles/volume) 108 mmol/L 98-107 Carbon dioxide 19 mmol/L 21-32 Serum or plasma anion gap determination (moles/volume) 9 mmol/L 5-14 Serum or plasma urea nitrogen measurement (mass/volume) 19 mg/dL 7-18 Serum or plasma creatinine measurement (mass/volume) 1.07 mg/dL 0.60-1.30 Serum or plasma urea nitrogen/creatinine mass ratio 18 NRG Serum or plasma creatinine measurement with calculation of estimated glomerular filtration rate > NRG Serum or plasma glucose measurement (mass/volume) 87 mg/dL 70-105 Serum or plasma calcium measurement (mass/volume) 8.5 mg/dL 8.5-10.1 Serum or plasma total bilirubin measurement (mass/volume) 0.6 mg/dL 0.1-1.0 Serum or plasma alkaline phosphatase measurement (enzymatic activity/volume) 62 U/L 40-136 Serum or plasma aspartate aminotransferase measurement (enzymatic activity/ volume) 18 U/L 5-34 Serum or plasma alanine aminotransferase measurement (enzymatic activity/volume ) 10 U/L 0-55 Serum or plasma protein measurement (mass/volume) 6.3 g/dL 6.4-8.2 Serum or plasma albumin measurement (mass/volume) 3.4 g/dL 3.2-4.5 Serum or plasma C reactive protein measurement (mass/volume) - 06/01/17 05:35 Serum or plasma C reactive protein measurement (mass/volume) 0.15 mg /dL 0.00-0.50 Erythrocyte sedimentation rate by westergren method - 06/01/17 05:35 Erythrocyte sedimentation rate by westergren method 17 mm 0-30 Complete blood count (CBC) with automated white blood cell (WBC) differential - 06/09/17 13:45 Blood leukocytes automated count (number/volume) 7.2 10*3/uL 4.3-11.0 Blood erythrocytes automated count (number/volume) 3.68 10*6/uL 4.35-5.85 Venous blood hemoglobin measurement (mass/volume) 11.9 g/dL 13.3-17.7 Blood hematocrit (volume fraction) 36 % 40-54 Automated erythrocyte mean corpuscular volume 99 [foz_us] 80-99 Automated erythrocyte mean corpuscular hemoglobin (mass per erythrocyte) 32 pg 25-34 Automated erythrocyte mean corpuscular hemoglobin concentration measurement ( mass/volume) 33 g/dL 32-36 Automated erythrocyte distribution width ratio 14.3 % 10.0-14.5 Automated blood platelet count (count/volume) 192 10*3/uL 130-400 Automated blood platelet mean volume measurement 9.9 [foz_us] 7.4-10.4 Automated blood neutrophils/100 leukocytes 68 % 42-75 Automated blood lymphocytes/100 leukocytes 21 % 12-44 Blood monocytes/100 leukocytes 10 % 0-12 Automated blood eosinophils/100 leukocytes 0 % 0-10 Automated blood basophils/100 leukocytes 0 % 0-10 Blood neutrophils automated count (number/volume) 5.0 10*3 1.8-7.8 Blood lymphocytes automated count (number/volume) 1.5 10*3 1.0-4.0 Blood monocytes automated count (number/volume) 0.7 10*3 0.0-1.0 Automated eosinophil count 0.0 10*3/uL 0.0-0.3 Automated blood basophil count (count/volume) 0.0 10*3/uL 0.0-0.1 PT panel in platelet poor plasma by coagulation assay - 06/09/17 14:15 Prothrombin time (PT) in platelet poor plasma by coagulation assay 18.1 s 12.2-14.7 INR in platelet poor plasma or blood by coagulation assay 1.5 0.8-1.4 Activated partial thromboplastin time (aPTT) in platelet poor plasma bycoagulation assay - 06/09/17 14:15 Activated partial thromboplastin time (aPTT) in platelet poor plasma bycoagulation assay 30 s 24-35 Comprehensive metabolic panel - 06/09/17 14:40 Serum or plasma sodium measurement (moles/volume) 134 mmol/L 135-145 Serum or plasma potassium measurement (moles/volume) 4.6 mmol/L 3.6-5.0 Serum or plasma chloride measurement (moles/volume) 102 mmol/L 98-107 Carbon dioxide 27 mmol/L 21-32 Serum or plasma anion gap determination (moles/volume) 5 mmol/L 5-14 Serum or plasma urea nitrogen measurement (mass/volume) 14 mg/dL 7-18 Serum or plasma creatinine measurement (mass/volume) 0.97 mg/dL 0.60-1.30 Serum or plasma urea nitrogen/creatinine mass ratio 14 NRG Serum or plasma creatinine measurement with calculation of estimated glomerular filtration rate > NRG Serum or plasma glucose measurement (mass/volume) 102 mg/dL 70-105 Serum or plasma calcium measurement (mass/volume) 8.8 mg/dL 8.5-10.1 Serum or plasma total bilirubin measurement (mass/volume) 0.8 mg/dL 0.1-1.0 Serum or plasma alkaline phosphatase measurement (enzymatic activity/volume) 59 U/L 40-136 Serum or plasma aspartate aminotransferase measurement (enzymatic activity/ volume) 14 U/L 5-34 Serum or plasma alanine aminotransferase measurement (enzymatic activity/volume ) 13 U/L 0-55 Serum or plasma protein measurement (mass/volume) 6.8 g/dL 6.4-8.2 Serum or plasma albumin measurement (mass/volume) 3.7 g/dL 3.2-4.5 Magnesium - 06/09/17 14:40 Magnesium 1.6 mg/dL 1.8-2.4 Serum or plasma C reactive protein measurement (mass/volume) - 06/09/17 14:40 Serum or plasma C reactive protein measurement (mass/volume) 0.03 mg /dL 0.00-0.50 Complete urinalysis with reflex to culture - 06/09/17 14:54 Urine color determination YELLOW NRG Urine clarity determination CLEAR NRG Urine pH measurement by test strip 5 5-9 Specific gravity of urine by test strip 1.005 1.016- 1.022 Urine protein assay by test strip, semi-quantitative 1+ NEGATIVE Urine glucose detection by automated test strip NEGATIVE NEGATIVE Erythrocytes detection in urine sediment by light microscopy 1+ NEGATIVE Urine ketones detection by automated test strip 1+ NEGATIVE Urine nitrite detection by test strip NEGATIVE NEGATIVE Urine total bilirubin detection by test strip NEGATIVE NEGATIVE Urine urobilinogen measurement by automated test strip (mass/volume) NORMAL NORMAL Urine leukocyte esterase detection by dipstick NEGATIVE NEGATIVE Automated urine sediment erythrocyte count by microscopy (number/high power field) NONE NRG Automated urine sediment leukocyte count by microscopy (number/high power field ) NONE NRG Bacteria detection in urine sediment by light microscopy NEGATIVE NRG Squamous epithelial cells detection in urine sediment by light microscopy RARE NRG Crystals detection in urine sediment by light microscopy NONE NRG Casts detection in urine sediment by light microscopy NONE NRG Mucus detection in urine sediment by light microscopy NEGATIVE NRG Complete urinalysis with reflex to culture NO NRG Whole blood basic metabolic panel - 10/16/17 08:00 Serum or plasma sodium measurement (moles/volume) 140 mmol/L 135-145 Serum or plasma potassium measurement (moles/volume) 3.9 mmol/L 3.6-5.0 Serum or plasma chloride measurement (moles/volume) 105 mmol/L 98-107 Carbon dioxide 28 mmol/L 21-32 Serum or plasma anion gap determination (moles/volume) 7 mmol/L 5-14 Serum or plasma urea nitrogen measurement (mass/volume) 16 mg/dL 7-18 Serum or plasma creatinine measurement (mass/volume) 1.20 mg/dL 0.60-1.30 Serum or plasma urea nitrogen/creatinine mass ratio 13 NRG Serum or plasma creatinine measurement with calculation of estimated glomerular filtration rate 57 NRG Serum or plasma glucose measurement (mass/volume) 102 mg/dL 70-105 Serum or plasma calcium measurement (mass/volume) 9.3 mg/dL 8.5-10.1 Encounters ACCT No. Visit Date/Time Discharge Status Pt. Type Provider Facility Loc./Unit Complaint [id number] 10/16/2017 07:47:00 10/16/2017 23:59:59 CLS Outpatient ALY BAKER MD [facility] RAD R91.8 [id number] 07/03/2017 11:44:00 07/03/2017 23:59:59 CLS Outpatient ALY BAKER MD [facility] RAD RT LUNG MASS [id number] 06/15/2017 09:45:00 06/15/2017 23:59:59 CLS Outpatient EDGARDO TY APRN [facility] RAD LUNG MASS [id number] 06/09/2017 13:20:00 06/09/2017 16:32:00 DIS Emergency ABHI MOCK MD [facility] ER MIGRANE [id number] 06/07/2017 14:30:00 06/07/2017 23:59:59 CLS Preadmit JAMMIE BOLTON [facility] RAD HEADACHE R41.82 [id number] 05/31/2017 18:20:00 06/02/2017 14:10:00 DIS Inpatient RAJI CHAWLA MD [facility] 4TH TIA [id number] 05/29/2017 11:01:00 05/29/2017 23:59:59 CLS Outpatient EDGARDO TY APRN [facility] RAD RT MORMONISM PAIN [id number] 02/22/2017 13:46:00 02/22/2017 23:59:59 CLS Outpatient RAS GONZALES MD [facility] CARD CAD I25.10,HTN I10 [id number] 10/25/2015 08:11:00 10/25/2015 23:59:59 CLS Outpatient RAS GONZALES MD [facility] CARD AF,CAD,HTN,MIXED HYPERLIPIDEMIA,PVD [id number] 10/07/2015 13:42:00 10/07/2015 23:59:59 CLS Outpatient RAS GONZALES MD [facility] CARD AF NON TRAMATIC TEAR OF SKIN [id number] 06/21/2015 20:56:00 06/23/2015 09:36:00 DIS Inpatient RAJI CHAWLA MD [facility] 4TH FECAL IMPACTION,ENDOLEAK OF ANEURYSM,ANEMIA, [id number] 06/09/2015 09:33:00 06/09/2015 23:59:59 CLS Outpatient ALY BAKER MD [facility] RT AAA [id number] 05/06/2015 09:07:00 05/06/2015 23:59:59 CLS Outpatient RAJI CHAWLA MD [facility] RAD DIZZINESS, GAIT ABNORMALITIY, MILD MEMORY LOSS [id number] 04/22/2014 07:27:00 04/22/2014 23:59:59 CLS Outpatient RASHAD DONATO [facility] CARD AF,CAD,HTN, HLP [id number] 04/21/2014 07:34:00 04/21/2014 23:59:59 CLS Outpatient RASHAD DONATO [facility] CARD AF,CAD,HTN, HLP [id number] 10/22/2013 10:03:00 10/22/2013 23:59:59 CLS Outpatient RASTA DANG, BETZY Whaley [facility] RAD DIARRHEA,ABD PAIN [id number] 06/22/2015 01:20:00 Document Registration [id number] 10/07/2014 07:48:00 Document Registration [id number] 09/25/2012 07:16:00 Document Registration [id number] 09/24/2012 10:02:00 Document Registration [id number] 08/08/2012 09:56:00 Document Registration [id number] 08/04/2011 09:00:00 Document Registration [id number] 05/05/2011 08:31:00 Document Registration [id number] 04/25/2011 08:45:00 Document Registration [id number] 04/09/2011 08:37:00 Document Registration [id number] 04/20/2010 08:17:00 Document Registration
[2017-10-28] MEDS: ASPIRIN E.C. 81 MG (ECOTRIN) TAB PO SCH (08:11)
[2017-10-28] MEDS: ENALAPRIL 2.5 MG (VASOTEC) TAB PO SCH ×2 (08:11→18:23)
[2017-10-28 08:20] VITALS: BP 126/58
--- OUTSIDE RECORDS SUMMARY | 2017-10-28 09:59 | XMS REPORT | Continuity of Care Document ---
Author Author [facility] Organization [facility] Address Unknown Phone Unavailable Allergies Active Description Code Type Severity Reaction Onset Reported/Identified Relationship to Patient Clinical Status Yes doxycycline [id number] Drug Allergy Unknown N/A 12/23/2008 Yes loratadine [id number] Drug Allergy Unknown N/A 12/23/2008 Yes loratadine [id number] Drug Allergy Moderate HEADACHE 06/22/2015 Yes hydrocodone [id number] Drug Allergy Unknown N/A 06/22/2015 Yes loratadine [id number] Drug Allergy Unknown HEADACHE 06/22/2015 Yes doxycycline [id number] Drug Allergy Severe DIZZINESS/NAUSE 06/01/2017 Yes hydrocodone [id number] Drug Allergy Moderate DIZZINESS 06/01/2017 Medications There [...] NOS 10/07/2014 Ot 414.01 CORONARY ATHEROSCLEROSIS OF [place] CORON 10/07/2014 Ot 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 [...] 06/22/2015 Ot 401.9 06/22/2015 Ot 414.00 06/22/2015 RSATA DANG, BETZY Whaley Ot 787.91 06/22/2015 BETZY [...] UNSPECIFIED 06/23/2015 RAJI CHAWLA MD Ot T85.698D [facility] COMPL OF INTERNAL PROSTH DEV/GRFT, 07/02/2015 [...] MD Ot I25.10 ATHSCL HEART DISEASE OF [place] CORONARY 12/07/2015 RAS GONZALES MD Ot I48.0 [...] MD Ot I25.10 ATHSCL HEART DISEASE OF [place] CORONARY 02/22/2017 RAS GONZALES MD Ot I48.0 PAROXYSMAL ATRIAL FIBRILLATION 02/22/2017 RAS GONZALES MD Ot I73.9 PERIPHERAL VASCULAR DISEASE, UNSPECIFIED 02/23/2017 RAS GONZALES MD Ot E78.2 MIXED HYPERLIPIDEMIA 02/23/2017 RAS GONZALES MD Ot I10 ESSENTIAL (PRIMARY) HYPERTENSION 02/23/2017 RAS GONZALES MD Ot I25.10 ATHSCL HEART DISEASE OF [place] CORONARY 02/23/2017 RAS GONZALES MD Ot R06.02 SHORTNESS OF BREATH 02/26/2017 RAS GONZALES MD Ot E78.2 MIXED HYPERLIPIDEMIA 02/26/2017 RAS GONZALES MD Ot I10 ESSENTIAL (PRIMARY) HYPERTENSION 02/26/2017 RAS GONZALES MD Ot I25.10 ATHSCL HEART DISEASE OF [place] CORONARY 02/26/2017 RAS GONZALES MD Ot R06.02 SHORTNESS OF BREATH 02/26/2017 RAS GONZALES MD Ot E78.2 MIXED HYPERLIPIDEMIA 02/26/2017 RAS GONZALES MD J Ot I10 ESSENTIAL (PRIMARY) HYPERTENSION 02/26/2017 RAS GONZALES MD J Ot I25.10 ATHSCL HEART DISEASE OF [place] CORONARY 02/26/2017 RAS GONZALES MD J Ot R06.02 SHORTNESS OF BREATH 02/26/2017 RAS GONZALES MD Ot E78.2 MIXED HYPERLIPIDEMIA 02/26/2017 RAS GONZALES MD J Ot I10 ESSENTIAL (PRIMARY) HYPERTENSION 02/26/2017 RAS GONZALES MD Ot I25.10 ATHSCL HEART DISEASE OF [place] CORONARY 02/26/2017 RAS GONZALES MD Ot R06.02 SHORTNESS OF BREATH 02/26/2017 RAS GONZALES MD Ot E78.2 MIXED HYPERLIPIDEMIA 02/26/2017 RAS GONZALES MD J Ot I10 ESSENTIAL (PRIMARY) HYPERTENSION 02/26/2017 RAS GONZALES MD Ot I25.10 ATHSCL HEART DISEASE OF [place] CORONARY 02/26/2017 RAS GONZALES MD Ot R06.02 SHORTNESS OF BREATH 02/26/2017 RAS GONZALES MD Ot E78.2 MIXED HYPERLIPIDEMIA 02/26/2017 RAS GONZALES MD J Ot I10 ESSENTIAL (PRIMARY) HYPERTENSION 02/26/2017 RAS GONZALES MD Ot I25.10 ATHSCL HEART DISEASE OF [place] CORONARY 02/26/2017 RAS GONZALES MD Ot R06.02 SHORTNESS OF BREATH 02/26/2017 RAS GONZALES MD Ot E78.2 MIXED HYPERLIPIDEMIA 02/26/2017 RAS GONZALES MD J Ot I10 ESSENTIAL (PRIMARY) HYPERTENSION 02/26/2017 RAS GONZALES MD Ot I25.10 ATHSCL HEART DISEASE OF [place] CORONARY 02/26/2017 RAS GONZALES MD J Ot R06.02 SHORTNESS OF BREATH 03/16/2017 RAS GONZALES MD Ot E78.2 MIXED HYPERLIPIDEMIA 03/16/2017 RAS GONZALES MD J Ot I10 ESSENTIAL (PRIMARY) HYPERTENSION 03/16/2017 RAS GONZALES MD Ot I25.10 ATHSCL HEART DISEASE OF [place] CORONARY 03/16/2017 RAS GONZALES MD Ot R06.02 SHORTNESS OF BREATH 03/26/2017 RAS GONZALES MD Ot E78.2 MIXED HYPERLIPIDEMIA 03/26/2017 RAS GONZALES MD Ot I10 ESSENTIAL (PRIMARY) HYPERTENSION 03/26/2017 RAS GONZALES MD Ot I25.10 ATHSCL HEART DISEASE OF [place] CORONARY 03/26/2017 RAS GONZALES MD Ot R06.02 [...] MD Ot I25.10 ATHSCL HEART DISEASE OF [place] CORONARY 05/29/2017 RAS GONZALES MD Ot I48.0 PAROXYSMAL ATRIAL FIBRILLATION 05/29/2017 RAS GONZALES MD Ot I73.9 PERIPHERAL VASCULAR DISEASE, UNSPECIFIED 05/29/2017 RAS GONZALES MD Ot E78.2 MIXED HYPERLIPIDEMIA 05/29/2017 RAS GONZALES MD Ot I10 ESSENTIAL (PRIMARY) HYPERTENSION 05/29/2017 RAS GONZALES MD Ot I25.10 ATHSCL HEART DISEASE OF [place] CORONARY 05/29/2017 RAS GONZALES MD Ot R06.02 [...] MD Ot I25.10 ATHSCL HEART DISEASE OF [place] CORONARY 06/02/2017 RAJI CHAWLA MD Ot I48.2 CHRONIC ATRIAL FIBRILLATION 06/02/2017 RAJI CHAWLA MD Ot 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 06/02/2017 RAJI CHAWLA MD Ot Z79.01 EXPERIMENTAL WELDER (CURRENT) USE OF ANTICOAGULANT 06/02/2017 RAJI CHAWLA MD Ot Z79.82 EXPERIMENTAL WELDER (CURRENT) USE OF ASPIRIN 06/02/2017 RAJI CHAWLA MD Ot Z79.899 OTHER NURSING HOME (CURRENT) DRUG THERAPY 06/02/2017 RAJI CHAWLA MD [...] MD Ot I25.10 ATHSCL HEART DISEASE OF [place] CORONARY 06/02/2017 RAJI CHAWLA MD Ot I48.2 CHRONIC ATRIAL FIBRILLATION 06/02/2017 RAJI CHAWLA MD Ot 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 06/02/2017 RAJI CHAWLA MD Ot Z79.01 NURSING HOME (CURRENT) USE OF ANTICOAGULANT 06/02/2017 RAJI CHAWLA MD Ot Z79.82 EXPERIMENTAL WELDER (CURRENT) USE OF ASPIRIN 06/02/2017 RAJI CHAWLA MD Ot Z79.899 OTHER NURSING HOME (CURRENT) DRUG THERAPY 06/02/2017 RAJI CHAWLA MD [...] MD Ot I25.10 ATHSCL HEART DISEASE OF [place] CORONARY 06/09/2017 ABHI MOCK MD Ot I48.91 UNSPECIFIED ATRIAL FIBRILLATION 06/09/2017 ABHI MOCK MD Ot N40.0 BENIGN PROSTATIC HYPERPLASIA WITHOUT LOW 06/09/2017 ABHI MOCK MD Ot R51 HEADACHE 06/09/2017 ABHI MOCK MD Ot Z79.01 EXPERIMENTAL WELDER (CURRENT) USE OF ANTICOAGULANT 06/09/2017 ABHI MOCK MD Ot Z79.82 NURSING HOME (CURRENT) USE OF ASPIRIN 06/09/2017 ABHI MOCK [...] MD Ot I25.10 ATHSCL HEART DISEASE OF [place] CORONARY 06/15/2017 ABHI MOCK MD Ot I48.91 UNSPECIFIED ATRIAL FIBRILLATION 06/15/2017 ABHI MOCK MD Ot N40.0 BENIGN PROSTATIC HYPERPLASIA WITHOUT LOW 06/15/2017 ABHI MOCK MD Ot R51 HEADACHE 06/15/2017 ABHI MOCK MD Ot Z79.01 EXPERIMENTAL WELDER (CURRENT) USE OF ANTICOAGULANT 06/15/2017 ABHI MOCK MD Ot Z79.82 NURSING HOME (CURRENT) USE OF ASPIRIN 06/15/2017 ABHI MOCK [...] OF AORTOCORONARY BYPASS GRAFT 06/19/2017 EDGARDO TY ROD POINTER Ot R51 HEADACHE 06/26/2017 EDGARDO TY ROD POINTER Ot R51 HEADACHE 07/02/2017 Ot 272.4 HYPERLIPIDEMIA [...] GIDDINESS 07/02/2017 CAMMY DANG, RAJI Marcos Ot 780.4 DIZZINESS AND GIDDINESS 07/02/2017 CAMMY DANG, RAJI Marcos Ot 781.2 ABNORMALITY OF GAIT 07/02/2017 SAMUEL DANG, ALY Arora Ot I71.4 ABDOMINAL AORTIC ANEURYSM, 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 07/02/2017 RAS GONZALES MD Ot I48.91 UNSPECIFIED ATRIAL FIBRILLATION 07/02/2017 RAS GONZALES MD Ot E78.2 MIXED HYPERLIPIDEMIA 07/02/2017 RAS GONZALES MD Ot I10 ESSENTIAL (PRIMARY) HYPERTENSION 07/02/2017 RAS GONZALES MD Ot I25.10 ATHSCL HEART DISEASE OF [place] CORONARY 07/02/2017 RAS GONZALES MD Ot I48.0 PAROXYSMAL ATRIAL FIBRILLATION 07/02/2017 RAS GONZALES MD Ot I73.9 PERIPHERAL VASCULAR DISEASE, UNSPECIFIED 07/02/2017 RAS GONZALES MD Ot E78.2 MIXED HYPERLIPIDEMIA 07/02/2017 RAS GONZALES MD Ot I10 ESSENTIAL (PRIMARY) HYPERTENSION 07/02/2017 RAS GONZALES MD Ot I25.10 ATHSCL HEART DISEASE OF [place] CORONARY 07/02/2017 RAS GONZALES MD Ot R06.02 SHORTNESS OF BREATH 07/02/2017 EDGARDO TY APRN Ot R51 HEADACHE 07/02/2017 EDGARDO TY ROD POINTER Ot R91.8 OTHER NONSPECIFIC ABNORMAL FINDING OF [place] 07/04/2017 ALY BAKER MD Ot R91.1 SOLITARY PULMONARY NODULE 07/04/2017 ALY BAKER MD Ot Z85.118 PERSONAL HISTORY OF MALIGNANT NEOPLASM O 07/09/2017 EDGARDO TY ROD POINTER Ot R91.8 OTHER NONSPECIFIC ABNORMAL FINDING OF [...] MD Ot I25.10 ATHSCL HEART DISEASE OF [place] CORONARY 10/17/2017 ALY BAKER MD Ot I51.7 [...] Status Pt. Type Provider Facility Loc./Unit Complaint [id number] 10/16/2017 07:47:00 10/16/2017 23:59:59 CLS Outpatient ALY BAKER MD [facility] RAD R91.8 [id number] 07/03/2017 11:44:00 07/03/2017 23:59:59 CLS Outpatient ALY BAKER MD [facility] RAD RT LUNG MASS [id number] 06/15/2017 09:45:00 06/15/2017 23:59:59 CLS Outpatient EDGARDO TY APRN [facility] RAD LUNG MASS [id number] 06/09/2017 13:20:00 06/09/2017 16:32:00 DIS Emergency ABHI MOCK MD [facility] ER MIGRANE [id number] 06/07/2017 14:30:00 06/07/2017 23:59:59 CLS Preadmit JAMMIE BOLTON [facility] RAD HEADACHE R41.82 [id number] 05/31/2017 18:20:00 06/02/2017 14:10:00 DIS Inpatient RAJI CHAWLA MD [facility] 4TH TIA [id number] 05/29/2017 11:01:00 05/29/2017 23:59:59 CLS Outpatient EDGARDO TY APRN [facility] RAD RT JAIN PAIN [id number] 02/22/2017 13:46:00 02/22/2017 23:59:59 CLS Outpatient RAS GONZALES MD [facility] CARD CAD I25.10,HTN I10 [id number] 10/25/2015 08:11:00 10/25/2015 23:59:59 CLS Outpatient RAS GONZALES MD [facility] CARD AF,CAD,HTN,MIXED HYPERLIPIDEMIA,PVD [id number] 10/07/2015 13:42:00 10/07/2015 23:59:59 CLS Outpatient RAS GONZALES MD [facility] CARD AF NON TRAMATIC TEAR OF SKIN [id number] 06/21/2015 20:56:00 06/23/2015 09:36:00 DIS Inpatient RAJI CHAWLA MD [facility] 4TH FECAL IMPACTION,ENDOLEAK OF ANEURYSM,ANEMIA, [id number] 06/09/2015 09:33:00 06/09/2015 23:59:59 CLS Outpatient ALY BAKER MD [facility] RT AAA [id number] 05/06/2015 09:07:00 05/06/2015 23:59:59 CLS Outpatient RAJI CHAWLA MD [facility] RAD DIZZINESS, GAIT ABNORMALITIY, MILD MEMORY LOSS [id number] 04/22/2014 07:27:00 04/22/2014 23:59:59 CLS Outpatient RASHAD DONATO [facility] CARD AF,CAD,HTN, HLP [id number] 04/21/2014 07:34:00 04/21/2014 23:59:59 CLS Outpatient RASHAD DONATO [facility] CARD AF,CAD,HTN, HLP [id number] 10/22/2013 10:03:00 10/22/2013 23:59:59 CLS Outpatient RASTA DANG, BETZY Whaley [facility] RAD DIARRHEA,ABD PAIN [id number] 06/22/2015 01:20:00 Document Registration [id number] 10/07/2014 07:48:00 Document Registration [id number] 09/25/2012 07:16:00 Document Registration [id number] 09/24/2012 10:02:00 Document Registration [id number] 08/08/2012 09:56:00 Document Registration [id number] 08/04/2011 09:00:00 Document Registration [id number] 05/05/2011 08:31:00 Document Registration [id number] 04/25/2011 08:45:00 Document Registration [id number] 04/09/2011 08:37:00 Document Registration [id number] 04/20/2010 08:17:00 Document Registration
[2017-10-28 12:00] VITALS: BP 119/56
--- NOTE | 2017-10-28 12:25 | Progress Note-Hospitalist ---
Subjective HPI/CC On Admission Date Seen by Provider: Oct 28, 2017 Time Seen by Provider: 11:30 This is an 87-year-old white male who has had increased shortness of breath over the last day or 2. He denies having any PND or orthopnea. This morning he felt like the world was spinning and he got very dizzy and became pale and presented to the emergency room with similar complaints. The patient is well known to me and appears slightly puffy. Cardiac history is reviewed. He had a similar episode in the fall of 2016 and was diagnosed with a TIA or a small CVA. Because of his pacemaker MRI is not possible. Subjective/Events-last exam Patient is feeling much better today. He has much less shortness of breath and no syncope or dizziness. very anxious to go home. Objective Exam Vital Signs Vital Signs Date Time Temp Pulse Resp B/P (MAP) Pulse Ox O2 Delivery O2 Flow Rate FiO2 10/27/17 09:05 97.7 72 12 143/73 (96) 97 Room Air Capillary Refill : Less Than 3 Seconds General Appearance: No Apparent Distress, WD/WN HEENT: Normal ENT Inspection Neck: Supple, JVD Respiratory: Lungs Clear, Normal Breath Sounds, No Accessory Muscle Use, No Respiratory Distress Cardiovascular: Regular Rate, Rhythm, Systolic Murmur Gastrointestinal: Soft Neurologic/Psychiatric: Alert, Oriented x3, No Motor/Sensory Deficits, Normal Mood/Affect Skin: Normal Color, Warm/Dry Results/Procedures Lab Laboratory Tests 10/28/17 05:58 Assessment/Plan Assessment and Plan Assess & Plan/Chief Complaint 1. Subsegmental pulmonary emboli-on Xarelto-may require vena caval filter- although the patient is so much better after diuresis I suspect his shortness of breath was primarily secondary to the fluid overload or congestive failure echocardiogram is pending 2. Possible increased congestive heart failure as evidenced by pleural effusions and dyspnea-we'll repeat echo-Dr. Stratton to address before discharge 3. History of November atrial fibrillation with sick sinus syndrome status post pacemaker placement 4. Valvular heart disease possible increased mitral valve regurgitation as evidenced by possible witt wave 5. History of abdominal aneurysm with repair by Dr. Jack no evidence of leak 6. Peripheral vascular disease- both of t extremities and carotid arteries 7. Anemia we'll check iron studies B12 and Hemoccult stools, will also check for re-tic rate-the patient has been current on his colonoscopies and other endoscopies 8. Neutropenia new- may require hematology consult-resolved on today's CBC BETZY MAGDALENO MD Oct 28, 2017 12:25 pm
--- NOTE | 2017-10-28 14:28 | Progress Note-Cardiology ---
Cardiology SOAP Progress Note Subjective: Shortness of breath much improved. No palp or cp or syncope. Leg swelling much improved Objective: I&O/Vital Signs Vital Sign - Last 12Hours 10/28/17 10/28/17 10/28/17 10/28/17 04:44 07:00 08:20 08:38 Temp 98.2 97.7 Pulse 69 70 69 Resp 20 20 B/P (MAP) 126/60 (82) 126/58 (80) Pulse Ox 94 94 O2 Delivery Room Air Room Air Room Air 10/28/17 13:00 Pulse 69 Intake and Output 10/28/17 00:00 Intake Total 1420 ml Output Total 1950 ml Balance -530 ml Weight (Pounds): 172 Weight (Ounces): 9.0 Weight (Calculated Kilograms): 78.052638 Constitutional: AAO x 3, well-developed, well-nourished Respiratory: No accessory muscle use, other (Good bilat air entry, but diminished at the bases) Cardiovascular: regular rate-rhythm, systolic murmur (2/6 MSM at card base) Gastrointestional: No tender, soft, No guarding, No rebound, audible bowel sounds Extremities: No pedal edema, No clubbing, No cyanosis Neurologic/Psychiatric: grossly intact, power is 5/5 both on sides Skin: No rash on exposed areas, No ulcerations on exposed areas Results/Procedures: Labs Laboratory Tests 10/27/17 15:30: Red Blood Count 3.37L, Absolute Reticulocyte Count 64, Percent Reticulocyte Count 1.91, Thyroid Stimulating Hormone (TSH) 1.51 10/28/17 05:58: Red Blood Count 3.02L, White Blood Count 5.4, Hemoglobin 9.9L, Hematocrit 30L, Mean Corpuscular Volume 100H, Mean Corpuscular Hemoglobin 33, Mean Corpuscular Hemoglobin Concent 33, Red Cell Distribution Width 13.6, Platelet Count 155, Mean Platelet Volume 10.1, Neutrophils (%) (Auto) 70, Lymphocytes (%) (Auto) 20 , Monocytes (%) (Auto) 9, Eosinophils (%) (Auto) 1, Basophils (%) (Auto) 0, Neutrophils # (Auto) 3.8, Lymphocytes # (Auto) 1.1, Monocytes # (Auto) 0.5, Eosinophils # (Auto) 0.1, Basophils # (Auto) 0.0, Sodium Level 139, Potassium Level 4.1, Chloride Level 103, Carbon Dioxide Level 27, Anion Gap 9, Blood Urea Nitrogen 22H, Creatinine 1.29, Estimat Glomerular Filtration Rate 53, BUN/ Creatinine Ratio 17, Glucose Level 104, Calcium Level 9.5, Total Bilirubin 0.6, Aspartate Amino Transf (AST/SGOT) 18, Alanine Aminotransferase (ALT/SGPT) 16, Alkaline Phosphatase 56, Total Protein 6.4, Albumin 3.7 Laboratory Tests 10/27/17 09:10 10/28/17 05:58 A/P: Assessment: Vertigo and dizziness, improved Pulm emboli of unknown age: small pulmonary emboli in a few sub-segmental branches of the left lower lobe on CT angio of the chest on 10/27/17 Cannot exclude L-sided pneumonia: mildly increasing consolidation in the left lower lobe on CT angio of the chest on 10/27/17. [facility] Bilateral pleural effusions and peripheral edema; CHF suspected Acute on chronic systolic and diastolic congestive heart failure; last echocardiogram done 10/28/17 revealed EF 50-55 percent. Left atrium mild dilated. Mild to moderate tricuspid and mitral regurgitation, PA pressure 25mmHg. Coronary artery disease status post CABG 5 in 1996 with last cardiac catheterization was in September 2014 showed severe [place] coronary artery disease, patent GUAN to LAD, one vein graft bifurcating into 5 branches, the branches to the first and second obtuse marginal branches and PDA and PLV were patent. The vein graft to the diagonal artery has severe stenosis at the anastomosis point, the artery is fairly small not amenable to intervention with small vessel disease distally. Normal left ventricular size and function, ejection fraction 60 percent Stress test of 10/25/15 showed diaphragmatic attenuation with typical male pattern no sig ischemia or infarction Paroxysmal atrial fibrillation/ sick sinus syndrome; status post permanent pacemaker placement functioning normally on evJul [address] Squires's Chronic oral anticoagulation with rivaroxaban Hypertension Hyperlipidemia Abdominal aortic aneurysm, infrarenal, measuring 4.3 x 4.5 cm, monitor by [facility]; has had endovascular repair of the aneurysm with Dr. Js Lakhani in May 2015 using [id number] x166 Endurant main body inserted through right femoral access and 16 x 13 x 124 Endurant contralateral limb via the left femoral access with balloon angioplasty to the right and left common iliac arteries. PAD with BEKA 0.9 on the right and 0.72 on the left; monitored by Dr Squires and [facility] H/o carotid artery stenosis and R CEA; monitored by [facility] Orthostatic dizziness, chronic. Plan: * Reduce diuretics * Continue rivaroxaban for a h/o a fib and pulm emboli * Eval and treat anemia as needed ([facility]) * Eval for pneumonia ([facility]) * Monitor labs * Repeat echo * Pulm emboli small and probably chronic. IVC filter probably not needed. He will discuss this issue with his director cpg, VINOD Francis MD FACP [facility] Oct 28, 2017 14:28
[2017-10-28 16:00] VITALS: BP 135/63
[2017-10-28] MEDS: RIVAROXABAN 20 MG TABLET (XARELTO) PO SCH (18:23)
[2017-10-28] MEDS ORDERED: ASPI-983 PO (18:59)
[2017-10-28] MEDS ORDERED: PANT40TA3 PO (19:12)
[2017-10-28] MEDS ORDERED: PANTOPRAZOLE 40 MG (PROTONIX) TAB PO PRN (19:30)
[2017-10-28] MEDS ORDERED: ALPRAZolam 0.5 MG (XANAX) TAB PO PRN (19:30)
[2017-10-28 20:00] VITALS: BP 136/63
[2017-10-28] MEDS: ATORVASTATIN 40 MG (LIPITOR) TABLET PO SCH (20:52)
[2017-10-28] MEDS: NEBIVOLOL 5 MG TAB (BYSTOLIC) PO SCH (20:52)
[2017-10-28] MEDS: TAMSULOSIN 0.4 MG (FLOMAX) CAP PO SCH (20:52)
[2017-10-29] VITALS: BP 117/57
[2017-10-29 04:00] VITALS: BP 120/60
[2017-10-29] MEDS: CATHETER FLUSH 10 ML SYR IV SCH (06:12)
[2017-10-29] MEDS ORDERED: KCL 20 MEQ TAB (K-DUR) PO SCH (07:00)
[2017-10-29 08:00] VITALS: BP 108/54
--- NOTE | 2017-10-29 08:17 | Discharge Summary ---
Diagnosis/Chief Complaint Date of Admission Oct 27, 2017 at 11:00 Date of Discharge Discharge Date: Oct 29, 2017 Discharge Time: 10:00 Admission Diagnosis Admission Diagnosis SUBSEGMENTAL PULMONARY EMBOLI CONGESTIVE HEART FAILURE PLEURAL EFFUSIONS AFIB SICK SINUS SYNDROME HX OF ABDOMINAL AORTIC ANEURYSM REPAIR PVD ANEMIA NEUTROPENIA DIZZINESS/VERTIGO Discharge Diagnosis SUBSEGMENTAL PULMONARY EMBOLI CONGESTIVE HEART FAILURE PLEURAL EFFUSIONS AFIB SICK SINUS SYNDROME HX OF ABDOMINAL AORTIC ANEURYSM REPAIR PVD ANEMIA NEUTROPENIA DIZZINESS/VERTIGO Reason Hospital Visit This is an 87-year-old white male who has had increased shortness of breath over the last day or 2. He denies having any PND or orthopnea. This morning he felt like the world was spinning and he got very dizzy and became pale and presented to the emergency room with similar complaints. The patient is well known to me and appears slightly puffy. Cardiac history is reviewed. He had a similar episode in the fall of 2016 and was diagnosed with a TIA or a small CVA. Because of his pacemaker MRI is not possible. Discharge Summary Discharge Physical Examination Allergies: Coded Allergies: doxycycline (Verified Allergy, Severe, DIZZINESS/NAUSEA, 10/27/17) hydrocodone (Verified Allergy, Intermediate, DIZZINESS, 10/27/17) loratadine (Verified Adverse Reaction, Intermediate, HEADACHE, 10/27/17) Vitals & I&Os Vital Signs Date Time Temp Pulse Resp B/P (MAP) Pulse Ox O2 Delivery O2 Flow Rate FiO2 10/29/17 07:00 69 10/29/17 04:00 98.4 20 120/60 (80) 95 Room Air Hospital Course 1. Subsegmental pulmonary emboli-on Xarelto-may require vena caval filter 2. Possible increased congestive heart failure as evidenced by pleural effusions and dyspnea-we'll repeat echo 3. History of November atrial fibrillation with sick sinus syndrome status post pacemaker placement 4. Valvular heart disease possible increased mitral valve regurgitation as evidenced by possible [place] 5. History of abdominal aneurysm with repair by Dr. Jack no evidence of leak 6. Peripheral vascular disease- both of t extremities and carotid arteries 7. Anemia we'll check iron studies B12 and Hemoccult stools, will also check for re-tic rate 8. Neutropenia new- may require hematology consult Discharge Condition at discharge IMPROVED Instructions to patient/family Please see electronic discharge instructions given to patient. Discharge Medications Reviewed and agree with Discharge Medication list on patient's Discharge Instruction sheet Clinical Quality Measures DVT/VTE Risk/Contraindication: Risk Factor Score Per Nursin RFS Level Per Nursing on Admit: 4+=Very High RAJI CHAWLA MD Oct 29, 2017 08:17
[2017-10-29] MEDS ORDERED: FURO-124 PO (08:21)
[2017-10-29] MEDS ORDERED: POTA10CA43 PO (08:21)
[2017-10-29] MEDS ORDERED: SCOP1PAT11 TOP (08:21)
--- NOTE | 2017-10-29 08:22 | Discharge Inst-Complex ---
PDI Med Rec & Follow Up Appt. New Medications: Furosemide (Lasix) 40 Mg Tablet 40 MG PO DAILY for 30 Days, #30 TAB 2 Refills Potassium Chloride (Potassium Chloride) 10 Meq Capsule.er 10 MEQ PO DAILY, #30 CAP 2 Refills Scopolamine (Transderm-Scop) 1 Each Patch.td72 1.5 MG TOP Q72H, #11 PATCH 3 Refills Continued Medications: Acetaminophen (Tylenol Extra Strength) 500 Mg Tablet 1000 MG PO Q6H PRN for PAIN-MILD, TAB Alprazolam (Alprazolam) 0.5 Mg Tablet 0.5 MG PO TID PRN for ANXIETY Aspirin (Aspirin EC) 81 Mg Tablet.dr 81 MG PO DAILY, TAB Atorvastatin Calcium (Atorvastatin Calcium) 40 Mg Tablet 40 MG PO HS, TAB Cetirizine HCl (Zyrtec) 10 Mg Tablet 10 MG PO DAILY PRN for ALLERGIES, TAB DOSE NOT TAKE WHEN HE IS RECEIVING ALLERGY SHOTS Citalopram Hydrobromide (Citalopram HBr) 10 Mg Tablet 15 MG PO DAILY, TAB TAKES 1 & 1/2 (10MG) TABLET Enalapril Maleate (Enalapril Maleate) 2.5 Mg Tablet 2.5 MG PO BID, TAB Finasteride (Finasteride) 5 Mg Tablet 5 MG PO DAILY, TAB Multivitamin (Daily Multiple Vitamin) 1 Each Tablet 1 TAB PO DAILY, TAB Nebivolol HCl (Bystolic) 10 Mg Tab 10 MG PO HS, TAB Nitroglycerin (Nitrolingual) 12 Gm Mcdavid 1 SPRAY TL UD PRN for CHEST PAIN, EA Fyffe-3 Fatty Acids/Fish Oil (Fish Oil 1,200 mg Softgel) 1 Each Capsule 1200 MG PO BID, CAP Pantoprazole Sodium (Pantoprazole Sodium) 40 Mg Tablet.dr 40 MG PO DAILY PRN for STOMACH UPSET Rivaroxaban (Xarelto) 20 Mg Tablet 20 MG PO 1800, TAB Tamsulosin HCl (Tamsulosin HCl) 0.4 Mg Cap.er.24h 0.4 MG PO HS, CAP Prescription: Transmitted to Pharmacy Activity, Diet and PDI Resume Normal Activity: Yes Discharge Diet: Cardiac Diet Driving Instructions: No Driving for 24 Hours Symptoms to Reoprt to : Bleeding Excessive, Fever Over 101 Degrees F, Pain/ Pressure in Chest, Shortness of Breath For Problems or Questions: Contact Your Physician, Go to Emergency Room Infection Signs and Symptoms: Temperature Above 101 F RAJI CHAWLA MD Oct 29, 2017 08:22
[2017-10-29] MEDS ORDERED: FUROSEMIDE 40 MG (LASIX) TAB PO SCH (09:00)
[2017-10-29] MEDS ORDERED: FURO20TA4 PO (09:13)
--- NOTE | 2017-10-29 09:20 | Cardiology Progress Note ---
Subjective Date Seen by Provider: Oct 29, 2017 Time Seen by Provider: 09:13 Subjective/Events-last exam Patient is in bed, feeling better, no dizziness, no chest pain or shortness of breath Review of Systems General: No Chills, No Night Sweats, No Fatigue, No Malaise, No Appetite, No Other HEENT: No Head Aches, No Visual Changes, No Eye Pain, No Ear Pain, No Dysphasia , No Sinus Congestion, No Post Nasal Drip, No Sore Throat, No Other Pulmonary: Dyspnea, No Cough, No Pleuritic Chest Pain, No Other Cardiovascular: No: Chest Pain, Palpitations, Orthopnea, Paroxysmal Noc. Dyspnea, Edema, Lt Headedness, Other Objective-Cardiology Exam Last Set of Vital Signs Vital Signs 10/29/17 10/29/17 10/29/17 04:00 07:00 08:20 Temp 98.4 Pulse 69 Resp 20 B/P (MAP) 120/60 (80) Pulse Ox 95 O2 Delivery Room Air Capillary Refill : Less Than 3 Seconds I&O Intake and Output 10/29/17 00:00 Intake Total 1780 ml Output Total 3375 ml Balance -1595 ml Intake Oral 1780 ml Output Urine Total 3375 ml General: Alert, Oriented X3, Cooperative HEENT: Atraumatic, PERRLA Neck: Supple, No JVD, No Thyromegaly Lungs: Clear to Auscultation, Normal Air Movement Heart: Regular Rate, Normal S1, Normal S2, Other (systolic murmur) Abdomen: Normal Bowel Sounds, Soft, No Tenderness, No Hepatosplenomegaly, No Masses Extremities: No Clubbing, No Cyanosis, No Edema, Normal Pulses, No Tenderness/ Swelling Skin: No Rashes, No Breakdown, No Significant Lesion Neuro: Normal Gait, Normal Speech, Strength at 5/5 X4 Ext, Normal Tone, Sensation Intact Psych/Mental Status: Mental Status NL, Mood NL A/P-Cardiology Admission Diagnosis Vertigo Congestive heart failure Coronary artery disease Hypertension Assessment/Plan Vertigo and dizziness, improved, ok for discharge Pulm emboli of unknown age, small pulmonary emboli in a few sub-segmental branches of the left lower lobe on CT angio of the chest on 10/27/17 Acute on chronic systolic and diastolic congestive heart failure; last echocardiogram done 10/28/17 revealed EF 50-55 percent. Left atrium mild dilated. Mild to moderate tricuspid and mitral regurgitation, PA pressure 25mmHg, better today, okay for discharge and change Lasix to 20 mg daily and take additional dose as needed Coronary artery disease status post CABG 5 in 1996 with last cardiac catheterization was in September 2014 showed severe [place] coronary artery disease, patent GUAN to LAD, one vein graft bifurcating into 5 branches, the branches to the first and second obtuse marginal branches and PDA and PLV were patent. The vein graft to the diagonal artery has severe stenosis at the anastomosis point, the artery is fairly small not amenable to intervention with small vessel disease distally. Normal left ventricular size and function, ejection fraction 60 percent Stress test of 10/25/15 showed diaphragmatic attenuation with typical male pattern no sig ischemia or infarction Paroxysmal atrial fibrillation/ sick sinus syndrome; status post permanent pacemaker placement functioning normally on eval of Jul 2017 Chronic oral anticoagulation with rivaroxaban, continue to monitor Hypertension, continue to monitor Hyperlipidemia, continue to monitor Abdominal aortic aneurysm, infrarenal, measuring 4.3 x 4.5 cm, monitor by [facility]; has had endovascular repair of the aneurysm with Dr. Js Lakhani in May 2015 using [id number] x166 Endurant main body inserted through right femoral access and 16 x 13 x 124 Endurant contralateral limb via the left femoral access with balloon angioplasty to the right and left common iliac arteries. PAD with BEKA 0.9 on the right and 0.72 on the left; monitored by Dr Squires and [facility] H/o carotid artery stenosis and R CEA; monitored by [facility] Orthostatic dizziness, chronic. Clinical Quality Measures DVT/VTE Risk/Contraindication: Risk Factor Score Per Nursin RFS Level Per Nursing on Admit: 4+=Very High RAS SQUIRES MD Oct 29, 2017 09:20
[2017-10-29] MEDS: ENALAPRIL 2.5 MG (VASOTEC) TAB PO SCH (09:23)
[2017-10-29] MEDS: ASPIRIN E.C. 81 MG (ECOTRIN) TAB PO SCH (09:24)
[2017-10-29 12:00] VITALS: BP 132/61
[2017-10-30] MEDS ORDERED: SCOPOLAMINE PATCH REMOVAL TP SCH (08:59)
[2017-10-30] MEDS ORDERED: SCOPOLAMINE 1.5 MG (TRANSDERM-SCOP) PATCH TOP SCH (09:00)
== END 2017-10-29 08:21 | disposition home or self-care (01) ==
LOC: EDUNIT# 09:02 → ER 09:03 → UNDOADMOB 11:00 → 4TH 11:00 → UNDODISOB 10-29 12:40
PROVIDERS: ADMIT Internal Medicine; ATTEND Family Medicine
DX: I26.99 Other pulmonary embolism without acute cor pulmonale (principal); I11.0 Hypertensive heart disease with heart failure; I50.43 Acute on chronic combined systolic (congestive) and diastolic (congestive) heart failure; D64.9 Anemia, unspecified; I48.0 Paroxysmal atrial fibrillation; I08.1 Rheumatic disorders of both mitral and tricuspid valves; D70.9 Neutropenia, unspecified; J90 Pleural effusion, not elsewhere classified; R42 Dizziness and giddiness; I25.10 Atherosclerotic heart disease of native coronary artery without angina pectoris; G43.909 Migraine, unspecified, not intractable, without status migrainosus; N40.0 Benign prostatic hyperplasia without lower urinary tract symptoms; K59.09 Other constipation; E78.5 Hyperlipidemia, unspecified; I73.9 Peripheral vascular disease, unspecified; F41.9 Anxiety disorder, unspecified; Z95.1 Presence of aortocoronary bypass graft; Z95.0 Presence of cardiac pacemaker; Z79.01 Long term (current) use of anticoagulants; Z79.82 Long term (current) use of aspirin; Z79.899 Other long term (current) drug therapy
CPT/HCPCS: 36415; 70450; 71045; 71275; 74177; 80053; 81000; 82274; 82550; 82553; 82607; 82728; 83540; 83735; 83880; 84443; 84484; 85025; 85045; 85610; 85730; 93005; 93041; 93306; 96374; 96375; G0378

== ENCOUNTER → 2018-02-18 | Outpatient (CLI) | payer MEDICARE, OTHER ==
[~2018-02-18] MED LIST changes: +FURO-124 PO; +IOHEXOL 350 MG/ML 100 ML (OMNIPAQUE 350) VIAL IV ONE; +NS 250 ML (IVPB) BAG IV ONE; +PANT40TA3 PO; +SCOP1PAT11 TOP
[2018-02-18 08:40] LABS: CALCIUM 9.4 MG/DL (8.5-10.1); CREATININE SERUM 1.17 MG/DL (0.60-1.30); POTASSIUM 4.3 MMOL/L (3.6-5.0)
--- NOTE | 2018-02-18 09:34 | Diagnostic Imaging Report ---
PROCEDURE: CT chest with contrast only. TECHNIQUE: Multiple contiguous axial images were obtained through the chest after administration of intravenous contrast. INDICATION: Followup right upper lobe nodules. Comparison is made with prior CT chest from 10/27/2017. FINDINGS: Left chest wall cardiac pacemaker remains in place. No axillary lymphadenopathy is detected. No definite hilar or mediastinal lymphadenopathy is identified. The heart does appear to be enlarged. No pericardial fluid is seen. There has been significant improvement in bilateral pleural effusion since prior study. Only trace pleural fluid on the left remains. Parenchymal evaluation again demonstrates an ovoid nodular density in the juxtapleural location in the medial right upper lobe, image 14. This measures 17 mm but remains stable when compared with prior exam. Areas of scarring or atelectasis left lower lobe appears stable. No new parenchymal abnormalities are seen. The upper abdomen is stable. IMPRESSION: 1. Significant improvement in bilateral pleural effusions since exam from 10/27/2017. Only minimal left pleural fluid remains. 2. Stable right upper lobe pulmonary nodule. Continued close interval followup is recommended with repeat CT chest in 4-6 months to confirm stability. Dictated by: Dictated on workstation # [id number]
== END ==
LOC: RAD 07:59
PROVIDERS: ATTEND Thoracic Surgery (Cardiothoracic Vascular Surgery)
DX: J90 Pleural effusion, not elsewhere classified (principal); R91.8 Other nonspecific abnormal finding of lung field
CPT/HCPCS: 36415; 71260; 80048

== ENCOUNTER → 2018-06-24 | Outpatient (CLI) | payer MEDICARE, OTHER ==
[~2018-06-24] MED LIST changes: +CATHETER FLUSH 10 ML SYR IV PRN; +RECEIVED CONTRAST (Hold Metformin) IV SCH
[2018-06-24 09:05] LABS: BUN/CREATININE RATIO 18; CALCIUM 9.2 MG/DL (8.5-10.1); CARBON DIOXIDE 25 MMOL/L (21-32); CHLORIDE 108 MMOL/L (98-107); CREATININE SERUM 1.12 MG/DL (0.60-1.30); GFR ESTIMATED > 60; GLUCOSE 100 MG/DL (70-105); POTASSIUM 4.2 MMOL/L (3.6-5.0); SODIUM 140 MMOL/L (135-145)
--- NOTE | 2018-06-24 09:43 | Diagnostic Imaging Report ---
PROCEDURE: CT chest with contrast only. TECHNIQUE: Multiple contiguous axial images were obtained through the chest after administration of intravenous contrast. INDICATION: Lung nodule, followup. COMPARISON: Comparison is made with prior chest from 02/18/2018. FINDINGS: Left chest wall cardiac pacemaker remains in place. No axillary lymphadenopathy is seen. No mediastinal or hilar lymphadenopathy is identified. Heart remains enlarged. There are coronary arterial calcifications. No pericardial fluid is detected. There has been some slight increase in left-sided pleural effusion since prior CT. There has also been development of trace right-sided pleural fluid. Previously noted nodular density in the medial right upper lobe subpleural location measures 18 mm x 12 mm compared with 17 mm x 12 mm on prior exam. There is some associated ill-defined airspace density along the inferior aspect of the lesion as well, similar to prior. Remainder of the lung lopez are clear apart from some scarring or atelectasis in the left lower lobe. The upper abdomen is stable. IMPRESSION: 1. Increase in bilateral pleural effusions when compared with prior CT from 02/18/2018. 2. Overall stable right upper lobe density when compared with prior CT. Continued close followup is recommended. Dictated by: Dictated on workstation # [id number]
== END ==
LOC: RAD 08:25
PROVIDERS: ATTEND Thoracic Surgery (Cardiothoracic Vascular Surgery)
DX: J98.4 Other disorders of lung (principal); J90 Pleural effusion, not elsewhere classified
CPT/HCPCS: 36415; 71260; 80048

== ENCOUNTER 2018-10-08 12:47 | Outpatient (CLI) | payer MEDICARE, OTHER ==
[~2018-10-08] VITALS: Ht 185.4 cm; Wt 78.3 kg
[2018-10-08] MEDS ORDERED: methylPREDNISolone 125 MG (Solu-MEDROL) VIAL IV PRN (13:15)
[2018-10-08] MEDS ORDERED: ACETAMINOPHEN 325 MG TABLET PO PRN (13:15)
[2018-10-08] MEDS ORDERED: diphenhydrAMINE 50 MG/ML INJ (BENADRYL) IV PRN (13:15)
[2018-10-08] MEDS ORDERED: IRON DEXTRAN 25 MG/NS 6.25 ML TOTAL VOLUME IV ONE ×3 (13:15)
[2018-10-08] MEDS ORDERED: IRON DEXTRAN 1,000 MG/NS 250 ML IVPB IV ONE ×2 (13:15)
[2018-10-08 13:46] VITALS: BP 109/48
== END 2018-10-08 16:10 | disposition home or self-care (01) ==
LOC: SDC 12:47
PROVIDERS: ATTEND Family Medicine
DX: D50.9 Iron deficiency anemia, unspecified (principal)

== ENCOUNTER → 2019-01-31 | Outpatient (CLI) | payer MEDICARE, OTHER ==
[~2019-01-31] MED LIST changes: -CATHETER FLUSH 10 ML SYR IV PRN; -IOHEXOL 350 MG/ML 100 ML (OMNIPAQUE 350) VIAL IV ONE; +MULT-974 PO; -NS 250 ML (IVPB) BAG IV ONE; -RECEIVED CONTRAST (Hold Metformin) IV SCH; -RIVA20TA PO; +RIVA20TA2 PO
== END ==
LOC: CARD 08:39
PROVIDERS: ATTEND Internal Medicine Cardiovascular Disease
DX: I25.10 Atherosclerotic heart disease of native coronary artery without angina pectoris (principal); I10 Essential (primary) hypertension; E78.2 Mixed hyperlipidemia; R06.02 Shortness of breath; I08.1 Rheumatic disorders of both mitral and tricuspid valves
CPT/HCPCS: 93306